=== PATIENT | male | born 1970 | race Caucasian/White ===

== ENCOUNTER 2020-06-20 10:29 | Day surgery (SDC) | payer BC, SELFPAY ==
[2020-06-17 08:18] VITALS: BMI 31.8
--- NOTE | 2020-06-18 15:11 | P.CONAN_ITS ---
Documented by User: Gabrielle Will 06/18/20 15:12 HPI - Anesthesia Eval Consult details Narrative: 50yo M for Colonoscopy [facility] Past Medical History Medical History Hypertension Surgical History Surgical History History of back surgery Social History Social History Smoking Status: Unknown if ever smoked Use of substances other than those prescribed or required for medical reasons: No Advance Directives: No Advance Directives Information Provided: No Advance Directives on File: No Meds Allergies Allergy/AdvReac Type Severity Reaction Status Date / Time amoxicillin Allergy Unknown Unknown Unverified 06/17/20 08:15 Home Medications Medication Instructions Recorded Confirmed Type lisinopril 1 tab PO DAILY 06/17/20 06/17/20 History multivitamin 1 cap PO DAILY 06/17/20 06/17/20 History Exam Exam Date and Time: June 18, 2020 1511 Height,Weight and Vital Signs: Height 6 ft Weight 106.594 kg Assessment and Plan Assessment Anesthesia Assessment: Chart Reviewed Documented by User: Kamille Shankar 06/20/20 10:52 [facility] Past Medical History Medical History Hypertension Surgical History Surgical History History of back surgery Social History Social History Smoking Status: Unknown if ever smoked Use of substances other than those prescribed or required for medical reasons: No Advance Directives: No Advance Directives Information Provided: No Advance Directives on File: No Meds Allergies Allergy/AdvReac Type Severity Reaction Status Date / Time amoxicillin Allergy Unknown Unknown Unverified 06/17/20 08:15 Home Medications Medication Instructions Recorded Confirmed Type lisinopril 1 tab PO DAILY 06/17/20 06/17/20 History multivitamin 1 cap PO DAILY 06/17/20 06/17/20 History Exam Airway Mallampati Class: I TM Dist: >3cm Neck ROM: Full Heart: RRR Lungs: CTA Assessment and Plan Assessment Anesthesia Assessment: Anesthesia Plan Discussed and Chart Reviewed Final Anesthetic Review NPO: Yes ASA Class: II Final Preanesthetic Review: Meds/Allgs Chart Reviewed, Consent Obtained/Reviewed and Anes Risks/Benef Reviewed Patient Risk: Low Procedure Risk: Low Anesthetic Plan Anesthetic Plan: MAC: Disposition: Standard PACU
--- NOTE | 2020-06-20 10:55 | MHC.SHP ---
Pre-Procedural Eval Section A The patient is an INPATIENT: No Changes since office visit: No Cold of Flu in the past 2 weeks, No New Medical Problems, No Changes in Medication and No Patient answered all questions The History & Physical has been completed within 30 days and I have reviewed it.: Yes Section B Chief Complaint: Screening Allergies: Allergies Allergy/AdvReac Type Severity Reaction Status Date / Time amoxicillin Allergy Unknown Unknown Unverified 06/17/20 08:15 Plan Patient has been examined and remains a candidate for the planned procedure
[2020-06-20] MEDS: Lactated Ringers 1,000 ML 100 ML IVCONT (11:01)
[2020-06-20 11:24] VITALS: BP 105/70; PULSE 72; RESP 16; TEMP 36.6; O2SAT 95
--- NOTE | 2020-06-20 11:29 | PM.OP ---
Brief Operative Note Date of Service: 06/20/20 Pre-op diagnosis: screening Post-op diagnosis: same Procedure: colonoscopy Surgeon: Wili Hernandez Anesthesia: MAC Estimated blood loss (mL): 0 Pathology: none sent Condition: stable Disposition: PACU
--- NOTE | 2020-06-20 11:30 | OP_ITS ---
SURGEON: Wili Hernandez MD INDICATIONS: Colon cancer screening. PREOPERATIVE DIAGNOSIS: POSTOPERATIVE DIAGNOSIS: PROCEDURE PERFORMED: Colonoscopy to the terminal ileum. ESTIMATED BLOOD LOSS: COMPLICATIONS: ANESTHESIA: ASSISTANTS: SPECIMENS: MEDICATIONS: Monitored anesthesia care. DESCRIPTION OF PROCEDURE: History and physical performed. The risks and benefits of the procedure were explained to the patient. Informed consent was obtained. The patient was placed in the left lateral decubitus position. A digital rectal exam was performed and was found to be normal. The Olympus pediatric video colonoscope was introduced into the rectum and advanced to the cecum without difficulty. The cecum was identified by transillumination, palpation, and identification of ileocecal valve. Examination was performed and the scope was removed. He tolerated the procedure well and was taken to recovery area in stable condition. FINDINGS: The terminal ileum was normal. The visualized colonic mucosa was normal. The quality of the prep was good. No polyps were identified. Retroflexed examination showed hypertrophic anal papillae and small internal hemorrhoids. IMPRESSION: Normal colonoscopy. RECOMMENDATIONS: 1. Follow up as needed. 2. Repeat colonoscopy is recommended in 10 years for average risk individuals. MD OLVIN Rivera/ANA LUISA / [id number]
[2020-06-20 11:39] VITALS: BP 122/78; PULSE 72; RESP 16; O2SAT 95
[2020-06-20 11:54] VITALS: BP 129/81; PULSE 60; RESP 16; TEMP 36.6; O2SAT 96
== END 2020-06-20 12:31 | disposition home or self-care (01) ==
PROVIDERS: PCP Internal Medicine; Visit Provider Internal Medicine Gastroenterology
PROC: 0DJD8ZZ Inspection of Lower Intestinal Tract, Via Natural or Artificial Opening Endoscopic (ICD-10-PCS; CPT 45378; principal; 2020-06-20 11:50)
DX: Z12.11 Encounter for screening for malignant neoplasm of colon (principal); K62.89 Other specified diseases of anus and rectum; K64.8 Other hemorrhoids; I10 Essential (primary) hypertension; Z79.899 Other long term (current) drug therapy
CPT/HCPCS: 45378

== ENCOUNTER 2020-08-14 14:45 | Outpatient (REF) | payer BC, SELFPAY | END 2020-08-14 14:46 | disposition home or self-care (01) | LOC: HO.HOSX 14:45 | PROVIDERS: Visit Provider Orthopaedic Surgery | DX: Z13.89 Encounter for screening for other disorder (principal) ==

== ENCOUNTER → 2020-08-15 11:56 | Outpatient (BNVA) | payer OTHER, SELFPAY | PROVIDERS: PCP Internal Medicine; Visit Provider Orthopaedic Surgery | DX: M75.51 Bursitis of right shoulder (principal) | CPT/HCPCS: 20610; J1100 ==

== ENCOUNTER 2020-11-13 17:00 | Outpatient (RCR) | payer OTHER, SELFPAY ==
--- NOTE | 2020-09-18 16:12 | MHC.PT.EP ---
[facility] [place] Office [place] Office [place] Office [address] Carmelo Ceballos [address] [phone] F: [phone] F: [phone] F: [phone] F: [phone] Physical Therapy Plan of Care Date of Evaluation: 09/18/20 Date of Surgery: Diagnosis: Bursitis of the right shoulder. Assessment: This is a 50 y/o male referred to skilled PT for bursitis of the right shoulder. 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 He had severe pain for a while which has since subsided. Now, he describes the discomfort as nagging and sore. Assessment reveals tenderness to palpation over the right supraspinatus tendon, mild decreased AROM into flexion and abduction, mild decreased PROM into these motions, impaired strength of the RTC and periscapular muscles, mild postural deficits, decreased/impaired scapulohumeral joint rhythm, mild impaired accessory shoulder mobility, decreased thoracic spinal mobility, and strong/painful resisted tests into external rotation and abduction. The Pt will benefit from skilled PT services in order to reduce impairments and improve limitations including: inability to lay on his left side, soreness w/ all selfcare tasks, decreased ability to lift/carry, and difficulty sleeping. ?? RTC partial tear. Frequency and Duration: The patient will be seen 1x/week for 8 weeks Short Term Goals: -In 3 weeks, Pt to restore PROM of the right shoulder to WNL -In 4 weeks, Pt to report <3/10 pain w/ AROM of the right shoulder [place] Goals: -In 6 weeks, Pt to reduce TTP to absent -In 8 weeks, Pt to demonstrate the ability to lift/place/reach for a 3# object on a high shelf w/ <2/10 pain -In 8 weeks, Pt to improve SPADI score by at least 13 points. (IE: 54/130) Treatment Plan: Modalities to reduce pain, spasms and effusion. Manual therapy to restore motion and function. Therapeutic exercise to improve strength and flexibility. Neuromuscular re-education for posture and balance. Therapeutic activities to return to functional activities of daily living. Electronically signed by: Melissa Leon PT, DPT Please sign and return to therapist. Thank you for your referral.
== END 2021-04-08 13:07 | disposition home or self-care (01) ==
LOC: HO.PT 17:00
PROVIDERS: PCP Internal Medicine; Visit Provider Orthopaedic Surgery
DX: M75.51 Bursitis of right shoulder (principal)
CPT/HCPCS: 97110; 97112; 97140; 97161

== ENCOUNTER 2021-01-19 14:54 | Outpatient (REF) | payer OTHER, SELFPAY ==
--- NOTE | ~2021-01-19 | XR_ITS ---
EXAMINATION: XR CHEST CLINICAL INFORMATION: Chest pain COMPARISON: None TECHNIQUE: 2 views of the chest were obtained. FINDINGS: The cardiac and mediastinal contours are normal. The lungs are clear. There is no pleural effusion or pneumothorax. There are degenerative changes of the spine. XR/XR chest 2V IMPRESSION: No evidence for acute disease in the chest.
--- NOTE | 2021-01-19 14:59 | ECG_ITS ---
Test Reason : SCREENING ENC Blood Pressure : / mmHG Vent. Rate : 069 BPM Atrial Rate : 069 BPM P-R Int : 170 ms QRS Dur : 110 ms QT Int : 394 ms P-R-T Axes : 050 -58 015 degrees QTc Int : 422 ms Normal sinus rhythm Left axis deviation Abnormal ECG When compared with ECG of 03-MAY-2010 20:54, Non-specific change in ST segment in Inferior leads Referred By: Leroy Schneider Electronically Signed By:JEFFERY DOMINIQUE
== END 2021-01-19 14:55 | disposition home or self-care (01) ==
LOC: HO.XRAY 14:54
PROVIDERS: PCP Internal Medicine; Visit Provider Internal Medicine
DX: R07.9 Chest pain, unspecified (principal)
CPT/HCPCS: 71046; 93005

== ENCOUNTER 2022-06-11 14:08 | Inpatient (IN) | payer OTHER, SELFPAY ==
--- NOTE | ~2022-06-11 | XR_ITS ---
EXAMINATION: XR KNEE, RIGHT CLINICAL INFORMATION: Swelling. Pain. COMPARISON: None TECHNIQUE: Two views of the right knee. FINDINGS: No acute fracture or dislocation. Tricompartmental marginal osteophytes, with subchondral sclerosis. Well-corticated ossific density within the posterior intercondylar notch may represent a loose body in joint space or within a Savage's cyst. Small knee joint effusion. Prominent soft tissue swelling anterior to the patella and patellar ligament. XR/XR knee RT 2V IMPRESSION: Marked prepatellar soft tissue swelling and/or prepatellar bursitis. Small knee joint effusion. No fractures.
[2022-06-11 14:11] VITALS: BP 158/98; PULSE 100; RESP 20; TEMP 37.1; O2SAT 96; BMI 30.4
--- NOTE | 2022-06-11 15:20 | ED_ITS ---
HPI - Extremity Problem General Chief complaint: Extremity Problem <Shital Bolaños MASSIEL Vargas - Last Filed: 06/11/22 16:33> Stated complaint: swollen knee; no injury <Shital Bolaños MASSIEL Vargas - Last Filed: 06/11/22 16:33> Time Seen by Provider: 06/11/22 15:16 <Shital Marie MASSIEL Vargas - Last Filed: 06/11/22 16:33> Source: patient <Shital Bolaños MASSIEL Vargas - Last Filed: 06/11/22 16:33> Mode of arrival: ambulatory <Shital Bolaños MASSIEL Vargas - Last Filed: 06/11/22 16:33> Limitations: no limitations <Shital Bolaños MASSIEL Vargas - Last Filed: 06/11/22 16:33> History of Present Illness HPI Narrative: Patient is a 52-year-old male with past medical history of hypertension who presents to the ED today with right knee pain and swelling x2-3 days. He reports that his pain, swelling, and redness have increased since the onset of symptoms. He denies any trauma to knee. He reports having a fever last night T-max 102 degrees for which he took Tylenol with mild relief in symptoms. He denies any previous trauma to knee, HX of DVT/PE, numbness/tingling, decreased sensation, recent travel, and recent illnesses. <Shital Persaudheron Vargas CNP - Last Filed: 06/11/22 16:33> Related Data Home medications: Home Medications Medication Instructions Recorded Confirmed multivitamin 1 cap PO DAILY 06/17/20 02/25/21 Previous Rx's Medication Instructions Recorded lisinopril 20 mg tablet 20 mg PO DAILY 90 days #90 tabs 12/24/21 <Shitalfaye Vargas CNP - Last Filed: 06/11/22 16:33> Allergies/Adverse reactions: Allergies Allergy/AdvReac Type Severity Reaction Status Date / Time amoxicillin Allergy Unknown Unknown Verified 01/16/21 13:32 <Shitalfaye Vargas CNP - Last Filed: 06/11/22 16:33> Review of Systems Review of Systems: Constitutional: Positive fever. No weight loss, chills, weakness or fatigue. Skin: No rash or itching. Cardiovascular: No chest pain, chest pressure or chest discomfort. No pa lpitations or pedal edema. Respiratory: No shortness of breath, cough or sputum production. Gastrointestinal: No anorexia, nausea, vomiting or diarrhea. No abdominal pain Genitourinary: No burning micturition. No urinary frequency or incontinence. Neurologic: No headache, dizziness, syncope, Musculoskeletal: Positive right knee pain, swelling, redness. No other joint pain or stiffness. Hematologic: No bleeding or bruising. Lymphatics: No enlarged lymph nodes. <Shital Vargas CNP - Last Filed: 06/11/22 16:33> Yes all other systems are reviewed and are negative <Shital Vargas CNP - Last Filed: 06/11/22 16:33> [facility] Past Medical History Attestation statement: The following information was validated with the patient. <Shital Vargas CNP - Last Filed: 06/11/22 16:33> Source: old records reviewed <Shital Vargas CNP - Last Filed: 06/11/22 16:33> Medical History: Medical History Bursitis of right shoulder Hypertension <Shital Vargas CNP - Last Filed: 06/11/22 16:33> Surgical History: Surgical History History of back surgery History of lumbar laminectomy <Shital Vargas CNP - Last Filed: 06/11/22 16:33> Family History Family History: Family History Father CVD (cardiovascular disease) Mother No problems noted. 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 <Shital Vargas CNP - Last Filed: 06/11/22 16:33> Physical Exam Vital Signs: Vital Signs: Last Vital Signs Temp 97.8 F 06/11/22 16:43 Pulse 84 06/11/22 16:43 Resp 14 06/11/22 16:43 BP 148/82 H 06/11/22 16:43 Pulse Ox 96 06/11/22 14:11 O2 Del Method 06/11/22 14:11 BMI result Body Mass Index 30.4 <Shital Vargas CNP - Last Filed: 06/11/22 16:33> Vital Signs: Last Vital Signs Temp 97.8 F 06/11/22 16:43 Pulse 84 06/11/22 16:43 Resp 14 06/11/22 16:43 BP 148/82 H 06/11/22 16:43 Pulse Ox 96 06/11/22 14:11 O2 Del Method 06/11/22 14:11 BMI result Body Mass Index 30.4 <JESSE Hill - Last Filed: 06/11/22 17:43> Appearance: Alert.?Oriented to person, place and time. No acute distress.?Normal affect. Eyes: Pupils equal, round and reactive to light.? ENT: Pharynx normal.?? Neck: Normal inspection.? Neck supple.?? CVS: Heart sounds normal. Normal heart rate and rhythm.? Pulses normal.?? Respiratory: No respiratory distress.? Lung sounds clear to auscultation bilater ally?? Abdomen: Soft and non-tender. Normoactive bowel sounds. No pulsatile mass.?? Skin: Skin warm and dry.? Normal skin color.? Normal skin turgor.?? Extremities: Moderate effusion noted over right patella. Erythema, warm to touch over the anterior knee and torres. Full ROM in right knee. No pain with axial loading, no passive flexion/extension of knee. No lower extremity edema.? No calf ttp? Neuro: Moves all extremities spontaneously. Sensation intact bilaterally. CN II- XII intact. No focal neuro deficits. Ambulates with normal steady gait. <Shital Vargas CNP - Last Filed: 06/11/22 16:33> Course Course Course Narrative: Patient is a 52-year-old male with past medical history of hypertension who presents to the ED today with right knee pain and swelling x2-3 days. He reports a fever last night T-max 102 degrees for which he took Tylenol. Patient currently afebrile, mildly tachaycardic at 100 bpm, without hypoxia. PE remarkable for a moderate effusion over the right patella, erythema and warmth over the anterior knee and torres. No pain with passive flexion/extension or axial loading right knee. X-ray of the right knee shows prepatellar soft tissue swelling/prepatellar bursitis, small joint effusion, no fractures. Borders of erythema outlined with skin marker. Will order CBC, CMP, ESR, CRP, lactic acid, blood cultures x2, concern for cellulitis, septic bursitis, septic arthritis, reactive arthritis. Will start patient on ceftriaxone and vanco for empiric treatment.. <Shital Vargas CNP - Last Filed: 06/11/22 16:33> Reevaluation(s) Reevaluation #1: Patient signed out to David MOLINA pending labs and re-evaluation <Shital Vargas CNP - Last Filed: 06/11/22 16:33> Time: 16:23 <Shital Vargas CNP - Last Filed: 06/11/22 16:33> Reevaluation #2: PATIENT TO BE ADMITTED FOR RIGHT LOWER EXTREMITY CELLULITIS AND POSSIBLE SEPTIC BURSITIS. ESR CRP ELEVATED. CASE DISCUSSED WITH DR. Romero WHO AGREE PATIENT SHOULD BE ADMITTED AT LEAST FOR 24 HOURS FOR IV ANTIBIOTICS AND DOES NOT RECOMMEND ASPIRATION OF BURSITIS IN CASE FLUID IS NOT INFECTED AND INTRODUCING NEEDLE WITH BRINGING SURROUNDING CELLULITIC INFECTION INTO KNEE JOINT. CASE DISCUSSED WITH DR. SHELTON IN [facility] WHO AGREE WITH PLAN AND FOR ADMISSION <JESSE Hill - Last Filed: 06/11/22 17:43> Time: 17:40 <JESSE Hill - Last Filed: 06/11/22 17:43> MDM - Extremity (Nontraumatic) MDM Narrative Medical decision making narrative: ceLLULITIS, bURSITIS <JESSE Hill - Last Filed: 06/11/22 17:43> Medical Records Attestation: I reviewed the patient's medical records. <Shital Goodenome, PROFESSOR OF [employer]UDIES - Last Filed: 06/11/22 16:33> Lab Data Attestation: I reviewed the patient's lab results. <Shital Bolaños MASSIEL Vargas - Last Filed: 06/11/22 16:33> Result diagrams: : 06/11/22 16:06 06/11/22 16:06 <Shital Vargas CNP - Last Filed: 06/11/22 16:33> Labs: Lab Results 06/11/22 06/11/22 06/11/22 Range/Units 16:06 16:06 16:06 WBC 10.9 H (4.8-10.8) X10*3/uL RBC 4.96 (4.60-5.80) X10*6/uL Hgb 14.1 (14.0-18.0) g/dl Hct 42.2 (42.0-52.0) % MCV 85.1 (80.0-98.0) fL MCH 28.4 (27.0-33.0) pg MCHC 33.4 (31.0-36.0) g/dl RDW 12.4 (11.0-16.0) % Plt Count 246 (160-400) X10*3/uL MPV 10.0 (9.4-12.4) fL Immature Gran % (Auto) 0.4 (0.0-0.4) % Neut % (Auto) 75.0 H (45-73) % Lymph % (Auto) 13.7 L (20-40) % Forest % (Auto) 9.3 (2-11) % Eos % (Auto) 1.1 (0-4) % Baso % (Auto) 0.5 (0-2) % Lymph # (Auto) 1.5 (1.2-4.9) X10*3/uL Forest # (Auto) 1.0 (0.1-1.2) X10*3/uL Eos # (Auto) 0.1 (0.0-0.4) X10*3/uL Baso # (Auto) 0.1 (0.0-0.2) X10*3/uL Abs Immat Gran (auto) 0.04 H (0.00-0.03) X10*3/uL Absolute Neuts (auto) 8.2 (2.0-8.3) x10*3/uL Absolute Nucleated RBC 0.000 (0.0-0.012) X10*3/uL Nucleated RBC % (auto) 0.0 (0.0-0.2) /100WBC ESR 33 H (0-15) MM/HR Sodium 140 (135-145) mmol/L Potassium 4.1 (3.3-5.1) mmol/L Chloride 102 (96-108) mmol/L Carbon Dioxide 26 (22-29) mmol/L Anion Gap 16 (12-20) BUN 16 (9-16) mg/dL Creatinine 0.88 (0.5-1.4) mg/dL Estim Creat Clear Calc 121.1 Estimated GFR > 60 Random Glucose 95 (60-115) mg/dL Lactic Acid (0.5-2.0) mmol/L Uric Acid 5.3 (3.4-7.0) mg/dL Calcium 9.4 (8.4-10.2) mg/dL Total Bilirubin 0.6 (0.0-1.0) mg/dL AST 20 (5-37) U/L ALT 28 (0-40) U/L Alkaline Phosphatase 65 (39-117) U/L C-Reactive Protein 15.60 H (< or = 0.50) mg/dL Total Protein 8.1 H (6.5-8.0) g/dL Albumin 4.7 (3.5-5.0) g/dL 06/11/22 Range/Units 16:07 WBC (4.8-10.8) X10*3/uL RBC (4.60-5.80) X10*6/uL Hgb (14.0-18.0) g/dl Hct (42.0-52.0) % MCV (80.0-98.0) fL MCH (27.0-33.0) pg MCHC (31.0-36.0) g/dl RDW (11.0-16.0) % Plt Count (160-400) X10*3/uL MPV (9.4-12.4) fL Immature Gran % (Auto) (0.0-0.4) % Neut % (Auto) (45-73) % Lymph % (Auto) (20-40) % Forest % (Auto) (2-11) % Eos % (Auto) (0-4) % Baso % (Auto) (0-2) % Lymph # (Auto) (1.2-4.9) X10*3/uL Forest # (Auto) (0.1-1.2) X10*3/uL Eos # (Auto) (0.0-0.4) X10*3/uL Baso # (Auto) (0.0-0.2) X10*3/uL Abs Immat Gran (auto) (0.00-0.03) X10*3/uL Absolute Neuts (auto) (2.0-8.3) x10*3/uL Absolute Nucleated RBC (0.0-0.012) X10*3/uL Nucleated RBC % (auto) (0.0-0.2) /100WBC ESR (0-15) MM/HR Sodium (135-145) mmol/L Potassium (3.3-5.1) mmol/L Chloride (96-108) mmol/L Carbon Dioxide (22-29) mmol/L Anion Gap (12-20) BUN (9-16) mg/dL Creatinine (0.5-1.4) mg/dL Estim Creat Clear Calc Estimated GFR Random Glucose (60-115) mg/dL Lactic Acid 0.8 (0.5-2.0) mmol/L Uric Acid (3.4-7.0) mg/dL Calcium (8.4-10.2) mg/dL Total Bilirubin (0.0-1.0) mg/dL AST (5-37) U/L ALT (0-40) U/L Alkaline Phosphatase (39-117) U/L C-Reactive Protein (< or = 0.50) mg/dL Total Protein (6.5-8.0) g/dL Albumin (3.5-5.0) g/dL <Shital Vargas, PROFESSOR OF [employer] - Last Filed: 06/11/22 16:33> Lab Results 06/11/22 06/11/22 06/11/22 Range/Units 16:06 16:06 16:06 WBC 10.9 H (4.8-10.8) X10*3/uL RBC 4.96 (4.60-5.80) X10*6/uL Hgb 14.1 (14.0-18.0) g/dl Hct 42.2 (42.0-52.0) % MCV 85.1 (80.0-98.0) fL MCH 28.4 (27.0-33.0) pg MCHC 33.4 (31.0-36.0) g/dl RDW 12.4 (11.0-16.0) % Plt Count 246 (160-400) X10*3/uL MPV 10.0 (9.4-12.4) fL Immature Gran % (Auto) 0.4 (0.0-0.4) % Neut % (Auto) 75.0 H (45-73) % Lymph % (Auto) 13.7 L (20-40) % Forest % (Auto) 9.3 (2-11) % Eos % (Auto) 1.1 (0-4) % Baso % (Auto) 0.5 (0-2) % Lymph # (Auto) 1.5 (1.2-4.9) X10*3/uL Forest # (Auto) 1.0 (0.1-1.2) X10*3/uL Eos # (Auto) 0.1 (0.0-0.4) X10*3/uL Baso # (Auto) 0.1 (0.0-0.2) X10*3/uL Abs Immat Gran (auto) 0.04 H (0.00-0.03) X10*3/uL Absolute Neuts (auto) 8.2 (2.0-8.3) x10*3/uL Absolute Nucleated RBC 0.000 (0.0-0.012) X10*3/uL Nucleated RBC % (auto) 0.0 (0.0-0.2) /100WBC ESR 33 H (0-15) MM/HR Sodium 140 (135-145) mmol/L Potassium 4.1 (3.3-5.1) mmol/L Chloride 102 (96-108) mmol/L Carbon Dioxide 26 (22-29) mmol/L Anion Gap 16 (12-20) BUN 16 (9-16) mg/dL Creatinine 0.88 (0.5-1.4) mg/dL Estim Creat Clear Calc 121.1 Estimated GFR > 60 Random Glucose 95 (60-115) mg/dL Lactic Acid (0.5-2.0) mmol/L Uric Acid 5.3 (3.4-7.0) mg/dL Calcium 9.4 (8.4-10.2) mg/dL Total Bilirubin 0.6 (0.0-1.0) mg/dL AST 20 (5-37) U/L ALT 28 (0-40) U/L Alkaline Phosphatase 65 (39-117) U/L C-Reactive Protein 15.60 H (< or = 0.50) mg/dL Total Protein 8.1 H (6.5-8.0) g/dL Albumin 4.7 (3.5-5.0) g/dL 06/11/22 Range/Units 16:07 WBC (4.8-10.8) X10*3/uL RBC (4.60-5.80) X10*6/uL Hgb (14.0-18.0) g/dl Hct (42.0-52.0) % MCV (80.0-98.0) fL MCH (27.0-33.0) pg MCHC (31.0-36.0) g/dl RDW (11.0-16.0) % Plt Count (160-400) X10*3/uL MPV (9.4-12.4) fL Immature Gran % (Auto) (0.0-0.4) % Neut % (Auto) (45-73) % Lymph % (Auto) (20-40) % Forest % (Auto) (2-11) % Eos % (Auto) (0-4) % Baso % (Auto) (0-2) % Lymph # (Auto) (1.2-4.9) X10*3/uL Forest # (Auto) (0.1-1.2) X10*3/uL Eos # (Auto) (0.0-0.4) X10*3/uL Baso # (Auto) (0.0-0.2) X10*3/uL Abs Immat Gran (auto) (0.00-0.03) X10*3/uL Absolute Neuts (auto) (2.0-8.3) x10*3/uL Absolute Nucleated RBC (0.0-0.012) X10*3/uL Nucleated RBC % (auto) (0.0-0.2) /100WBC ESR (0-15) MM/HR Sodium (135-145) mmol/L Potassium (3.3-5.1) mmol/L Chloride (96-108) mmol/L Carbon Dioxide (22-29) mmol/L Anion Gap (12-20) BUN (9-16) mg/dL Creatinine (0.5-1.4) mg/dL Estim Creat Clear Calc Estimated GFR Random Glucose (60-115) mg/dL Lactic Acid 0.8 (0.5-2.0) mmol/L Uric Acid (3.4-7.0) mg/dL Calcium (8.4-10.2) mg/dL Total Bilirubin (0.0-1.0) mg/dL AST (5-37) U/L ALT (0-40) U/L Alkaline Phosphatase (39-117) U/L C-Reactive Protein (< or = 0.50) mg/dL Total Protein (6.5-8.0) g/dL Albumin (3.5-5.0) g/dL <JESSE Hill - Last Filed: 06/11/22 17:43> Imaging Data XR knee: Radiologist's impression: XR/XR knee RT 2V IMPRESSION: Marked prepatellar soft tissue swelling and/or prepatellar bursitis. Small knee joint effusion. No fractures. <Shital Vargas CNP - Last Filed: 06/11/22 16:33> Discharge Plan Discharge Clinical Impression: Bursitis, prepatellar, right, Effusion, right knee, Cellulitis <Shital Vargas CNP - Last Filed: 06/11/22 16:33> Patient Disposition: Admitted As Inpatient <Shital Vargas CNP - Last Filed: 06/11/22 16:33>
[2022-06-11 16:14] LABS: MANUAL DIFF FLAG NO
[2022-06-11 16:16] LABS: Basophils Absolute Auto 0.1 X10*3/uL (0.0-0.2); Basophils Percent Auto 0.5 % (0-2); Eosinophils Absolute Auto 0.1 X10*3/uL (0.0-0.4); Eosinophils Percent Auto 1.1 % (0-4); Hematocrit 42.2 % (42.0-52.0); Hemoglobin 14.1 g/dl (14.0-18.0); Imm Gran Abs Auto 0.04 X10*3/uL (0.00-0.03); Imm Gran Pct Auto 0.4 % (0.0-0.4); Lymphocytes Absolute Auto 1.5 X10*3/uL (1.2-4.9); Lymphocytes Percent Auto 13.7 % (20-40); Mean Corpuscular HGB Conc 33.4 g/dl (31.0-36.0); Mean Corpuscular Hemoglobin 28.4 pg (27.0-33.0); Mean Corpuscular Volume 85.1 fL (80.0-98.0); Monocytes Percent Auto 9.3 % (2-11); Neutrophils Absolute Auto 8.2 x10*3/uL (2.0-8.3); Platelet Count 246 X10*3/uL (160-400); Red Blood Count 4.96 X10*6/uL (4.60-5.80); Red Cell Distribution Width 12.4 % (11.0-16.0); White Blood Count 10.9 X10*3/uL (4.8-10.8)
[2022-06-11] MEDS: cefTRIAXone sodium 1 GM in 0.9 % Sodium Chloride 50 ML IV (16:22)
[2022-06-11 16:29] LABS: Lactic Acid 0.8 mmol/L (0.5-2.0)
[2022-06-11 16:33] LABS: Alanine Aminotransferase 28 U/L (0-40); Albumin Level 4.7 g/dL (3.5-5.0); Alkaline Phosphatase 65 U/L (39-117); Anion Gap 16 (12-20); Aspartate Amino Transferase 20 U/L (5-37); Bilirubin Total 0.6 mg/dL (0.0-1.0); Blood Urea Nitrogen 16 mg/dL (9-16); Calcium 9.4 mg/dL (8.4-10.2); Carbon Dioxide 26 mmol/L (22-29); Chloride 102 mmol/L (96-108); Creatinine Clr Calc Pharmacy 121.1; Estimated Glomerular Filt Rate > 60; Glucose Random 95 mg/dL (60-115); Potassium 4.1 mmol/L (3.3-5.1); Sodium 140 mmol/L (135-145); Total Protein 8.1 g/dL (6.5-8.0)
[2022-06-11 16:43] VITALS: BP 148/82; PULSE 84; RESP 14; TEMP 36.6
[2022-06-11 16:45] LABS: Uric Acid 5.3 mg/dL (3.4-7.0)
[2022-06-11 17:00] LABS: Erythrocyte Sedimentation Rate 33 MM/HR (0-15)
--- NOTE | 2022-06-11 18:18 | P.HPHOSP_ITS ---
History of Present Illness Date of Service: 06/11/22 Chief Complaint: Right knee pain and effusion a 52 years old male with PMH of HTN who presents to the hospital with 3 days of right knee pain, swelling and erythema. The patient report that starting Tuesday he noticed pain in his right knee but he was able to sleep that night. next day the pain worsens and became associated with swelling and mild erythema with reported chills and fever. he tried rest and pain meds with no significant improvement as he spiked fever earlier this morning with increase swelling and erythema. denies any chest pain, palpiations, N\V\D, change in bowel habit or urinary symptoms. He has full range of motion in the knee, no reported drainage or open wounds. In the ED he was found to have cellulitis with associated bursitis of the right knee. admitted for further eval and treatment. Review of Systems Review of Systems: reporting fever, chills with generalized weakness No chest pain, palpitation No shortness of breath or coughing No abdominal pain, nausea or vomiting No urinary symptoms erythema and swelling of Rt knee PMFSH Medical History Bursitis of right shoulder Hypertension Family History Father CVD (cardiovascular disease) Mother No problems noted. 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 Meds Allergies Allergy/AdvReac Type Severity Reaction Status Date / Time amoxicillin Allergy Unknown Unknown Verified 01/16/21 13:32 Active Medications: Current Medications Acetaminophen (Acetaminophen 325 Mg Tablet) 650 mg PO Q6H PRN PRN Reason: Pain, Mild (Pain Scale 1-3) Diphenhydramine HCl (Diphenhydramine Hcl 50 Mg/Ml Vial) 25 mg IVPUSH Q6H PRN PRN Reason: Allergic Reaction Enoxaparin Sodium (Enoxaparin Sodium 40 Mg/0.4 Ml Syringe) 40 mg SUBCUT Q24H [facility] Cefazolin Sodium/Dextrose (Ancef) 2 gm in 50 mls @ 100 mls/hr IV Q8H [facility] Ibuprofen (Ibuprofen 400 Mg Tablet) 400 mg PO Q6H PRN PRN Reason: Fever or Pain, Mild (Pain Scale 1-3) Ondansetron HCl (Ondansetron Hcl 4 Mg/2 Ml Vial) 4 mg IVPUSH Q8H PRN PRN Reason: Nausea and Vomiting Pharmacy Consult (Consult Rx Perform Med Rec) 1 each MISCELLANE ONCE PRN PRN Reason: Consult order Pharmacy Consult (Consult Rx Vancomycin Dosing) 1 each MISCELLANE DAILY PRN PRN Reason: Consult order Sodium Chloride (0.9 % Sodium Chloride Flush 3 Ml Syringe) 3 ml IVFLUSH QSHIFT [facility] Home Medications Medication Instructions Recorded Confirmed Last Taken Type multivitamin 1 cap PO DAILY 06/17/20 02/25/21 Unknown History Physical Exam Vital Signs and Narrative: Vital Signs: Last Vital Signs Temp 97.8 F 06/11/22 16:43 Pulse 84 06/11/22 16:43 Resp 14 06/11/22 16:43 BP 148/82 H 06/11/22 16:43 Pulse Ox 96 06/11/22 14:11 O2 Del Method 06/11/22 14:11 BMI result Body Mass Index 30.4 Const: Other: Constitutional : Awake, interactive, not in distress Neck : Normal inspection, Supple Cardiovascular : RRR, no JVP, no lower extremity edema Respiratory : good bilateral air entry, no crackles, wheezes or rhonchi Gastrointestinal: soft, lax, Normal bowel sounds, Non tender Skin : Warm, Dry, erythema and swelling of Rt knee with mild tenderness and full range of motion Neurological : Alert & oriented x3, No focal deficit Results Labs CBC and Chem 7: 06/11/22 16:06 06/11/22 16:06 Labs: Laboratory Results - last 24 hr 06/11/22 06/11/22 06/11/22 16:06 16:06 16:06 MCV 85.1 MCH 28.4 MCHC 33.4 RDW 12.4 Plt Count 246 MPV 10.0 Immature Gran % (Auto) 0.4 Neut % (Auto) 75.0 H Lymph % (Auto) 13.7 L [place] % (Auto) 9.3 Eos % (Auto) 1.1 Baso % (Auto) 0.5 Lymph # (Auto) 1.5 [place] # (Auto) 1.0 Eos # (Auto) 0.1 Baso # (Auto) 0.1 Abs Immat Gran (auto) 0.04 H Absolute Neuts (auto) 8.2 Absolute Nucleated RBC 0.000 Nucleated RBC % (auto) 0.0 ESR 33 H Anion Gap 16 Estim Creat Clear Calc 121.1 Estimated GFR > 60 Random Glucose 95 Lactic Acid Uric Acid 5.3 Calcium 9.4 Total Bilirubin 0.6 AST 20 ALT 28 Alkaline Phosphatase 65 C-Reactive Protein 15.60 H Total Protein 8.1 H Albumin 4.7 06/11/22 16:07 MCV MCH MCHC RDW Plt Count MPV Immature Gran % (Auto) Neut % (Auto) Lymph % (Auto) [place] % (Auto) Eos % (Auto) Baso % (Auto) Lymph # (Auto) [place] # (Auto) Eos # (Auto) Baso # (Auto) Abs Immat Gran (auto) Absolute Neuts (auto) Absolute Nucleated RBC Nucleated RBC % (auto) ESR Anion Gap Estim Creat Clear Calc Estimated GFR Random Glucose Lactic Acid 0.8 Uric Acid Calcium Total Bilirubin AST ALT Alkaline Phosphatase C-Reactive Protein Total Protein Albumin Imaging Radiologist's Impressions: Impressions Knee X-Ray 06/11/22 14:23 IMPRESSION: Marked prepatellar soft tissue swelling and/or prepatellar bursitis. Small knee joint effusion. No fractures. Assessment and Plan (1) Bursitis, prepatellar, right: Status: Acute (2) Cellulitis: Status: Acute Plan a 52 years old male with PMH of HTN who presents to the hospital with 3 days of right knee pain, swelling and erythema. RLE Cellutis, Bursitis of RT Prepatellar bursa Not septic full range of motion MRSA nasal pending cultures Start Cefazolin and Vancomycin orthopedic consult HTN resume Lisinopril DVT PPx Lovenox The patient will need 2 overnight inpatient hospital stay for treatment of bursitis and cellulitis pending Orthopedic eval to prevent possible decompensation into sepsis. Quality Stroke Does the patient have a stroke diagnosis?: No VTE Prior VTE?: No VTE Risk Level:: Medical - moderate - high VTE Device Contraindication: Treatment Not Indicated VTE Drug Contraindication: N/A - Med Ordered
--- NOTE | 2022-06-11 18:54 | PHA.MEDREC ---
Pharmacy Consult ? Medication Reconciliation Pharmacy has completed the medication reconciliation.
[2022-06-11] MEDS: Enoxaparin Sodium 40 MG/0.4 ML SYRINGE SUBCUT (20:03)
[2022-06-11] MEDS: Ibuprofen 400 MG TABLET PO (20:07)
[2022-06-11 20:35] VITALS: BP 160/94; PULSE 106; RESP 18; TEMP 37.7; O2SAT 95
[2022-06-11] MEDS: Acetaminophen 325 MG TABLET 650 MG PO (20:53)
[2022-06-11 21:17] LABS: COVID-19 Test Negative (Negative)
[2022-06-11] MEDS: ceFAZolin Sodium/Dextrose,Iso 2 GM/50 ML PIGGYBACK IV (22:03)
[2022-06-11 22:04] VITALS: RESP 16
[2022-06-11 22:07] VITALS: TEMP 36.9
--- NOTE | 2022-06-11 23:19 | PC.NURSE ---
Attempted to provide RN to RN report. BELL Garcia will call back for report.
[2022-06-11] MEDS: 0.9 % Sodium Chloride Flush 3 ML SYRINGE IVFLUSH (23:54)
[2022-06-12] VITALS (7 sets, daily range): BP systolic 123–145; BP diastolic 64–93; PULSE 70–79; RESP 16–18; TEMP 36.1–37.1; O2SAT 93–97
[2022-06-12] MEDS: ceFAZolin Sodium/Dextrose,Iso 2 GM/50 ML PIGGYBACK IV ×3 (05:30→20:27)
[2022-06-12] MEDS: Acetaminophen 325 MG TABLET 650 MG PO ×2 (05:34→22:28)
[2022-06-12] MEDS: Ibuprofen 400 MG TABLET PO ×3 (05:34→22:28)
[2022-06-12] MEDS: vancomycin HCL 1,250 MG in 0.9 % Sodium Chloride 250 ML 166.67 MG IV (06:02)
[2022-06-12 06:28] LABS: Hematocrit 39.6 % (42.0-52.0); Hemoglobin 13.2 g/dl (14.0-18.0); Mean Corpuscular HGB Conc 33.3 g/dl (31.0-36.0); Mean Corpuscular Hemoglobin 28.4 pg (27.0-33.0); Mean Corpuscular Volume 85.3 fL (80.0-98.0); Mean Platelet Volume 10.1 fL (9.4-12.4); Platelet Count 223 X10*3/uL (160-400); Red Blood Count 4.64 X10*6/uL (4.60-5.80); Red Cell Distribution Width 12.6 % (11.0-16.0); White Blood Count 10.3 X10*3/uL (4.8-10.8)
[2022-06-12 06:44] LABS: Anion Gap 17 (12-20); Blood Urea Nitrogen 15 mg/dL (9-16); Calcium 8.8 mg/dL (8.4-10.2); Carbon Dioxide 23 mmol/L (22-29); Chloride 104 mmol/L (96-108); Creatinine Clr Calc Pharmacy 119.7; Estimated Glomerular Filt Rate > 60; Glucose Random 111 mg/dL (60-115); Potassium 4.3 mmol/L (3.3-5.1); Sodium 140 mmol/L (135-145)
[2022-06-12] MEDS: 0.9 % Sodium Chloride Flush 3 ML SYRINGE IVFLUSH ×2 (08:00→22:30)
--- NOTE | 2022-06-12 09:21 | HE.PHANOTE ---
VANCOMYCIN ADDENDUM: NO CHANGE IN SCR, WILL KEEP SAME PLAN. LEVEL WILL BE CHECKED CECILIA MORNING
--- NOTE | 2022-06-12 10:39 | P.CONOP_ITS ---
History of Present Illness HPI Consult date: 06/12/22 Chief complaint: swollen knee; no injury Narrative: a 52 years old male with PMH of HTN who presents to the hospital with 3 days of right knee pain, swelling and erythema. The patient report that starting Tuesday. The following day the pain worsened and became associated with swelling and mild erythema. He tried rest and pain meds with no significant improvement. He reports that he had a fever yesterday with increase swelling and erythema prompting him to report to the ED. The patient was admitted to the [facility] service for cellulitis. IV abx were started and orthopedics was conshulted for further evaluation and treatment. [facility] Past Medical History Medical History Bursitis of right shoulder Hypertension Family History Family History Father CVD (cardiovascular disease) Mother No problems noted. 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 Meds Allergies Allergy/AdvReac Type Severity Reaction Status Date / Time amoxicillin Allergy Unknown Unknown Verified 01/16/21 13:32 Active Medications: Current Medications Acetaminophen (Acetaminophen 325 Mg Tablet) 650 mg PO Q6H PRN PRN Reason: Pain, Mild (Pain Scale 1-3) Last Admin: 06/12/22 05:34 Dose: 650 mg Diphenhydramine HCl (Diphenhydramine Hcl 50 Mg/Ml Vial) 25 mg IVPUSH Q6H PRN PRN Reason: Allergic Reaction Enoxaparin Sodium (Enoxaparin Sodium 40 Mg/0.4 Ml Syringe) 40 mg SUBCUT Q24H S Last Admin: 06/11/22 20:03 Dose: 40 mg Cefazolin Sodium/Dextrose (Ancef) 2 gm in 50 mls @ 100 mls/hr IV Q8H [facility] Last Infusion: 06/12/22 06:11 Dose: Infused Vancomycin HCl 1,250 mg/ (Sodium Chloride) 250 mls @ 166.667 mls/hr IV Q12H [facility] Last Infusion: 06/12/22 07:17 Dose: Infused Ibuprofen (Ibuprofen 400 Mg Tablet) 400 mg PO Q6H PRN PRN Reason: Fever or Pain, Mild (Pain Scale 1-3) Last Admin: 06/12/22 05:34 Dose: 400 mg Ondansetron HCl (Ondansetron Hcl 4 Mg/2 Ml Vial) 4 mg IVPUSH Q8H PRN PRN Reason: Nausea and Vomiting Pharmacy Consult (Consult Rx Perform Med Rec) 1 each MISCELLANE ONCE PRN PRN Reason: Consult order Pharmacy Consult (Consult Rx Vancomycin Dosing) 1 each MISCELLANE DAILY PRN PRN Reason: Consult order Sodium Chloride (0.9 % Sodium Chloride Flush 3 Ml Syringe) 3 ml IVFLUSH QSHIFT [facility] Last Admin: 06/12/22 08:00 Dose: 3 ml Home Medications Medication Instructions Recorded Confirmed Last Taken Type multivitamin 1 cap PO DAILY 06/17/20 06/11/22 06/11/22 History Physical Exam Vital Signs: Vital Signs: Last Vital Signs Temp 97.0 F 06/12/22 07:27 Pulse 73 06/12/22 07:27 Resp 18 06/12/22 07:27 BP 139/78 06/12/22 07:27 Pulse Ox 96 06/12/22 07:27 O2 Del Method 06/12/22 07:27 BMI result Body Mass Index 30.4 Const: General: cooperative, healthy appearing and no acute distress Resp: Effort & Inspection: normal respiratory effort and able to speak in complete sentences Cardio: Rate: regular rate Peripheral pulses: Peripheral pulses 2+ throughout GI: Palpation (GI): Soft to palpation Skin: Lesions: no lesions Rashes: no rashes Extrem: Other: Right knee prepatellar bursitis. No significant tenderness to palpation over the bursa. Mild erythema over the knee extending down the anterior aspect of the tibia. Patient is able to demonstrate painless rom 0-110. NVI. Results Labs Result Diagrams: 06/12/22 06:01 06/13/22 05:38 Labs: Abnormal lab results 06/11/22 06/11/22 06/11/22 Range/Units 16:06 16:06 16:06 WBC 10.9 H (4.8-10.8) X10*3/uL Hgb (14.0-18.0) g/dl Hct (42.0-52.0) % Neut % (Auto) 75.0 H (45-73) % Lymph % (Auto) 13.7 L (20-40) % Abs Immat Gran (auto) 0.04 H (0.00-0.03) X10*3/uL ESR 33 H (0-15) MM/HR C-Reactive Protein 15.60 H (< or = 0.50) mg/dL Total Protein 8.1 H (6.5-8.0) g/dL 06/12/22 Range/Units 06:01 WBC (4.8-10.8) X10*3/uL Hgb 13.2 L (14.0-18.0) g/dl Hct 39.6 L (42.0-52.0) % Neut % (Auto) (45-73) % Lymph % (Auto) (20-40) % Abs Immat Gran (auto) (0.00-0.03) X10*3/uL ESR (0-15) MM/HR C-Reactive Protein (< or = 0.50) mg/dL Total Protein (6.5-8.0) g/dL H & H 06/11/22 06/12/22 Range/Units 16:06 06:01 Hgb 14.1 13.2 L (14.0-18.0) g/dl Hct 42.2 39.6 L (42.0-52.0) % All other labs normal. Assessment and Plan (1) Bursitis, prepatellar, right: Status: Acute Knee X-Ray? 06/11/22 14:23 IMPRESSION: Marked prepatellar soft tissue swelling and/or prepatellar bursitis. Small knee joint effusion. No fractures. ? Cont. abx and monitor for resolution of symptoms. No open areas, no further orthopedic intervention needed at this time. (2) Cellulitis: Status: Acute Procedures Date of Service Date of Service: 06/12/22
--- NOTE | 2022-06-12 10:39 | PM.EVENT ---
Event Note Date of Service: 06/12/22 Event Note: Patient resting comfortably in bed. No overnight events. Has been on IV Abx with improving symptoms. Reports less pain and redness. Continue abx - no orthopedic intervention needed at this time.
--- NOTE | 2022-06-12 11:54 | P.PNIM_ITS ---
Subjective Subjective Date of Service: 06/12/22 Interval History: seen and evaluated this morning erythema and swelling going down no other overnight events Review of Systems reporting fever, chills with generalized weakness No chest pain, palpitation No shortness of breath or coughing No abdominal pain, nausea or vomiting No urinary symptoms erythema and swelling of Rt knee improving Physical Exam Vital Signs: Vital Signs: Last Vital Signs Temp 97.3 F 06/12/22 11:45 Pulse 75 06/12/22 11:45 Resp 16 06/12/22 11:45 BP 141/93 H 06/12/22 11:45 Pulse Ox 97 06/12/22 11:45 O2 Del Method 06/12/22 11:45 BMI result Body Mass Index 30.4 Const: Other: Constitutional : Awake, interactive, not in distress Neck : Normal inspection, Supple Cardiovascular : RRR, no JVP, no lower extremity edema Respiratory : good bilateral air entry, no crackles, wheezes or rhonchi Gastrointestinal: soft, lax, Normal bowel sounds, Non tender Skin : Warm, Dry, improving erythema and swelling of Rt knee with no tenderness and full range of motion Neurological : Alert & oriented x3, No focal deficit Objective Data Active Medications Acetaminophen (Acetaminophen 325 Mg Tablet) 650 mg PO Q6H PRN PRN Reason: Pain, Mild (Pain Scale 1-3) Last Admin: 06/12/22 05:34 Dose: 650 mg Documented By: GINGER Diphenhydramine HCl (Diphenhydramine Hcl 50 Mg/Ml Vial) 25 mg IVPUSH Q6H PRN PRN Reason: Allergic Reaction Enoxaparin Sodium (Enoxaparin Sodium 40 Mg/0.4 Ml Syringe) 40 mg SUBCUT Q24H [facility] Last Admin: 06/11/22 20:03 Dose: 40 mg Documented By: JANICE Cefazolin Sodium/Dextrose (Ancef) 2 gm in 50 mls @ 100 mls/hr IV Q8H [facility] Last Infusion: 06/12/22 06:11 Dose: 0 mls/hr Documented By: GINGER Vancomycin HCl 1,250 mg/ (Sodium Chloride) 250 mls @ 166.667 mls/hr IV Q12H [facility] Last Infusion: 06/12/22 07:17 Dose: 0 mls/hr Documented By: EPIFANIO Ibuprofen (Ibuprofen 400 Mg Tablet) 400 mg PO Q6H PRN PRN Reason: Fever or Pain, Mild (Pain Scale 1-3) Last Admin: 06/12/22 05:34 Dose: 400 mg Documented By: GINGER Lisinopril (Lisinopril 20 Mg Tablet) 20 mg PO DAILY [facility]; Protocol Ondansetron HCl (Ondansetron Hcl 4 Mg/2 Ml Vial) 4 mg IVPUSH Q8H PRN PRN Reason: Nausea and Vomiting Pharmacy Consult (Consult Rx Perform Med Rec) 1 each MISCELLANE ONCE PRN PRN Reason: Consult order Pharmacy Consult (Consult Rx Vancomycin Dosing) 1 each MISCELLANE DAILY PRN PRN Reason: Consult order Sodium Chloride (0.9 % Sodium Chloride Flush 3 Ml Syringe) [facility] Last Admin: 06/12/22 08:00 Dose: 3 ml Documented By: EPIFANIO Labs CBC & Chem 7: 06/12/22 06:01 06/12/22 06:01 Labs: Laboratory Results - last 24 hr 06/11/22 06/11/22 06/11/22 16:06 16:06 16:06 MCV 85.1 MCH 28.4 MCHC 33.4 RDW 12.4 Plt Count 246 MPV 10.0 Immature Gran % (Auto) 0.4 Neut % (Auto) 75.0 H Lymph % (Auto) 13.7 L [place] % (Auto) 9.3 Eos % (Auto) 1.1 Baso % (Auto) 0.5 Lymph # (Auto) 1.5 [place] # (Auto) 1.0 Eos # (Auto) 0.1 Baso # (Auto) 0.1 Abs Immat Gran (auto) 0.04 H Absolute Neuts (auto) 8.2 Absolute Nucleated RBC 0.000 Nucleated RBC % (auto) 0.0 ESR 33 H Anion Gap 16 Estim Creat Clear Calc 121.1 Estimated GFR > 60 Random Glucose 95 Lactic Acid Uric Acid 5.3 Calcium 9.4 Total Bilirubin 0.6 AST 20 ALT 28 Alkaline Phosphatase 65 C-Reactive Protein 15.60 H Total Protein 8.1 H Albumin 4.7 COVID-19 (INOCENCIO) COVID-19 Clin Com 06/11/22 06/11/22 06/12/22 16:07 20:31 06:01 MCV 85.3 MCH 28.4 MCHC 33.3 RDW 12.6 Plt Count 223 MPV 10.1 Immature Gran % (Auto) Neut % (Auto) Lymph % (Auto) [place] % (Auto) Eos % (Auto) Baso % (Auto) Lymph # (Auto) [place] # (Auto) Eos # (Auto) Baso # (Auto) Abs Immat Gran (auto) Absolute Neuts (auto) Absolute Nucleated RBC 0.000 Nucleated RBC % (auto) 0.0 ESR Anion Gap Estim Creat Clear Calc Estimated GFR Random Glucose Lactic Acid 0.8 Uric Acid Calcium Total Bilirubin AST ALT Alkaline Phosphatase C-Reactive Protein Total Protein Albumin COVID-19 (INOCENCIO) Negative COVID-19 Clin Com See Note 06/12/22 06:01 MCV MCH MCHC RDW Plt Count MPV Immature Gran % (Auto) Neut % (Auto) Lymph % (Auto) [place] % (Auto) Eos % (Auto) Baso % (Auto) Lymph # (Auto) [place] # (Auto) Eos # (Auto) Baso # (Auto) Abs Immat Gran (auto) Absolute Neuts (auto) Absolute Nucleated RBC Nucleated RBC % (auto) ESR Anion Gap 17 Estim Creat Clear Calc 119.7 Estimated GFR > 60 Random Glucose 111 Lactic Acid Uric Acid Calcium 8.8 D Total Bilirubin AST ALT Alkaline Phosphatase C-Reactive Protein Total Protein Albumin COVID-19 (INOCENCIO) COVID-19 Clin Com Assessment and Plan (1) Bursitis, prepatellar, right: Status: Acute (2) Cellulitis: Status: Acute Plan a 52 years old male with PMH of HTN who presents to the hospital with 3 days of right knee pain, swelling and erythema. RLE Cellutis, Bursitis of RT Prepatellar bursa improving, full range of motion MRSA nasal pending pending cultures continue Cefazolin and Vancomycin orthopedic consult HTN resume Lisinopril DVT PPx Lovenox The patient will need overnight inpatient hospital stay for treatment of bursitis and cellulitis pending Orthopedic eval to prevent possible decompe nsation into sepsis. Quality Stroke Does the patient have a stroke diagnosis?: No VTE Prior VTE?: No VTE Risk Level:: Medical - moderate - high VTE Device Contraindication: Treatment Not Indicated VTE Drug Contraindication: N/A - Med Ordered
[2022-06-12 12:45] LABS: MRSA Nasal PCR NEGATIVE (Negative); SA Nasal PCR POSITIVE (Negative)
[2022-06-12] MEDS: lisinopriL 20 MG TABLET PO (13:17)
[2022-06-12] MEDS: vancomycin HCL 1,250 MG in 0.9 % Sodium Chloride 250 ML 166.7 MG IV (18:05)
[2022-06-12] MEDS: Enoxaparin Sodium 40 MG/0.4 ML SYRINGE SUBCUT (20:26)
[2022-06-13 03:20] VITALS: RESP 16
[2022-06-13] MEDS: ceFAZolin Sodium/Dextrose,Iso 2 GM/50 ML PIGGYBACK IV (05:41)
[2022-06-13] MEDS: vancomycin HCL 1,250 MG in 0.9 % Sodium Chloride 250 ML 166.7 MG IV (06:38)
[2022-06-13] MEDS: Ibuprofen 400 MG TABLET PO (06:43)
[2022-06-13] MEDS: Acetaminophen 325 MG TABLET 650 MG PO (06:43)
[2022-06-13 06:48] LABS: Vancomycin Random 5.8 mcg/mL (15-20)
[2022-06-13 07:05] VITALS: BP 136/72; PULSE 69; RESP 16; TEMP 36.1; O2SAT 97
[2022-06-13 08:15] LABS: Creatinine Clr Calc Pharmacy 128.4; Estimated Glomerular Filt Rate > 60
--- NOTE | 2022-06-13 08:22 | HE.PHANOTE ---
VANCO DOSING ADJUSTMENT DOSE INCREASED TO 1750 Q 12 BASED ON LOW TROUGH OF 5.8 AND SCR OF 0.83. Dose of 1250 already given in am so next trough set for 06/14 @ 1700
[2022-06-13] MEDS: lisinopriL 20 MG TABLET PO (08:30)
[2022-06-13] MEDS: 0.9 % Sodium Chloride Flush 3 ML SYRINGE IVFLUSH (08:30)
--- NOTE | 2022-06-13 10:46 | PM.DS ---
DS: Providers Provider Date of Service: 06/13/22 Date of admission: 06/11/22 17:52 Primary care physician: Leroy Schneider MD Consults: 06/11/22 17:52 Consult to Orthopedics Routine Consulting Provider: Bereket Herrera Reason for consultation: Bursitis w prepatellar effusion RLE DS: Diagnosis Discharge Diagnosis (1) Bursitis, prepatellar, right: Status: Acute (2) Cellulitis: Status: Acute DS: Summary Hospital Course Hospital Course: Admission note HPI a 52 years old male with PMH of HTN who presents to the hospital with 3 days of right knee pain, swelling and erythema. The patient report that starting Tuesday he noticed pain in his right knee but he was able to sleep that night. next day the pain worsens and became associated with swelling and mild erythema with reported chills and fever. he tried rest and pain meds with no significant improvement as he spiked fever earlier this morning with increase swelling and erythema. denies any chest pain, palpiations, N\V\D, change in bowel habit or urinary symptoms. He has full range of motion in the knee, no reported drainage or open wounds. In the ED he was found to have cellulitis with associated bursitis of the right knee. admitted for further eval and treatment. Hospital course The patient was admitted for evaluation of right lower extremity cellulitis with evidence of bursitis of the right prepatellar bursa. Treated with IV antibiotics of vancomycin and cefazolin for evidence of infection as knee x-ray was consistent with bursitis and small knee effusion. Had full range of motion in the knee as he was evaluated by orthopedic team who recommended no intervention. Cultures remain negative during the hospital stay. Plan to be discharged home on doxycycline and Ceftin to finish total of 10 days of antibiotics. To follow-up with PCP as outpatient. Continue oral doxycycline and Ceftin for 7 more days Apply cold compressors to the knee and use ibuprofen as needed for pain and swelling Avoid kneeling To follow-up with PCP for monitor of the progress Come back to the hospital for any worsening swelling, drainage or fever. Time Spent with Patient Time attestation: Total time spent providing and/or coordinating discharge services: Discharge coordination time: Greater than 30 minutes Quality: Safe Use of Opioids Does Pt have an Active Cancer Diagnosis on the Problem List?: No Quality: Stroke Does the patient have a stroke diagnosis?: No Physical Exam Vital Signs: Vital Signs: Last Vital Signs Temp 97 F 06/13/22 07:05 Pulse 69 06/13/22 07:05 Resp 16 06/13/22 07:05 BP 136/72 06/13/22 07:05 Pulse Ox 97 06/13/22 07:05 O2 Del Method 06/13/22 07:05 BMI result Body Mass Index 30.4 Const: Other: Constitutional : Awake, interactive, not in distress Neck : Normal inspection, Supple Cardiovascular : RRR, no JVP, no lower extremity edema Respiratory : good bilateral air entry, no crackles, wheezes or rhonchi Gastrointestinal: soft, lax, Normal bowel sounds, Non tender Skin : Warm, Dry, resolved erythema and of Rt knee with no tenderness and full range of motion, mild swelling over the patella. Neurological : Alert & oriented x3, No focal deficit DS: Data Data Completed and Pending Labs on day of discharge: Laboratory Results - last 24 hr 06/11/22 06/13/22 06/13/22 20:31 05:38 05:38 Creatinine 0.83 Estim Creat Clear Calc 128.4 Estimated GFR > 60 Nasal Screen MRSA (PCR) NEGATIVE Nasal S. aureus Screen POSITIVE A Nasal MRSA/S.aureus Interp SEE NOTE Random Vancomycin 5.8 L Preliminary micro results at discharge 06/11/22 16:23 Blood Culture - Preliminary Blood - Venous No growth after 24 hours. 06/11/22 16:06 Blood Culture - Preliminary Blood - Venous No growth after 24 hours. Imaging Knee ultrasound: Radiologist's impression: ITS Impressions Knee X-Ray 06/11/22 14:23 IMPRESSION: Marked prepatellar soft tissue swelling and/or prepatellar bursitis. Small knee joint effusion. No fractures. Discharge Plan Discharge Anticipated Discharge Date/Time: 06/13/22 10:39 Patient Disposition: Home, Self-Care Discharge Diagnosis: Right prepatellar bursitis with cellulitis Referrals: eLroy Schneider MD [Primary Care Provider] - 1 Week Discharge Medications: New cefuroxime axetil 500 mg tablet 500 mg PO BID Qty: 14 0RF doxycycline monohydrate 100 mg capsule 100 mg PO BID Qty: 14 0RF Continued lisinopril 20 mg tablet 20 mg PO DAILY 90 Days Qty: 90 8RF multivitamin Capsule 1 cap PO DAILY Discharge Orders: Discharge Order (Routine); Ordered 06/13/22 Ordered By: Verito Younger Diet: Advance to usual diet Activity on Discharge: As tolerated Stand Alone Forms: Patient Portal Discharge page, Work/School Release Care Plan Goals: Read below Health Concerns: Read below Plan of Treatment: Read below Assessment: You were admitted to the hospital for evaluation of right knee pain and swelling. Images were consistent with inflammation of the prepatellar bursa with associated skin infection. Treated with IV antibiotics with good response. Evaluated by orthopedic team who recommended no intervention at this stage. Continue oral doxycycline and Ceftin for 7 more days Apply cold compressors to the knee and use ibuprofen as needed for pain and swelling Avoid kneeling To follow-up with PCP for monitor of the progress Come back to the hospital for any worsening swelling, drainage or fever.
== END 2022-06-13 11:01 | disposition home or self-care (01) | DRG 558 ==
LOC: HO.ED 17:42 → HO.EDOVER 18:04 → HO.S3 23:05
PROVIDERS: Nurse Practitioner Family; Physician Assistant; Admitting Provider Student in an Organized Health Care Education/Training Program; Emergency Provider Emergency Medicine; PCP Internal Medicine; Visit Provider Student in an Organized Health Care Education/Training Program
DX: M70.41 Prepatellar bursitis, right knee (principal); L03.115 Cellulitis of right lower limb; I10 Essential (primary) hypertension; Z20.822 Contact with and (suspected) exposure to COVID-19; Z88.0 Allergy status to penicillin; Z79.899 Other long term (current) drug therapy
CPT/HCPCS: 36415; 73560; 80048; 80053; 80202; 82565; 83605; 84550; 85025; 85027; 85652; 86140; 87040; 87635; 87640; 87641; 99218; 99285; J0690; J0696; J1650; J3370

== ENCOUNTER 2022-07-29 05:54 | Outpatient (REF) | payer OTHER, SELFPAY ==
--- NOTE | ~2022-07-29 | XR_ITS ---
EXAMINATION: XR KNEES, STANDING AP BILATERAL XR KNEE, RIGHT CLINICAL INFORMATION: M25.561 - Pain in right knee COMPARISON: Radiographs right knee 06/11/2022. TECHNIQUE: Bilateral standing AP view of the knees is performed. Axial view of the right patellar is included. FINDINGS: Right: There is moderate narrowing medial knee joint compartment, lesser narrowing lateral compartment. Marginal osteophytes present, greater on lateral side. No erosive change. No patellofemoral joint narrowing or lateralization of the patella. Left: Borderline narrowing medial compartment. No erosive change. XR/XR knee standing BI IMPRESSION: Right: -Moderate narrowing medial knee joint compartment, lesser narrowing lateral compartment. Left: -Borderline narrowing medial compartment.
--- NOTE | ~2022-07-29 | XR_ITS ---
EXAMINATION: XR KNEES, STANDING AP BILATERAL XR KNEE, RIGHT CLINICAL INFORMATION: M25.561 - Pain in right knee COMPARISON: Radiographs right knee 06/11/2022. TECHNIQUE: Bilateral standing AP view of the knees is performed. Axial view of the right patellar is included. FINDINGS: Right: There is moderate narrowing medial knee joint compartment, lesser narrowing lateral compartment. Marginal osteophytes present, greater on lateral side. No erosive change. No patellofemoral joint narrowing or lateralization of the patella. Left: Borderline narrowing medial compartment. No erosive change. XR/XR knee RT 1V IMPRESSION: Right: -Moderate narrowing medial knee joint compartment, lesser narrowing lateral compartment. Left: -Borderline narrowing medial compartment.
== END 2022-07-29 05:55 | disposition home or self-care (01) ==
LOC: HO.HOSX 05:54
PROVIDERS: Visit Provider Physician Assistant
DX: M70.41 Prepatellar bursitis, right knee (principal)
CPT/HCPCS: 73560; 73565

== ENCOUNTER 2022-08-25 12:05 | Outpatient (REF) | payer OTHER, SELFPAY ==
--- NOTE | 2022-08-25 09:00 | EMG_ITS ---
Please see scanned EMG / Nerve Conduction Report. MTDD
== END 2022-08-25 12:06 | disposition home or self-care (01) ==
LOC: HO.NEURO 12:05
PROVIDERS: PCP Internal Medicine; Visit Provider Internal Medicine
DX: G56.03 Carpal tunnel syndrome, bilateral upper limbs (principal)
CPT/HCPCS: 95885; 95913

== ENCOUNTER → 2022-09-14 12:37 | Outpatient (BNVA) | payer OTHER, SELFPAY | PROVIDERS: PCP Internal Medicine; Visit Provider Orthopaedic Surgery | DX: Z13.89 Encounter for screening for other disorder (principal) ==

== ENCOUNTER 2022-12-30 16:19 | Outpatient (REF) | payer OTHER, SELFPAY ==
--- NOTE | ~2022-12-30 | XR_ITS ---
EXAMINATION: XR CERVICAL SPINE CLINICAL INFORMATION: Neck pain COMPARISON: None available. TECHNIQUE: 4 views of the cervical spine were obtained. FINDINGS: Bone alignment is normal. No fracture or dislocation. Degenerative spondylosis at C3-C4 C5-C6 and C6-C7. Disc space narrowing at C5-C6 and C6-C7. Bilateral facet arthritis, left greater than right. Prevertebral soft tissues are normal. XR/XR cervical spine 2V IMPRESSION: Degenerative changes.
== END 2022-12-30 16:20 | disposition home or self-care (01) ==
LOC: HO.XRAY 16:19
PROVIDERS: PCP Internal Medicine; Visit Provider Internal Medicine
DX: M54.2 Cervicalgia (principal)
CPT/HCPCS: 72040

== ENCOUNTER 2023-01-05 14:51 | Outpatient (REF) | payer OTHER, SELFPAY ==
--- NOTE | ~2023-01-05 | US_ITS ---
EXAMINATION: US EXTRACRANIAL CAROTID DUPLEX, BILATERAL CLINICAL INFORMATION: Left facial numbness COMPARISON: None available. TECHNIQUE: Real-time ultrasound and Doppler techniques (integrating B-mode 2-D vascular images, Doppler spectral analysis and color-flow Doppler imaging) were utilized to interrogate the extracranial carotid arteries, the vertebral arteries and proximal subclavian arteries bilaterally. The degree of stenosis is determined by criteria similar to NASCET. FINDINGS: Right Side: 1. There is no atherosclerotic plaque seen in the bifurcation/proximal ICA region. 2. The common carotid artery PSV proximally is 118 cm/s and distally 68 cm/s. 3. The proximal internal carotid artery velocities are 95 cm/s systolic and 27 cm/s diastolic. 4. The proximal external carotid artery PSV is 105 cm/s. 5. The vertebral artery shows antegrade flow. 6. The subclavian artery waveforms are normal. Left Side: 1. There is no atherosclerotic plaque seen in the bifurcation/proximal ICA region. 2. The common carotid artery PSV proximally is 165 cm/s and distally 93 cm/s. 3. The proximal internal carotid artery velocities are 95 cm/s systolic and 25 cm/s diastolic. 4. The proximal external carotid artery PSV is 111 cm/s. 5. The vertebral artery shows antegrade flow. 6. The subclavian artery waveforms are normal. US/US carotid duplex BI IMPRESSION: 1. RIGHT: Normal right internal carotid artery without atherosclerotic plaque or hemodynamically significant stenosis. 2. LEFT: Normal left internal carotid artery without atherosclerotic plaque or hemodynamically significant stenosis.
== END 2023-01-05 14:52 | disposition home or self-care (01) ==
LOC: HO.US 14:51
PROVIDERS: PCP Internal Medicine; Visit Provider Internal Medicine
DX: R20.0 Anesthesia of skin (principal)
CPT/HCPCS: 93880

== ENCOUNTER → 2023-01-11 08:36 | Outpatient (BNVA) | payer OTHER, SELFPAY | PROVIDERS: PCP Internal Medicine; Visit Provider Orthopaedic Surgery ==

== ENCOUNTER → 2023-01-20 15:22 | Outpatient (BNVA) | payer OTHER, SELFPAY | PROVIDERS: PCP Internal Medicine; Visit Provider Physician Assistant ==

== ENCOUNTER 2023-03-28 08:45 | Day surgery (SDC) | payer OTHER, SELFPAY ==
--- NOTE | 2023-03-28 10:08 | W.PM.OPN ---
Operative Note Operative Note Date of Service: 03/28/23 Narrative: Preop diagnosis: 1. right Carpal tunnel syndrome Postop diagnosis: same Procedure: 1. right Carpal tunnel release Surgeon: Rosie Gregorio MD Anesthesia: local block using 1% lidocaine with epinephrine Findings: Thickened transverse carpal ligament. EBL: Less than 5 mL Specimens: None Complications: None Disposition: Brought to recovery room in stable condition Plan: Follow-up for 10-14 days for wound check and suture removal Indications: The patient is 53 years old, with right carpal tunnel syndrome that has been unresponsive to nonoperative management. The risks and benefits of operative treatment including but not limited to risk of damage to blood vessels, nerves, tendons, infection, persistent pain, persistent symptoms, or possible need for additional surgery were discussed with the patient and the patient wishes to proceed with surgery. Procedure: Once consent was obtained a local block was performed using a combination of 1% lidocaine with epinephrine. The patient was then brought back to the operating suite and placed on the operative table in supine position. The right upper extremity was prepped and draped in a standard surgical fashion. Once assured that we had a good block, a 2.0 cm longitudinal incision was made centered over the carpal tunnel. The incision was made through the skin to the subcutaneous tissues using a #15 blade. Dissection was made down to the level of the transverse carpal ligament with care being taken to protect the palmar cutaneous nerve. Once the transverse carpal ligament was clearly visualized, a longitudinal incision was made in the transverse carpal ligament 1st using a #15 blade, then using tenotomy scissors under direct visualization. Care was taken to look for and protect the motor branch of the median nerve when seen in this area. Once satisfied with our carpal tunnel release the wound was copiously irrigated with normal saline and hemostasis was obtained with a brief period of local pressure. The skin edges were reapproximated with some 5.0 nylon suture material and a sterile dressing was applied. The patient appears to have tolerated the procedure well and with no complications. All digits were well vascularized at the conclusion of the case.
[2023-03-28 10:10] VITALS: BMI 30.6
[2023-03-28 10:13] VITALS: BP 183/91; PULSE 60; RESP 16; TEMP 36.5; O2SAT 98
--- NOTE | 2023-03-28 11:04 | MHC.SHP ---
Pre-Procedural Eval Section A Date of Service: 03/28/23 The patient is an INPATIENT: No Changes since office visit: No Cold of Flu in the past 2 weeks, No New Medical Problems, No Changes in Medication and No Patient answered all questions The History & Physical has been completed within 30 days and I have reviewed it.: Yes Section B Chief Complaint: Carpal tunnel syndrome, right upper limb Allergies: Allergies Allergy/AdvReac Type Severity Reaction Status Date / Time amoxicillin Allergy Unknown Unknown Verified 03/28/23 10:09 Plan I have reviewed the history and physical and performed a pertinent physical examination on my patient. No changes have occurred unless specified. Time Spent With Patient Time: Total time managing care of this patient today ____ minutes.
== END 2023-03-28 11:48 | disposition home or self-care (01) ==
PROVIDERS: PCP Internal Medicine; Visit Provider Orthopaedic Surgery
PROC: (CPT 64721; principal; 2023-03-28 09:40)
DX: G56.01 Carpal tunnel syndrome, right upper limb (principal); R20.0 Anesthesia of skin; M25.521 Pain in right elbow; M75.51 Bursitis of right shoulder; I10 Essential (primary) hypertension; Z88.1 Allergy status to other antibiotic agents
CPT/HCPCS: 64721; J0171

== ENCOUNTER → 2023-03-28 08:45 | Outpatient (BNV) | payer OTHER, SELFPAY | PROVIDERS: PCP Internal Medicine; Visit Provider Orthopaedic Surgery | DX: G56.01 Carpal tunnel syndrome, right upper limb (principal) | CPT/HCPCS: 64721 ==

== ENCOUNTER 2023-04-12 14:34 | Outpatient (AMB) | payer OTHER, SELFPAY ==
[2023-04-12 14:56] VITALS: BMI 30.6
--- NOTE | 2023-04-12 14:56 | MHC.OFFVIS ---
Intake Vital Signs 04/12/23 14:56 Height 6 ft Weight 226 lb BMI 30.6 Intake Visit Reasons: PO R CTR 03/24/23 AR Intake Note: Bill 53 yr old male presents today for his p/O visit for his [facility] CTR from 03/24/[address] Gregorio. States numbness has improved. Sutures removed and steri strips applied. Allergies amoxicillin Allergy (Unknown, Verified 04/12/23 14:57) Unknown HPI PO R CTR 03/24/23 AR HPI Details Bill is a 53 year old right hand dominant man who presents S/P right carpal tunnel release, dos: 03/24/23. He says he is doing well and his sensation is now normal. He is happy with the results of his surgery He has left carpal tunnel syndrome and is scheduled for surgery on 04/21/23 [facility] Medical History Bursitis of right shoulder Hypertension Surgical History History of back surgery History of lumbar laminectomy Family History Father CVD (cardiovascular disease) Mother No problems noted. 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 Sutures removed and Steri-Strips applied He can make a fist and extend all his digits Sensation is improved and is now normal in the median nerve distribution. Cap refill is brisk Nerve Conduction Study: IMPRESSION: 1. Bilateral carpal tunnel syndrome mild, worse in the left 2. Normal EMG of left C5-T1 innervated muscles Dr. Valle 08/25/22 Psych Appearance: grossly normal Affect: normal affect Attitude: cooperative Assessment & Plan Assessment & Plan (1) Carpal tunnel syndrome of right wrist: Code(s): G56.01 - Carpal tunnel syndrome, right upper limb (2) Carpal tunnel syndrome of left wrist: Code(s): G56.02 - Carpal tunnel syndrome, left upper limb (3) Bilateral elbow joint pain: Code(s): M25.521 - Pain in right elbow; M25.522 - Pain in left elbow Plan Assessment & Plan: 1. Right Carpal tunnel syndrome, S/P release DOS: 03/24/23 Pre-operative symptoms intermittent, but daily, worse at night or with activity Now with normal sensation and good resolution of his nighttime symptoms The patient appears to be doing well post-operatively I educated him about the post-operative course I discussed activity modifications, he is to lift nothing heavier than a cellphone for the next two weeks He will perform gentle ROM exercises at home He should avoid any underwater activities for the next 5 days He should gently massage about the incision site to reduce the risk of hypersensitivity 2. Left Carpal tunnel syndrome, mild Symptoms intermittent, but daily, worse at night or with activity I educated him about this condition I discussed treatment options I recommend surgery The risks and benefits of operative treatment were discussed with the patient and the patient wishes to proceed with surgery. These risks include, but are not limited to risk of damage to blood vessels, nerves, tendons, infection, recurrence, incomplete relief of preoperative symptoms, persistent pain, possible need for further surgery and the risks associated with regional blocks and anesthesia. The plan is to take the patient to the operating room sometime on 04/21/23 for the following procedures: 1. Left carpal tunnel release, under local All of the preoperative paperwork was was filled out today. We will fill out and have him sign his consent on the day of surgery. All the patient's questions were answered. The patient understands that they will be contacted by our rn surgery icu soon to schedule this procedure He denies Diabetes, blood thinners, asthma, heart, lung, kidney issues 3. Bilateral intermittent elbow pain Medial aspect when elbows held in flexed position or when leaning on medial aspect of elbow Not associated with numbness in the small or ring fingers Ulnar nerve compression not noted on nerve conduction study Etiology unclear We will manage this conservatively for now, I recommend he try to minimize or avoid elbow flexion or leaning onto his elbows Scribed for Rosie Gregorio MD by Sidney Parr, medical terminologist, on 04/12/23 at 2:55 PM EST. Coding Level of Care Code Global (41194) Diagnoses Carpal tunnel syndrome of right wrist G56.01 Carpal tunnel syndrome of left wrist G56.02 Bilateral elbow joint pain M25.521; M25.522
== END 2023-04-12 15:03 | disposition home or self-care (01) ==
PROVIDERS: PCP Internal Medicine; Visit Provider Orthopaedic Surgery
DX: G56.01 Carpal tunnel syndrome, right upper limb (principal); G56.02 Carpal tunnel syndrome, left upper limb; M25.521 Pain in right elbow; M25.522 Pain in left elbow
CPT/HCPCS: 99024

== ENCOUNTER → 2023-04-12 14:34 | Outpatient (BNVA) | payer OTHER, SELFPAY | PROVIDERS: PCP Internal Medicine; Visit Provider Orthopaedic Surgery ==

== ENCOUNTER 2023-04-21 07:25 | Day surgery (SDC) | payer OTHER, SELFPAY ==
[2023-04-21 07:29] VITALS: BMI 30.6
[2023-04-21 07:51] VITALS: BP 157/97; PULSE 64; RESP 16; TEMP 36.8; O2SAT 98
--- NOTE | 2023-04-21 09:47 | MHC.SHP ---
Pre-Procedural Eval Section A Date of Service: 04/21/23 The patient is an INPATIENT: No Changes since office visit: No Cold of Flu in the past 2 weeks, No New Medical Problems, No Changes in Medication and No Patient answered all questions The History & Physical has been completed within 30 days and I have reviewed it.: Yes Section B Chief Complaint: Carpal tunnel syndrome, left upper limb Allergies: Allergies Allergy/AdvReac Type Severity Reaction Status Date / Time amoxicillin Allergy Unknown Unknown Verified 04/12/23 14:57 Plan I have reviewed the history and physical and performed a pertinent physical examination on my patient. No changes have occurred unless specified. Time Spent With Patient Time: Total time managing care of this patient today ____ minutes.
--- NOTE | 2023-04-21 09:47 | W.PM.OPN ---
Operative Note Operative Note Date of Service: 04/21/23 Narrative: Preop diagnosis: 1. left Carpal tunnel syndrome Postop diagnosis: same Procedure: 1. left Carpal tunnel release Surgeon: Rosie Gregorio MD Anesthesia: local block using 1% lidocaine with epinephrine Findings: Thickened transverse carpal ligament. EBL: Less than 5 mL Specimens: None Complications: None Disposition: Brought to recovery room in stable condition Plan: Follow-up for 10-14 days for wound check and suture removal Indications: The patient is 53 years old, with left carpal tunnel syndrome that has been unresponsive to nonoperative management. The risks and benefits of operative treatment including but not limited to risk of damage to blood vessels, nerves, tendons, infection, persistent pain, persistent symptoms, or possible need for additional surgery were discussed with the patient and the patient wishes to proceed with surgery. Procedure: Once consent was obtained a local block was performed using a combination of 1% lidocaine with epinephrine. The patient was then brought back to the operating suite and placed on the operative table in supine position. The left upper extremity was prepped and draped in a standard surgical fashion. Once assured that we had a good block, a 2.0 cm longitudinal incision was made centered over the carpal tunnel. The incision was made through the skin to the subcutaneous tissues using a #15 blade. Dissection was made down to the level of the transverse carpal ligament with care being taken to protect the palmar cutaneous nerve. Once the transverse carpal ligament was clearly visualized, a longitudinal incision was made in the transverse carpal ligament 1st using a #15 blade, then using tenotomy scissors under direct visualization. Care was taken to look for and protect the motor branch of the median nerve when seen in this area. Once satisfied with our carpal tunnel release the wound was copiously irrigated with normal saline and hemostasis was obtained with a brief period of local pressure. The skin edges were reapproximated with some 5.0 nylon suture material and a sterile dressing was applied. The patient appears to have tolerated the procedure well and with no complications. All digits were well vascularized at the conclusion of the case.
[2023-04-21 10:35] VITALS: BP 181/88; PULSE 60; RESP 18; O2SAT 99
== END 2023-04-21 10:36 | disposition home or self-care (01) ==
PROVIDERS: PCP Internal Medicine; Visit Provider Orthopaedic Surgery
PROC: (CPT 64721; principal; 2023-04-21 08:50)
DX: G56.02 Carpal tunnel syndrome, left upper limb (principal); M25.522 Pain in left elbow; I10 Essential (primary) hypertension; Z88.1 Allergy status to other antibiotic agents; Z98.890 Other specified postprocedural states
CPT/HCPCS: 64721; J0171

== ENCOUNTER → 2023-04-21 07:25 | Outpatient (BNV) | payer OTHER, SELFPAY | PROVIDERS: PCP Internal Medicine; Visit Provider Orthopaedic Surgery | DX: G56.02 Carpal tunnel syndrome, left upper limb (principal) | CPT/HCPCS: 64721 ==

== ENCOUNTER 2023-05-03 12:55 | Outpatient (AMB) | payer OTHER, SELFPAY ==
--- NOTE | 2023-05-03 11:29 | A.OFFVIS_ITS ---
Intake Vital Signs 05/03/23 13:27 Height 6 ft Weight 226 lb BMI 30.6 Intake Visit Reasons: PO-Lt CTR 04/21/23 AR Intake Note: Bill 53 yr old male presents today for his P/O visit for his P/O left CTR from 04/21/23. Sutures removed and steri strips applied. States he has no pain just soreness by incision site. Allergies amoxicillin Allergy (Unknown, Verified 05/03/23 13:28) Unknown HPI PO-Lt CTR 04/21/23 AR HPI Details Bill is a 53 year old right hand dominant man who presents S/P left carpal tunnel release, DOS: 04/21/23. He is also S/P right carpal tunnel release, DOS: 03/24/23. He says he is doing well and his sensation is now normal. He is happy with the results of his surgeries. He says he does have some tingling if he hyperextends his fingers, but he had good resolution of his nighttime symptoms. [facility] Medical History Bursitis of right shoulder Hypertension Surgical History History of back surgery History of lumbar laminectomy Family History Father CVD (cardiovascular disease) Mother No problems noted. 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 Sutures removed and Steri-Strips applied He can make a fist and extend all his digits Sensation is improved and is now normal in the median nerve distribution. Cap refill is brisk Nerve Conduction Study: IMPRESSION: 1. Bilateral carpal tunnel syndrome mild, worse in the left 2. Normal EMG of left C5-T1 innervated muscles Dr. Valle 08/25/22 Psych Appearance: grossly normal Affect: normal affect Attitude: cooperative Assessment & Plan Assessment & Plan (1) Carpal tunnel syndrome of right wrist: Code(s): G56.01 - Carpal tunnel syndrome, right upper limb (2) Carpal tunnel syndrome of left wrist: Code(s): G56.02 - Carpal tunnel syndrome, left upper limb (3) Bilateral elbow joint pain: Code(s): M25.521 - Pain in right elbow; M25.522 - Pain in left elbow Plan Assessment & Plan: 1. Left Carpal tunnel syndrome, mild Pre-operative symptoms intermittent, but daily, worse at night or with activity Now with normal sensation and good resolution of his nighttime symptoms The patient appears to be doing well post-operatively I educated him about the post-operative course I explained the signs and symptoms of infection, if the patient develops any new or worsening erythema, drainage, pain, or warmth they should contact the clinic or attend the ED. I discussed activity modifications, he is to lift nothing heavier than a cellphone for the next two weeks He will perform gentle ROM exercises at home He should avoid any underwater activities for the next 5 days He should gently massage about the incision site to reduce the risk of hypersensitivity He was given a note to return to work full duty, on 05/16/23 He can follow up prn 2. Right Carpal tunnel syndrome, S/P release DOS: 03/24/23 Pre-operative symptoms intermittent, but daily, worse at night or with activity Now with normal sensation and good resolution of his nighttime symptoms 3. Bilateral intermittent elbow pain Medial aspect when elbows held in flexed position or when leaning on medial aspect of elbow Not associated with numbness in the small or ring fingers Ulnar nerve compression not noted on nerve conduction study Etiology unclear Did not discuss today Scribed for Rosie Gregorio MD by Sidney Parr, medical office representative, on 05/03/23 at 1:50 PM, EST. Coding Level of Care Code Global (08261) Diagnoses Carpal tunnel syndrome of right wrist G56.01 Carpal tunnel syndrome of left wrist G56.02 Bilateral elbow joint pain M25.521; M25.522
[2023-05-03 13:27] VITALS: BMI 30.6
== END 2023-05-03 13:48 | disposition home or self-care (01) ==
PROVIDERS: PCP Internal Medicine; Visit Provider Orthopaedic Surgery
DX: G56.01 Carpal tunnel syndrome, right upper limb (principal); G56.02 Carpal tunnel syndrome, left upper limb; M25.521 Pain in right elbow; M25.522 Pain in left elbow
CPT/HCPCS: 99024

== ENCOUNTER → 2023-05-03 12:55 | Outpatient (BNVA) | payer OTHER, SELFPAY | PROVIDERS: PCP Internal Medicine; Visit Provider Orthopaedic Surgery ==

== ENCOUNTER 2023-06-16 14:09 | Outpatient (AMB) | payer OTHER, SELFPAY ==
--- NOTE | 2023-06-16 14:13 | A.OFFPC_ITS ---
Vital Signs 06/16/23 14:15 Height 6 ft Weight 238 lb BMI 32.3 BP 140/90 H Blood Pressure Location Lt brachial Position Sitting Pulse 70 Pulse Source Pulse Oximeter Pulse Oximetry (%) 98 Oxygen Delivery Method Room Air Intake Visit Reasons: 4mth f/u Intake Note: Patient is here to follow up on HTN and Carpal tunnel. Data Management Analyst Required: No Combatant Swimmer: Not Required per policy Accompanied by: Self / Same As Patient Allergies amoxicillin Allergy (Unknown, Verified 06/16/23 14:14) Unknown Medication List - Last Reconciled 06/16/23 by Leroy Schneider MD hydrochlorothiazide 25 mg PO DAILY lisinopril 20 mg PO DAILY 90 days multivitamin 1 cap PO DAILY Tobacco use date assessed: 06/16/23 Dental Screening Dental Screen Date: 06/16/23 Did you have a dental visit in the last 12 months?: No Did you have a dental problem in the last 6 months where you did not have access to dental care?: No Was dental information given to patient?: Patient has dentist HPI 4mth f/u HPI Details HTN on Rx; stopped hctz a week ago and bp increased PFSH Medical History Bursitis of right shoulder Hypertension Surgical History (Updated 06/16/23 @ 14:19 by DAMIAN Corley) History of carpal tunnel surgery History of lumbar laminectomy History of back surgery Family History (Updated 06/16/23 @ 14:13 by DAMIAN Corley) Father CVD (cardiovascular disease) Mother No problems noted. 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 Bill Nguyễn, Lazara Escobar, Daniel Quick and colleagues, with an educational jonas from [employer]. Review of Systems Const Denies chills, Denies headache(s) and Denies weight loss ENT Denies headache(s) Card Denies chest pain, Denies syncope, Denies irregular heart rhythm and Denies dyspnea Resp Denies chest congestion, Denies cough and Denies dyspnea GI Denies abdominal pain, Denies change in stool character, Denies nausea and Denies vomiting Musc Denies deformity and Denies joint swelling Neuro Denies syncope and Denies headache(s) Physical exam (Primary Care) Vital Signs: Last Vital Signs Pulse 70 06/16/23 14:15 BP 140/90 H 06/16/23 14:15 Pulse Ox 98 06/16/23 14:15 Oxygen Delivery Method Room Air 06/16/23 14:15 BMI result Body Mass Index 32.3 Tobacco/Smoking Status: Tobacco use Status Tobacco use date assessed 06/16/23 06/16/23 14:20 Patient Tobacco Use Status Never used Tobacco 06/16/23 14:20 Tobacco use type 06/16/23 14:20 e-Cigarette/Vaping Use Never Used 06/16/23 14:20 Thrive Assessment: Date of Thrive Assessment Date Thrive assessed 02/03/23 06/16/23 14:20 Const General: cooperative, comfortable, no acute distress and alert Neck Neck: Yes no lymphadenopathy Thyroid: Thyroid normal Resp Effort & Inspection: normal respiratory effort Auscultation: clear to auscultation bilaterally Percussion: percussion normal Cardio Jugular venous distension: no JVD Palpation: normal PMI Rate: regular rate Rhythm: regular rhythm Heart sounds: S1 normal heart sound present and S2 normal heart sound present GI Inspection: Yes normal to inspection Palpation (GI): No hepatosplenomegaly present Skin General skin exam: no rashes or lesions noted Extrem General: Yes no clubbing, cyanosis or edema Assessment and Plan Assessment & Plan (1) Hypertension: Code(s): I10 - Essential (primary) hypertension Plan: restart rx Medications: Refilled hydrochlorothiazide 25 mg PO DAILY 90 tabs 8RF Coding Level of Care Code Est Pt Level 3 (59120) Diagnoses Hypertension I10
[2023-06-16 14:15] VITALS: BP 140/90; PULSE 70; O2SAT 98; BMI 32.3
== END 2023-06-16 14:26 | disposition home or self-care (01) ==
PROVIDERS: PCP Internal Medicine; Visit Provider Internal Medicine
DX: I10 Essential (primary) hypertension (principal)
CPT/HCPCS: 99213

== ENCOUNTER 2024-09-26 14:24 | Outpatient (AMB) | payer OTHER, SELFPAY ==
[2024-09-26 14:26] VITALS: BP 142/88; PULSE 72; O2SAT 97; BMI 32.4
--- NOTE | 2024-09-26 14:26 | A.OFFPC_ITS ---
Vital Signs 09/26/24 14:26 Height 5 ft 10 in Weight 226 lb BMI 32.4 BP 142/88 H Blood Pressure Location Lt brachial Position Sitting Pulse 72 Pulse Source Pulse Oximeter Pulse Oximetry (%) 97 Oxygen Delivery Method Room Air Intake Visit Reasons: Annual Physical Environmental Engineering Technician Required: No Accompanied by: Self / Same As Patient Allergies amoxicillin Allergy (Unknown, Verified 09/26/24 14:27) Unknown Medication List - Last Reconciled 09/27/24 by Leroy Schneider MD hydrochlorothiazide 25 mg PO DAILY lisinopril 20 mg PO DAILY 90 days multivitamin 1 cap PO DAILY Tobacco use date assessed: 09/26/24 Dental Screening Dental Screen Date: 09/26/24 Did you have a dental visit in the last 12 months?: Yes Did you have a dental problem in the last 6 months where you did not have access to dental care?: No Was dental information given to patient?: Patient has dentist HPI Annual Physical HPI Details HTN on Rx; complianr with meds [facility] Medical History Bursitis of right shoulder Hypertension Surgical History (Updated 06/16/23 @ 14:19 by DAMIAN Corley) History of carpal tunnel surgery History of lumbar laminectomy History of back surgery Family History (Updated 06/16/23 @ 14:13 by DAMIAN Corley) Father CVD (cardiovascular disease) Mother No problems noted. 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 1. Little interest or pleasure in doing things: not at all 2. Feeling down, depressed, or hopeless: not at all 3. Trouble falling or staying asleep, or sleeping too much: nearly every day 4. Feeling tired or having little energy: not at all 5. Poor appetite or overeating: not at all 6. Feeling bad about yourself - or that you are a failure or have let yourself or your family down: not at all 7. Trouble concentrating on things, such as reading the newspaper or watching television: not at all 8. Moving or speaking so slowly that other people could have noticed. Or the opposite - being so fidgety or restless that you have been moving around a lot more than usual: not at all 9. Thoughts that you would be better off or of hurting yourself in some way: not at all Total score: 3 Depression Screening Interpretation: Positive Depression Screening Done: Yes 70107 - PHQ-9 Billing: Yes Source: Developed by Drs. Bill Nguyễn, Lazara Escobar, Daniel Quick and colleagues, with an educational jonas from [employer]. Thrive Questionnaire Date Thrive assessed: 09/26/24 I am a: Patient What is your living situation today?: I have a steady place to live Within the past 12 months, did the food you bought not last and you didn't have the money to get more?: Never true Within the past 12 months, did you worry whether your food would run out before you got money to buy more?: Never true Do you have trouble paying for medicines?: No Do you have trouble getting transportation to medical appointments?: No Do you have trouble paying your heating and electricity bill?: No Do you have trouble taking care of your child, family member or friend?: No Do you have trouble with day-to-day activities such as bathing, preparing meals, shopping, managing finances, etc.?: No Are you currently unemployed and looking for a job?: No Are you interested in more education?: I choose not to answer this question Please select the resources that you would like help with: None Currently or been in a relationship where the following occur: No concerns reported THRIVE Score: 0 AUDIT C Alcohol Use Questionnaire (AUDIT-C) 1. How often do you have a drink containing alcohol?: 2-4 times a month 2. How many drinks containing alcohol do you have on a typical day when you are drinking?: 3 or 4 3. How often do you have six or more drinks on one occasion?: Never Total Score: 3 KATIE-7 AMB Questionnaire KATIE-7 Date KATIE - 7 assessed: 09/26/24 Feeling nervous, anxious, or on edge: 0 = Not at all Not being able to stop or control worryin = Not at all Worrying too much about different things: 0 = Not at all Trouble relaxin = Not at all Being so restless that it is hard to sit still: 0 = Not at all Becoming easily annoyed or irritable: 0 = Not at all Feeling afraid as if something awful might happen: 0 = Not at all Total KATIE-7 score (0-4 normal; 5-9 mild; 10-14 moderate; 15-21 severe): 0 Source: Developed by Drs. Bill Nguyễn, Lazara Escobar, Daniel Quick and colleagues, with an educational jonas from [employer]. KATIE-7 Assessment Billing KATIE-7 Assessment Tool: KATIE-7 Assessment 58604 Review of Systems Const Denies chills, Denies fatigue, Denies headache(s) and Denies weight loss Eyes Denies change in vision, Denies diplopia and Denies eye pain ENT Denies vertigo, Denies dizziness, Denies headache(s) and Denies nasal discharge Card Denies chest pain, Denies rapid heart rate and Denies dyspnea on exertion Resp Denies chest congestion, Denies cough, Denies pain with cough and Denies dyspnea on exertion GI Denies abdominal pain, Denies hematochezia and Denies change in bowel habits Musc Denies myalgias, Denies arthralgias and Denies joint swelling Skin/Breast Denies lesions and Denies unusual bruising Neuro Denies vertigo, Denies dizziness, Denies headache(s) and Denies focal weakness Endo Denies fatigue Physical exam (Primary Care) Vital Signs: Last Vital Signs Pulse 72 09/26/24 14:26 BP 142/88 H 09/26/24 14:26 Pulse Ox 97 09/26/24 14:26 Oxygen Delivery Method Room Air 09/26/24 14:26 BMI result Body Mass Index 32.4 Tobacco/Smoking Status: Tobacco use Status Tobacco use date assessed 09/26/24 09/26/24 14:30 Patient Tobacco Use Status Never used Tobacco 09/26/24 14:30 Tobacco use type Cigarette 09/26/24 14:30 e-Cigarette/Vaping Use Never Used 09/26/24 14:30 PHQ-9: PHQ-9 Score PHQ-9: Total score 3 09/26/24 14:30 Depression Screening Interpretation: Positive Thrive Assessment: Date of Thrive Assessment Date Thrive assessed 09/26/24 09/26/24 14:30 Currently or been in a relationship where the following occur: No concerns reported Const General: cooperative, healthy appearing and no acute distress Orientation/consciousness: oriented to person, oriented to place and oriented to time HENMT Head: Yes normal to inspection, Yes normocephalic and Yes atraumatic Mouth: Normal oral and palatal mucosa present and tongue normal Throat: Yes posterior oropharynx normal and Yes uvula midline Eyes General: appearance normal, both eyes and all related structures Neck Neck: Yes normal visual inspection, Yes full ROM and Yes no lymphadenopathy Thyroid: Thyroid normal Carotids: normal carotid upstroke Chest Chest palpation & inspection: normal inspection of the chest Resp Effort & Inspection: normal respiratory effort and able to speak in complete sentences Auscultation: clear to auscultation bilaterally Cardio Jugular venous distension: no JVD Palpation: normal PMI Rate: regular rate Rhythm: regular rhythm Heart sounds: S1 normal heart sound present and S2 normal heart sound present GI Inspection: Yes normal to inspection Palpation (GI): Soft to palpation and No hepatosplenomegaly present Auscultation: normal bowel sounds General: Yes no CVA tenderness Back/Spine/Pelvis Back: no CVA tenderness Skin General skin exam: no rashes or lesions noted Neuro General: oriented to person, oriented to place and oriented to time Extrem General: Yes normal to inspection and Yes full ROM Coding Level of Care Code Est Pt Prev Care 40-64y(57352) Diagnoses Physical exam Z00.00 Hypertension I10 Additional Codes KATIE-7 Assessment Billing - KATIE-7 Assessment Tool: KATIE-7 Assessment 49004 ([id number]) PHQ-9 - 83689 - PHQ-9 Billing: Yes ([id number]) Assessment & Plan Assessment & Plan (1) Physical exam: Code(s): Z00.00 - Encounter for general adult medical examination without abnormal findings Category: Medical Plan: do labs (2) Hypertension: Code(s): I10 - Essential (primary) hypertension Category: Medical Plan: stable; same rx Medications: Refilled hydrochlorothiazide 25 mg PO DAILY 90 tabs 8RF
--- OUTSIDE RECORDS SUMMARY | 2024-09-26 14:31 | XMS_ITS | Encounter Summary ---
Author Organization [facility] Address [address] [place] [address] Care Team Providers Care Bargain Table Clerk Name Role Phone Leroy Schneider MD Primary Care Provider [phone] Encounter Details Date Type Department Care Team (Late st Contact Info) Description 05/08/2020 Scanned Document [facility] Neurosurgery [place] [address] [facility] [address] [place] [id number] Suresh Sellers MD [address] [facility] [place] [address] [place] [address] Social History Tobacco Use Types Packs/Day Years Used Date Smoking Tobacco: Never Assessed Sex and Gender Information Value Date Recorded Sex Assigned at Not on file Gender Identity Not on file Sexual Orientation Not on file documented as of this encounter Plan of Treatment Not on file documented as of this encounter Visit Diagnoses Not on filedocumented in this encounter Care Teams Bargain Table Clerk Relationship Specialty Start Date End Date Leroy Schneider MD [address] [place] [address] PCP - General 04/02/20 documented as of this encounter
--- OUTSIDE RECORDS SUMMARY | 2024-09-26 14:31 | XMS_ITS | Patient Health Record ---
Author Organization [facility] Address [address] [place] [address] Care Team Providers Care Communications Equipment Supervisor Name Role Phone Leroy Schneider MD Primary Care Provider Wili Navarro Jr Unavailable [phone] ALLERGIES Allergen (clinical drug ingredient) Drug/Non Drug Allergy documented on EMR Reaction Allergy Type Onset Date Status amoxicillin Amoxicillin Unknown Drug Allergy Act miranda REASON FOR REFERRAL No Information MEDICATIONS Medication SIG (Take, Route, Frequency, Duration) Notes Start Date End Date Status MiraLax (colon prep) 8.3 ounce ((238) grams mixed with Gatorade or Crystal Light orally begin at 5:00 p.m. the day before the procedure for 1 day 06/02/2020 Active Multivitamin Active Lisinopril Active Tylenol Active IMMUNIZATIONS Vaccine Route Administration Date Status Comme nts Influenza Unknown 06/02/2020 Refused SOCIAL HISTORY Tobacco Use: Social History Observation Description Date Details (start date - stop date) Never Smoker NA - NA Sex Assigned At : Social History Observation Description Sex Assigned At Unknown Tobacco Use/Smoking Question Answer Notes Patient is a nonsmoker Alcohol Screen Question Answer Notes Did you have a drink contain ing alcohol in the past year? Yes How often did you have a dri nk containing alcohol in the past year? 2 to 4 times a month (2 points) How many drinks did you have on a typical day when you were drinking in the past year? 1 or 2 drinks (0 point) How often did you have 6 or more drinks on one occasion in the past year? Never (0 point) Points 2 Interpretation Negative PROBLEMS Problem Type ICD Code Onset Dates Problem Status W/U Status Risk SNOMED Code Notes Problem Colon cancer screening (Z12.11) Active confirmed 986403389 Problem Encounter for other preprocedural examination (Z01.818) Active confirmed [id number] PLAN OF TREATMENT Future Test Test Name Order Date COLONOSCOPY 06/02/2020 Insurance Providers Payer Name Payer Address Payer Phone Subscriber Number Group Number Insured Name Patient Relationship to Insured Coverage Start Date Coverage End Date [facility] [address] [place], [place] [id number] MANAS SIMENTAL Self - patient is the insured MEDICAL (GENERAL) HISTORY Medical History History ICD Code hypertension Surgical History Surgery Date(Month/Year) back surgery - lower 2003, 2017
--- OUTSIDE RECORDS SUMMARY | 2024-09-26 14:31 | XMS_ITS | Clinical Summary ---
Author Organization [facility] Address [address] [place] [address] Care Team Providers Care Instrument Specialist Name Role Phone Leroy Schneider MD Primary Care Provider [phone] Social History Tobacco Use Types Packs/Day Years Used Date Smoking Tobacco: Never Assessed Sex and Gender Information Value Date Recorded Sex Assigned at Not on file Gender Identity Not on file Sexual Orientation Not on file Plan of Treatment Health Maintenance Due Date Last Done Comments Hepatitis C Virus Screening 1970 HIV Screening 1983 DTaP/Tdap/Td Vaccines (1 - Tdap) 1989 Hepatitis B Vaccines (1 of 3 - 19+ 3-dose series) 1989 Colonoscopy 2015 Pneumococcal Vaccines 50+ (1 of 1 - PCV) 01/28/2020 Zoster (Shingles) Vaccine (1 of 2) 01/28/2020 Influenza Vaccine 03/08/2024 COVID-19 Vaccine (1 - 2023-2 5 season) 2024 Pneumococcal Vaccine: Pediat eleazar (0-5 Years) and At-Risk Patients (6 to 49 Years) Aged Out No longer eligible b ased on patient's age to complete this topic Care Teams Instrument Specialist Relationship Specialty Start Date End Date Leroy Schneider MD [address] [place] [address] PCP - General 04/02/20
== END 2024-09-26 15:00 | disposition home or self-care (01) ==
PROVIDERS: PCP Internal Medicine; Visit Provider Internal Medicine
DX: Z00.00 Encounter for general adult medical examination without abnormal findings (principal); I10 Essential (primary) hypertension

== ENCOUNTER → 2024-09-26 14:24 | Outpatient (BNVA) | payer OTHER, SELFPAY | PROVIDERS: PCP Internal Medicine; Visit Provider Internal Medicine | DX: Z00.00 Encounter for general adult medical examination without abnormal findings (principal); I10 Essential (primary) hypertension; Z79.899 Other long term (current) drug therapy | CPT/HCPCS: 96127 ==

== ENCOUNTER 2024-10-02 06:17 | Outpatient (REF) | payer OTHER, SELFPAY ==
--- OUTSIDE RECORDS SUMMARY | 2024-10-02 06:20 | XMS_ITS | Patient Health Record ---
Author Organization [facility] Address [address] [place] [address] Care Team Providers Care Information Security Systems Instructor Name Role Phone Leroy Schneider MD Primary Care Provider Wili Navarro Jr Unavailable [phone] ALLERGIES Allergen (clinical drug ingredient) Drug/Non Drug [...] Problem Colon cancer screening (Z12.11) Active confirmed [id number] Problem Encounter for other preprocedural examination (Z01.818) Active confirmed [id number] PLAN OF TREATMENT Future Test Test Name Order Date COLONOSCOPY 06/02/2020 Insurance Providers Payer Name Payer Address Payer Phone Subscriber Number Group Number Insured Name Patient Relationship to Insured Coverage Start Date Coverage End Date [facility] [address] [place], [place] [id number] MANAS [employer]ENTAL Self - patient is the insured MEDICAL (GENERAL) HISTORY Medical History History ICD Code hypertension Surgical History Surgery Date(Month/Year) back surgery - lower 2003, 2017
--- OUTSIDE RECORDS SUMMARY | 2024-10-02 06:20 | XMS_ITS | Clinical Summary ---
Author Organization [facility] Address [address] [place] [address] Care Team Providers Care Veterinary Medicine Teacher Name Role Phone Leroy Schneider MD Primary Care Provider [phone] Social History Tobacco Use Types Packs/Day Years [...] age to complete this topic Care Teams Veterinary Medicine Teacher Relationship Specialty Start Date End Date Leroy Schneider MD [address] [place] [address] PCP - General 04/02/20
--- OUTSIDE RECORDS SUMMARY | 2024-10-02 06:20 | XMS_ITS | Encounter Summary ---
Author Organization [facility] Address [address] [place] [address] Care Team Providers Care Boat Repairer Name Role Phone Leroy Schneider MD Primary Care Provider [phone] Encounter Details Date Type Department Care Team (Late st Contact Info) Description 05/08/2020 Scanned Document [facility] Neurosurgery [place] [address] [facility] [address] [place] [phone] Suresh Sellers MD [address] [facility] [place] [address] [place] [address] Social History Tobacco Use Types Packs/Day Years Used Date Smoking Tobacco: Never Assessed Sex and Gender Information Value Date Recorded Sex Assigned at Not on file Gender Identity Not on file Sexual Orientation Not on file documented as of this encounter Plan of Treatment Not on file documented as of this encounter Visit Diagnoses Not on filedocumented in this encounter Care Teams Boat Repairer Relationship Specialty Start Date End Date Leroy Schneider MD [address] [place] [address] PCP - General 04/02/20 documented as of this encounter
[2024-10-02 06:32] LABS: MANUAL DIFF FLAG NO
[2024-10-02 07:31] LABS: Basophils Absolute Auto 0.1 X10*3/uL (0.0-0.2); Basophils Percent Auto 1.2 % (0-2); Eosinophils Absolute Auto 0.2 X10*3/uL (0.0-0.4); Eosinophils Percent Auto 4.1 % (0-4); Hematocrit 42.7 % (42.0-52.0); Hemoglobin 14.6 g/dl (14.0-18.0); Imm Gran Abs Auto 0.02 X10*3/uL (0.00-0.03); Imm Gran Pct Auto 0.4 % (0.0-0.4); Lymphocytes Absolute Auto 1.7 X10*3/uL (1.2-4.9); Lymphocytes Percent Auto 33.7 % (20-40); Mean Corpuscular HGB Conc 34.2 g/dl (31.0-36.0); Mean Corpuscular Hemoglobin 28.4 pg (27.0-33.0); Mean Corpuscular Volume 83.1 fL (80.0-98.0); Mean Platelet Volume 10.3 fL (9.4-12.4); Monocytes Absolute Auto 0.5 X10*3/uL (0.1-1.2); Monocytes Percent Auto 8.7 % (2-11); Neutrophils Absolute Auto 2.7 x10*3/uL (2.0-8.3); Neutrophils Percent Auto 51.9 % (45-73); Platelet Count 268 X10*3/uL (160-400); Red Blood Count 5.14 X10*6/uL (4.60-5.80); Red Cell Distribution Width 12.2 % (11.0-16.0); White Blood Count 5.2 X10*3/uL (4.8-10.8)
[2024-10-02 08:39] LABS: Alanine Aminotransferase 41 U/L (0-40); Albumin Level 4.2 g/dL (3.5-5.0); Alkaline Phosphatase 53 U/L (39-117); Anion Gap 11 (12-20); Aspartate Amino Transferase 29 U/L (5-37); Bilirubin Total 0.5 mg/dL (0.0-1.0); Blood Urea Nitrogen 18 mg/dL (9-16); Calcium 9.2 mg/dL (8.4-10.2); Carbon Dioxide 25 mmol/L (22-29); Chloride 107 mmol/L (96-108); Cholesterol 222 mg/dL (<200); Estimated Glomerular Filt Rate > 60; Glucose Fasting 126 mg/dL (60-99); HDL Cholesterol 42 mg/dL (>40); LDL Cholesterol Calculated 153 mg/dL (<100); Potassium 4.2 mmol/L (3.3-5.1); Sodium 139 mmol/L (135-145); Total Protein 7.7 g/dL (6.5-8.0); Triglycerides 138 mg/dL (<150)
[2024-10-02 08:57] LABS: Thyroid Stimulating Hormone 2.75 uIU/mL (0.32-4.0)
== END 2024-10-02 06:18 | disposition home or self-care (01) ==
LOC: HO.LAB 06:17
PROVIDERS: PCP Internal Medicine; Visit Provider Internal Medicine
DX: Z13.29 Encounter for screening for other suspected endocrine disorder (principal); Z13.220 Encounter for screening for lipoid disorders; Z13.9 Encounter for screening, unspecified; Z13.0 Encounter for screening for diseases of the blood and blood-forming organs and certain disorders involving the immune mechanism
CPT/HCPCS: 36415; 80053; 80061; 84443; 85025

== ENCOUNTER 2025-01-17 15:13 | Outpatient (AMB) | payer OTHER, SELFPAY ==
[2025-01-17 15:17] VITALS: BP 126/86; PULSE 75; RESP 18; TEMP 37; O2SAT 96; BMI 32.4
--- NOTE | 2025-01-17 15:17 | A.OFFPC_ITS ---
Vital Signs 01/17/25 15:17 Height 5 ft 10 in Weight 226 lb BMI 32.4 BP 126/86 Blood Pressure Location Lt brachial Position Sitting Respiration 18 Pulse 75 Pulse Source Pulse Oximeter Temp 98.6 F Temp Source Oral Pulse Oximetry (%) 96 Oxygen Delivery Method Room Air Intake Visit Reasons: chest and neck pain and knee pain [employer] Required: No Accompanied by: Self / Same As Patient Allergies amoxicillin Allergy (Unknown, Verified 02/03/25 13:35) Hives Medication List - Last Reconciled 01/17/25 by HALEIGH Guerrero hydrochlorothiazide 25 mg PO DAILY lisinopril 20 mg PO DAILY 90 days metronidazole 1% (Metrogel) 1 appl topical BID PRN multivitamin 1 cap PO DAILY Tobacco use date assessed: 01/17/25 Dental Screening Dental Screen Date: 01/17/25 Did you have a dental visit in the last 12 months?: Yes Did you have a dental problem in the last 6 months where you did not have access to dental care?: No Was dental information given to patient?: Patient has dentist HPI chest and neck pain and knee pain HPI Details The patient is a 54-year-old male presenting with concerns of chronic musculoskeletal and new chest pain. He reports ongoing bilateral shoulder pain that significantly reduces the quality of his sleep. This condition keeps him tossing and turning due to the discomfort experienced while sleeping on his side. Additionally, he notes neck pain with a significant reduction in lateral range of motion, pointing to possible degenerative disc disease. This chronic pain in the neck area potentially affects his shoulders, causing further discomfort at night. Additionally, he has a history of lumbar radiculopathy with resulting left foot drop following two back surgeries, for which he wears a leg brace. In recent weeks, the patient noticed an escalation in his right knee pain. It has developed into a persistent and moderate intensity pain which does not fluctuate substantially through different states of rest or activity but does hinder movement when transitioning from kneeling. Prior imaging indicated osteoarthritic degeneration, which aligns with his current symptoms. Approximately one week ago, he started experiencing chest pain that radiates across his rib cage, predominately during the day, corresponding possibly to musculoskeletal strain from his posture in using electronic devices at work. He denies any history of significant exertion or respiratory symptoms accompanying this pain. The patient requested if he could take one blood pressure medication instead of 2. Will order the combination medication for the patient. Explained to the patient that I will put his other two medications on hold, so they could be reinstated if his insurance does not cover the lisinopril-hydrochlorthizide 20- 25mg. [facility] Medical History Bursitis of right shoulder Hypertension Surgical History History of carpal tunnel surgery History of lumbar laminectomy History of back surgery Family History Father CVD (cardiovascular disease) Mother No problems noted. 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 Cognitive needs: No Hearing needs: No Vision needs: No Questionnaire Thrive Questionnaire Date Thrive assessed: 09/26/24 I am a: Patient What is your living situation today?: I have a steady place to live Within the past 12 months, did the food you bought not last and you didn't have the money to get more?: Never true Within the past 12 months, did you worry whether your food would run out before you got money to buy more?: Never true Do you have trouble paying for medicines?: No Do you have trouble getting transportation to medical appointments?: No Do you have trouble paying your heating and electricity bill?: No Do you have trouble taking care of your child, family member or friend?: No Do you have trouble with day-to-day activities such as bathing, preparing meals, shopping, managing finances, etc.?: No Are you currently unemployed and looking for a job?: No Are you interested in more education?: I choose not to answer this question Please select the resources that you would like help with: None Currently or been in a relationship where the following occur: No concerns reported THRIVE Score: 0 AUDIT C Alcohol Use Questionnaire (AUDIT-C) 1. How often do you have a drink containing alcohol?: 2-4 times a month 2. How many drinks containing alcohol do you have on a typical day when you are drinking?: 3 or 4 3. How often do you have six or more drinks on one occasion?: Never Total Score: 3 Score Reviewed/Action Taken: No KATIE-7 AMB Questionnaire KATIE-7 Date KATIE - 7 assessed: 09/26/24 Source: Developed by Drs. Bill Nguyễn, Lazara Escobar, Daniel Quick and colleagues, with an educational jonas from [employer]. Review of Systems Const Details: - Musculoskeletal: Reports shoulder and neck pain with reduced range of motion; right knee pain; denies left knee pain. History of lumbar radiculopathy. - Cardiovascular: Reports chest pain; denies shortness of breath or exertional pain. - Gastrointestinal: Denies any exertional correlations with chest pain. - Neurological: Denies any significant symptoms with the use of electronic devices other than discomfort due to posture. - General: Requests follow-up on blood work outcomes to assess liver enzyme levels. Denies headache(s) Eyes Denies loss of vision ENT Denies vertigo, Denies dizziness, Denies headache(s), Reports neck pain and Denies sore throat Card Reports chest pain (reports chest pain, but pointed to ribcage), Denies leg edema and Denies lightheadedness Resp Denies cough, Denies hemoptysis and Denies wheezing GI Denies abdominal pain, Denies melena, Denies constipation, Denies diarrhea and Denies vomiting Denies dysuria, Denies urinary frequency and Denies urinary urgency Musc Reports arthralgias (right knee pain), Denies joint swelling, Reports neck pain, Denies numbness and Denies tingling Neuro Denies Abnormal speech present, Denies vertigo, Denies dizziness, Denies headache(s), Denies loss of vision, Denies memory loss, Denies numbness and Denies tingling Psych Denies anxiety, Denies depression, Denies memory loss and Denies panic attacks Kimani/Lymph Denies easy bleeding and Denies easy bruising Aller/Immun Denies wheezing Physical exam (Primary Care) Vital Signs: Last Vital Signs Temp 98.6 F 01/17/25 15:17 Pulse 75 01/17/25 15:17 Resp 18 01/17/25 15:17 BP 126/86 01/17/25 15:17 Pulse Ox 96 01/17/25 15:17 Oxygen Delivery Method Room Air 01/17/25 15:17 BMI result Body Mass Index 32.4 Tobacco/Smoking Status: Tobacco use Status Tobacco use date assessed 01/17/25 01/17/25 15:27 Patient Tobacco Use Status Never used Tobacco 01/17/25 15:27 Tobacco use type Cigarette 01/17/25 15:27 e-Cigarette/Vaping Use Never Used 01/17/25 15:27 Thrive Assessment: Date of Thrive Assessment Date Thrive assessed 09/26/24 01/17/25 15:27 Currently or been in a relationship where the following occur: No concerns reported Const General: healthy appearing, no acute distress, alert and awake Nutritional Appearance: well nourished Orientation/consciousness: oriented to person, oriented to place and oriented to time HENMT Ears: external ears normal General nose exam: Normal external nose present Eyes Conjunctivae: conjunctivae normal Sclerae: sclerae normal Pupils: Equal, round and reactive pupils present Neck Neck: Yes no lymphadenopathy and Yes no JVD Thyroid: Thyroid normal Carotids: no bruits Resp Effort & Inspection: normal respiratory effort and not tachypneic Auscultation: no crackles, no rales, no rhonchi and no wheezes Cardio Rate: regular rate Rhythm: regular rhythm Heart sounds: no murmurs and normal S1 and S2 GI Palpation (GI): Soft to palpation, nontender, no hepatomegaly and no splenomegaly Auscultation: normal bowel sounds Back/Spine/Pelvis Cervical Spine: pain with cervical ROM (with hyperflexion of the neck) and No Cervical spine tenderness Thoracic/Lumbar Spine: No thoracic spinal tenderness and No lumbar spinal tenderness Skin General skin exam: no rashes or lesions noted and dry skin Neuro General: oriented to person, oriented to place and oriented to time Cranial nerves: Yes Equal, round and reactive pupils present Speech: No Abnormal speech present Gait exam (Neuro): Normal gait present Extrem Right upper extremity: full ROM and shoulder/upper arm Details: no tenderness and no swelling Left upper extremity: full ROM and shoulder/upper arm Details: no tenderness and no swelling Right lower extremity: full ROM and knee Details: no tenderness and no swelling; no edema Left lower extremity: full ROM; no edema Psych Mental Status: mental status grossly normal Speech and movement: Normal speech and movement present Affect: normal affect Attitude: cooperative Thought process: Normal thought process present Coding Level of Care Code Est Pt Level 3 (38490) Diagnoses Arthralgia of knee, right M25.561 Cervical pain M54.2 Chronic pain of both shoulders M25.511; M25.512; G89.29 Chronicity: chronic Chest pain, unspecified type R07.9 Chest pain type: unspecified Time Spent (min) 33 Assessment & Plan Assessment & Plan (1) Arthralgia of knee, right: Code(s): M25.561 - Pain in right knee Category: Medical Plan: Patient has a history of arthritis. Right knee x-ray on 07/29/2022 showed moderate medial right joint compartment, lesser narrowing lateral compartment. Marginal osteophytes. Right knee x-ray ordered to evaluate if this worsen and advise (2) Cervical pain: Code(s): M54.2 - Cervicalgia Category: Medical Plan: Cervical x-ray 12/30/2022 Showed degenerative spondylosis at multilevel We will re-evaluate this with a follow up cervical x-ray and advise (3) Bilateral shoulder pain: Code(s): M25.511 - Pain in right shoulder; M25.512 - Pain in left shoulder Category: Medical Qualifiers: Chronicity: chronic Qualified Code(s): M25.511 - Pain in right shoulder; M25.512 - Pain in left shoulder; G89.29 - Other chronic pain Plan: Reports bilateral shoulder pain possible degenerative changes giving history Bilateral shoulder x-ray ordered to evaluate and advise (4) Chest pain: Code(s): R07.9 - Chest pain, unspecified Category: Medical Qualifiers: Chest pain type: unspecified Qualified Code(s): R07.9 - Chest pain, unspecified Plan: not heart related patient is pointing point at his ribcage possible costocondritis-will have him start meloxicam and reorder his cyclobenzaprine 10mg PRN at bedtime follow up pain worsens or not resolving he is aware of the s/sx to go to the ER for evaluation Orders: Orders XR cervical spine 3V 01/22/25 M54.2 - Cervicalgia XR Shoulder Jose min 2V 01/22/25 M25.511 - Pain in right shoulder, M25.512 - Pain in left shoulder XR knee RT 3V 01/22/25 M25.561 - Pain in right knee Uric Acid 01/23/25 M25.50 - Pain in unspecified joint, M25.561 - Pain in right knee, M25.511 - Pain in right shoulder, M25.512 - Pain in left shoulder, M54.2 - Cervicalgia, I10 - Essential (primary) hypertension, E78.5 - Hyperlipidemia, unspecified, R73.01 - Impaired fasting glucose, R74.01 - Elevation of levels of liver transaminase levels Comprehensive [place]. Panel Fast 01/23/25 M25.561 - Pain in right knee, M25.511 - Pain in right shoulder, M25.512 - Pain in left shoulder, M54.2 - Cervicalgia, I10 - Essential (primary) hypertension, E78.5 - Hyperlipidemia, unspecified, R73.01 - Impaired fasting glucose, R74.01 - Elevation of levels of liver transaminase levels TSH reflex Free T4 01/23/25 M25.561 - Pain in right knee, M25.511 - Pain in right shoulder, M25.512 - Pain in left shoulder, M54.2 - Cervicalgia, I10 - Essential (primary) hypertension, E78.5 - Hyperlipidemia, unspecified, R73.01 - Impaired fasting glucose, R74.01 - Elevation of levels of liver transaminase levels UA CC w/rflx Micro + Cult 01/23/25 M25.561 - Pain in right knee, M25.511 - Pain in right shoulder, M25.512 - Pain in left shoulder, M54.2 - Cervicalgia, I10 - Essential (primary) hypertension, E78.5 - Hyperlipidemia, unspecified, R73.01 - Impaired fasting glucose, R74.01 - Elevation of levels of liver transaminase levels Vitamin D 25-OH Total 01/23/25 M25.561 - Pain in right knee, M25.511 - Pain in right shoulder, M25.512 - Pain in left shoulder, M54.2 - Cervicalgia, I10 - Essential (primary) hypertension, E78.5 - Hyperlipidemia, unspecified, R73.01 - Impaired fasting glucose, R74.01 - Elevation of levels of liver transaminase levels Complete Blood Count Auto Diff 01/23/25 M25.561 - Pain in right knee, M25.511 - Pain in right shoulder, M25.512 - Pain in left shoulder, M54.2 - Cervicalgia, I10 - Essential (primary) hypertension, E78.5 - Hyperlipidemia, unspecified, R73.01 - Impaired fasting glucose, R74.01 - Elevation of levels of liver transaminase levels Lipid Panel 01/23/25 M25.561 - Pain in right knee, M25.511 - Pain in right shoulder, M25.512 - Pain in left shoulder, M54.2 - Cervicalgia, I10 - Essential (primary) hypertension, E78.5 - Hyperlipidemia, unspecified, R73.01 - Impaired fasting glucose, R74.01 - Elevation of levels of liver transaminase levels Hemoglobin A1c 01/23/25 M25.561 - Pain in right knee, M25.511 - Pain in right shoulder, M25.512 - Pain in left shoulder, M54.2 - Cervicalgia, I10 - Essential (primary) hypertension, E78.5 - Hyperlipidemia, unspecified, R73.01 - Impaired fasting glucose, R74.01 - Elevation of levels of liver transaminase levels Medications: New cyclobenzaprine 10 mg PO BEDTIME PRN 30 tabs 3RF muscle spasm meloxicam 15 mg PO DAILY PRN 30 tabs 0RF pain lisinopril-hydrochlorothiazide 20-25 mg 1 tab PO DAILY 90 tabs 3RF On Hold 2 lisinopril Hold Comment: Doctor's Order 20 mg PO DAILY 90 days 90 tabs 8RF hydrochlorothiazide Hold Comment: Doctor's Order 25 mg PO DAILY 90 tabs 8RF
--- OUTSIDE RECORDS SUMMARY | 2025-01-17 17:52 | XMS_ITS | Patient Health Record ---
Author Organization [facility] Address [address] [place] [address] Care Team Providers Care Junior Technical Writer Name Role Phone Leroy Schneider MD Primary Care Provider Wili Navarro Jr Unavailable Allergies Allergen (clinical drug ingredient) Drug/Non Drug Allergy documented on EMR Reaction Allergy Type Onset Date Status amoxicillin Amoxicillin Unknown Drug Allergy Act miranda Reason For Referral No Information Medications Medication SIG (Take, Route, Frequency, Duration) Notes Start Date End Date Status MiraLax (colon prep) 8.3 ounce ((238) grams mixed with Gatorade or Crystal Light orally begin at 5:00 p.m. the day before the procedure for 1 day 06/02/2020 Active Multivitamin Active Lisinopril Active Tylenol Active Immunizations Vaccine Route Administration Date Status Comme nts Influenza Unknown 06/02/2020 Refused Social History Tobacco Use: Social History Observation Description Date Details (start date - stop date) Never Smoker NA - NA Tobacco Use/Smoking Question Answer Notes Patient is [...] Never (0 point) Points 2 Interpretation Negative Problems Problem Type SNOMED Code ICD Code Onset Dates Problem Status W/U Status Risk Notes Problem [id number] Colon cancer screening (Z12.11) Active confirmed Problem [id number] Encounter for other preprocedural examination (Z01.818) Active confirmed Plan Of Treatment Future Test Test Name Order Date COLONOSCOPY 06/02/2020 Insurance Providers Payer Name Payer Address Payer Phone Subscriber Number Group Number Insured Name Patient Relationship to Insured Coverage Start Date Coverage End Date [facility] [address] [place], [place] [id number] MANAS SIMENTAL Self - patient is the insured Medical (General) History Medical History History ICD Code hypertension Surgical History Surgery Date(Month/Year) back surgery - lower 2003, 2017
== END 2025-01-17 16:22 | disposition home or self-care (01) ==
DX: M25.561 Pain in right knee (principal); M54.2 Cervicalgia; M25.511 Pain in right shoulder; M25.512 Pain in left shoulder; G89.29 Other chronic pain; R07.9 Chest pain, unspecified

== ENCOUNTER → 2025-01-17 15:13 | Outpatient (BNVA) | payer OTHER, SELFPAY | PROVIDERS: PCP Internal Medicine | DX: Z13.89 Encounter for screening for other disorder (principal) ==

== ENCOUNTER 2025-01-22 06:38 | Outpatient (REF) | payer OTHER, SELFPAY ==
--- NOTE | ~2025-01-22 | XR_ITS ---
EXAMINATION: XR CERVICAL SPINE CLINICAL INFORMATION: M54.2 - Cervicalgia COMPARISON: None available. TECHNIQUE: 4 views of cervical spine are noted. FINDINGS: There is mild straightening of cervical lordosis. Loss of C5-C6, C6-C7 disc heights with ventral spondylosis is noted. Rest the disc heights are normal. The craniovertebral junction and C1-C2 alignment is normal. No visible acute fracture or dislocation seen. Mild bilateral C3-4, C4-5 facet joint arthropathy is noted The prevertebral and paravertebral soft tissues are normal. XR/XR cervical spine 3V IMPRESSION: Degenerative disc changes with ventral spondylosis C5-6 and C6-C7 disc levels. No visible acute fracture, dislocation or subluxation seen. Electronically signed by: Karl Diaz MD 01/22/2025 07:22 AM EDT
--- NOTE | ~2025-01-22 | XR_ITS ---
EXAMINATION: Bilateral shoulders 4 views each. CLINICAL INDICATION: Pain in right shoulder. COMPARISON: Left shoulder 05/07/2011 FINDINGS: LEFT SHOULDER: There is mild loss of AC joint. The glenohumeral joint space is normal. No visible acute fracture, dislocation or subluxation seen. The soft tissues are normal. RIGHT SHOULDER: There is mild loss of right AC joint. The glenohumeral joint space is preserved. No visible acute fracture, dislocation or subluxation seen. Mild hypertrophic bony spurring is seen along the lateral coracoid process XR/XR Shoulder Jose min 2V IMPRESSION: Mild arthritic changes bilateral AC joint. No visible acute fracture, dislocation or subluxation seen.. Electronically signed by: Karl Diaz MD 01/22/2025 07:19 AM EDT
--- NOTE | ~2025-01-22 | XR_ITS ---
CLINICAL HISTORY: M25.561 - Pain in right knee 3 view right knee Comparison: None Findings: Bones intact. No dislocations. Osteoarthritic changes are noted particularly related to the lateral compartment where marginal osteophytes are present. No joint effusion. No radiopaque foreign body. There is localized soft tissue swelling related to the patellar tendon. IMPRESSION: 1. There is localized soft tissue swelling related to the patellar tendon. 2. Osteoarthritic changes are noted particularly related to the lateral compartment where marginal osteophytes are present. This document has been electronically signed by: Foster Wallace MD on 01/22/2025 07:36:09
--- OUTSIDE RECORDS SUMMARY | 2025-01-22 06:41 | XMS_ITS | Patient Health Record ---
Author Organization [facility] Address [address] [place] [address] Care Team Providers Care Rent Control Office Manager Name Role Phone Leroy Schneider MD Primary [...] Problem Status W/U Status Risk Notes Problem [id number] Colon cancer screening (Z12.11) Active confirmed Problem [id number] Encounter for other preprocedural examination (Z01.818) Active confirmed Plan Of Treatment Future Test Test Name Order Date COLONOSCOPY 06/02/2020 Insurance Providers Payer Name Payer Address Payer Phone Subscriber Number Group Number Insured Name Patient Relationship to Insured Coverage Start Date Coverage End Date [facility] [address] [place], [place] [phone] [id number] MANAS SIMENTAL Self - patient is the insured Medical (General) History Medical History History ICD Code hypertension Surgical History Surgery Date(Month/Year) back surgery - lower 2003, 2017
== END 2025-01-22 06:39 | disposition home or self-care (01) ==
LOC: HO.LAB 06:38
DX: M25.511 Pain in right shoulder (principal); M25.512 Pain in left shoulder; M54.2 Cervicalgia; M25.561 Pain in right knee
CPT/HCPCS: 72040; 73030; 73562

== ENCOUNTER → 2025-01-22 06:42 | Outpatient (BNV) | payer OTHER, SELFPAY | PROVIDERS: Visit Provider Radiology Diagnostic Radiology | DX: M47.812 Spondylosis without myelopathy or radiculopathy, cervical region (principal); M50.322 Other cervical disc degeneration at C5-C6 level; M50.323 Other cervical disc degeneration at C6-C7 level; M25.511 Pain in right shoulder; M25.512 Pain in left shoulder; M17.11 Unilateral primary osteoarthritis, right knee; M79.89 Other specified soft tissue disorders | CPT/HCPCS: 72040; 73030; 73562 ==

== ENCOUNTER 2025-01-23 06:18 | Outpatient (REF) | payer OTHER, SELFPAY ==
[2025-01-23 06:42] LABS: MANUAL DIFF FLAG NO
[2025-01-23 07:14] LABS: Basophils Absolute Auto 0.1 X10*3/uL (0.0-0.2); Basophils Percent Auto 1.1 % (0-2); Eosinophils Absolute Auto 0.3 X10*3/uL (0.0-0.4); Hematocrit 41.2 % (42.0-52.0); Imm Gran Abs Auto 0.01 X10*3/uL (0.00-0.03); Imm Gran Pct Auto 0.2 % (0.0-0.4); Lymphocytes Absolute Auto 1.4 X10*3/uL (1.2-4.9); Lymphocytes Percent Auto 30.3 % (20-40); Mean Corpuscular Hemoglobin 28.6 pg (27.0-33.0); Mean Corpuscular Volume 84.3 fL (80.0-98.0); Monocytes Absolute Auto 0.5 X10*3/uL (0.1-1.2); Neutrophils Absolute Auto 2.4 x10*3/uL (2.0-8.3); Neutrophils Percent Auto 51.4 % (45-73); Platelet Count 231 X10*3/uL (160-400); Red Blood Count 4.89 X10*6/uL (4.60-5.80); Red Cell Distribution Width 12.8 % (11.0-16.0); White Blood Count 4.7 X10*3/uL (4.8-10.8)
[2025-01-23 07:21] LABS: Estimated Average Glucose 137 mg/dL; Hemoglobin A1c % 6.4 % (<6.0); Total Hemoglobin (HGBA1C) 3617.0002 umol/L
[2025-01-23 07:39] LABS: Appearance Urine Clear; Color Urine Yellow; Glucose Urine UA Negative (Negative); Leukocyte Esterase Urine Negative (Negative); Nitrite Urine Negative (Negative); PH 6.5 (5.0-9.0); Urine Blood Negative (Negative); Urine Ketones Trace mg/dL (Negative); Urine Protein Negative (Neg-Trace)
[2025-01-23 07:42] LABS: Alanine Aminotransferase 34 U/L (0-40); Albumin Level 4.3 g/dL (3.5-5.0); Alkaline Phosphatase 48 U/L (39-117); Anion Gap 12 (12-20); Aspartate Amino Transferase 31 U/L (5-37); Bilirubin Total 0.3 mg/dL (0.0-1.0); Blood Urea Nitrogen 20 mg/dL (9-16); Calcium 9.1 mg/dL (8.4-10.2); Carbon Dioxide 26 mmol/L (22-29); Chloride 106 mmol/L (96-108); Cholesterol 220 mg/dL (<200); Estimated Glomerular Filt Rate > 60; Glucose Fasting 128 mg/dL (60-99); HDL Cholesterol 40 mg/dL (>40); LDL Cholesterol Calculated 160 mg/dL (<100); Potassium 4.1 mmol/L (3.3-5.1); Sodium 140 mmol/L (135-145); Total Protein 6.9 g/dL (6.5-8.0); Triglycerides 101 mg/dL (<150); Uric Acid 6.8 mg/dL (3.4-7.0)
[2025-01-23 08:02] LABS: TSH reflex Free T4 2.57 uIU/mL (0.32-4.0); Vitamin D 25-OH Total 24.9 ng/mL (>30)
== END 2025-01-23 06:19 | disposition home or self-care (01) ==
LOC: HO.LAB 06:18
DX: M25.561 Pain in right knee (principal); M25.511 Pain in right shoulder; M25.512 Pain in left shoulder; M54.2 Cervicalgia; I10 Essential (primary) hypertension; E78.5 Hyperlipidemia, unspecified; R73.01 Impaired fasting glucose; R74.01 Elevation of levels of liver transaminase levels; M25.50 Pain in unspecified joint
CPT/HCPCS: 36415; 80053; 80061; 81003; 82306; 83036; 84443; 84550; 85025

== ENCOUNTER 2025-02-03 13:18 | Emergency (ER) | payer OTHER, SELFPAY ==
--- NOTE | ~2025-02-03 | XR_ITS ---
CLINICAL HISTORY: pain, difficulty flexing 4 view right knee Comparison: CR/WA/SR - XR KNEE RT 3V - 01/22/25 07:09 EDT Findings: Bones intact. No dislocations. Tricompartmental periarticular osteophyte formation, indicating osteoarthritis. No joint effusion. No radiopaque foreign body. IMPRESSION: 1. No acute findings. This document has been electronically signed by: Jeimy Shaikh MD on 02/03/2025 15:21:26
[2025-02-03 13:33] VITALS: BP 155/102; PULSE 83; RESP 16; TEMP 36.7; O2SAT 97; BMI 30.5
--- NOTE | 2025-02-03 13:34 | ED_ITS ---
HPI - Extremity Injury (Lower) General Chief Complaint: Extremity Injury, Lower Stated Complaint: knee pain Time Seen by Provider: 02/03/25 14:55 Source: patient and family ( spouse) Mode of arrival: ambulatory Limitations: no limitations History of Present Illness ED Provider: DR. Ferguson HPI Narrative: 55-year-old male came in for evaluation of right knee pain started since last night, patient declined any recent strenuous activity, no fall, no right knee injury, pain is localized to the right lateral side of the right knee radiating up along quadriceps tendon, pain is worse with movement or trying to bend his knee, able to bear weight and ambulate with some pain and limping. No fever, no chills, no redness, no hotness of the right knee. No recent strenuous activity. Related Data Home Medications ?Medication ?Instructions ?Recorded ?Confirmed multivitamin 1 cap PO DAILY 06/17/2001/06 Previous Rx's ?Medication ?Instructions ?Recorded lisinopril 20 mg tablet 20 mg PO DAILY 90 days #90 t abs 03/09/24 Held on 01/17/25. Instructions: Doctor's Order hydrochlorothiazide 25 mg tablet 25 mg PO DAILY #90 ta bs 10/07/24 Held on 01/17/25. Instructions: Doctor's Order metronidazole 1 % topical gel 1 appl topical BID PRN r osacea #60 11/16/24 (Metrogel) grams cyclobenzaprine 10 mg tablet 10 mg PO BEDTIME PRN musc le spasm 01/17/25 #30 tabs lisinopril 20 1 tab PO DAILY #90 tabs 01/06 10/02 mg-hydrochlorothiazide 25 mg tablet meloxicam 15 mg tablet 15 mg PO DAILY PRN pain #30 tabs 01/17/25 Allergies Allergy/AdvReac Type Severity Reaction Status Date / Time amoxicillin Allergy Unknown Hives Verified 02/03/25 13:35 Review of Systems 2 Review of Systems: all other systems are reviewed and are negative Constitutional: Reports as per HPI and Reports no additional constitutional complaints Eyes: Reports as per HPI and Reports no additional eye complaints Reports system reviewed and no additional complaints, except as documented Cardiovascular: Reports as per HPI and Reports no additional cardiovascular complaints Respiratory: Reports as per HPI and Reports no additional respiratory complaints Gastrointestinal: Reports as per HPI and Reports no additional gastrointestinal complaints Genitourinary: Reports no additional female genitourinary complaints Musculoskeletal: Reports no additional musculoskeletal complaints Skin/Breast: Reports system reviewed and no additional complaints, except as docu Psychiatric: Reports no additional psychiatric complaints Endocrine: Reports no additional endocrine complaints Hematologic/Lymphatic: Reports no additional hematologic/lymphatic complaints Allergic/Immunologic: Reports no additional allergic/immunologic complaints Reports system reviewed and no additional complaints, except as documented and Reports Abnormal speech present [facility] Past Medical History Medical History Bursitis of right shoulder Hypertension Surgical History History of carpal tunnel surgery History of lumbar laminectomy History of back surgery Family History Family History Father CVD (cardiovascular disease) Mother No problems noted. 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 Blood pressure elevated. Heart rate normal. Respiratory rate normal. Temperature normal. Oxygen saturation normal. Appearance: Alert. Oriented X3. No acute distress. Head: Normal external exam. Normocephalic. Atraumatic. No Casey signs noted. No raccoon eyes noted Eyes: PERRLA. EOMI. Conjunctiva and sclera normal. Eyelids normal. ENT: TM's Normal. Pharynx normal. Uvula midline. Moist mucous membranes. No trismus noted. No drooling noted. No muffled voice noted. Neck: Normal inspection. Neck supple. FROM. No adenopathy. Thyroid Normal. No meningeal signs. No neck mass noted. CVS: Normal heart rate and rhythm. Heart sound normal. No murmurs noted. Pulses normal throughout. Respiratory: No respiratory distress. Painless inspiration. Breath sounds normal. No wheezes/rales/rhonchi noted. Chest nontender. No accessory muscle usage noted or decreased air movement noted. Abdomen: Soft and nontender. Bowel sounds normal in all 4 quadrants. No distention noted. No organomegaly noted. No visible injury noted. Back: No CVA tenderness. Full range of motion noted. Skin: Skin warm and dry. Normal skin color. Normal skin turgor. No rashes/lesions/lacerations noted. Extremities: right knee: Mild fusion, palpable prepatellar bursa with no tenderness or drainage, no redness, no hotness, no deformity, no step-off, No ligamentous injury,able to bear weight on right knee. +Strong pulsation of right femur artery, right PT/DP arteries. no ischemic change in the right lower extremity. Neuro: Oriented X 3. Cranial nerve exam: II-XII are grossly intact No motor deficit. No sensory deficit. Reflexes normal. Course Course Course Narrative: 02/03/25 1334 JESSE Howard This is a Rapid Medical Examination (RME) performed by Orville Lee PA-C in triage. Full HPI, ROS, assessment and treatment plan per primary provider in the Main ED. Hx: 55 yo M here for eval of worsening R knee pain x24 hours. hx of cellulitis in this knee approx 1 yrs ago, feels similar. 9/10 pain at present, difficulty flexing R knee. Plan: labs, XR Reevaluation(s) Reevaluation #1: right knee pain x1 day, unremarkable x-ray, no ligamentous injury, labs are with a normal, will immobilize with knee brace and recommend NSAIDs and follow- up with Dr. Herrera as an outpatient. Patient has leftover meloxicam and cyclobenzaprine was instructed to use as needed as prescribed. Time: 15:39 Medical Decision Making Differential Diagnosis Differential Diagnoses: The differential diagnosis associated with the presentation includes ( Knee fracture, knee dislocation, ligamentous injury, inflammatory disorder, septic knee, bursitis.) Admission/Observation Consideration of admission/observation: Escalation of care including admission/observation considered Lab Data MDM Lab Attestation statement: I reviewed the patient's lab results. 02/03/25 13:45 02/03/25 13:45 Labs: Lab Results 02/03/25 Range/Units 13:45 WBC 5.2 (4.8-10.8) X10*3/uL RBC 4.98 (4.60-5.80) X10*6/uL Hgb 14.3 (14.0-18.0) g/dl Hct 42.1 (42.0-52.0) % MCV 84.5 (80.0-98.0) fL MCH 28.7 (27.0-33.0) pg MCHC 34.0 (31.0-36.0) g/dl RDW 12.6 (11.0-16.0) % Plt Count 222 (160-400) X10*3/uL MPV 9.7 (9.4-12.4) fL Immature Gran % (Auto) 0.2 (0.0-0.4) % Neut % (Auto) 48.7 (45-73) % Lymph % (Auto) 35.4 (20-40) % [place] % (Auto) 9.3 (2-11) % Eos % (Auto) 5.4 H (0-4) % Baso % (Auto) 1.0 (0-2) % Lymph # (Auto) 1.8 (1.2-4.9) X10*3/uL [place] # (Auto) 0.5 (0.1-1.2) X10*3/uL Eos # (Auto) 0.3 (0.0-0.4) X10*3/uL Baso # (Auto) 0.1 (0.0-0.2) X10*3/uL Abs Immat Gran (auto) 0.01 (0.00-0.03) X10*3/uL Absolute Neuts (auto) 2.5 (2.0-8.3) x10*3/uL Absolute Nucleated RBC 0.000 (0.0-0.012) X10*3/uL Nucleated RBC % (auto) 0.0 (0.0-0.2) /100WBC Sodium 140 (135-145) mmol/L Potassium 4.1 (3.3-5.1) mmol/L Chloride 105 (96-108) mmol/L Carbon Dioxide 25 (22-29) mmol/L Anion Gap 14 (12-20) BUN 16 (9-16) mg/dL Creatinine 0.93 (0.5-1.4) mg/dL Estim Creat Clear Calc 110.8 Estimated GFR > 60 Random Glucose 103 (60-115) mg/dL Uric Acid 7.4 H (3.4-7.0) mg/dL Calcium 9.5 (8.4-10.2) mg/dL Magnesium 1.7 (1.6-2.6) mg/dL Total Bilirubin 0.2 (0.0-1.0) mg/dL AST 28 (5-37) U/L ALT 37 (0-40) U/L Alkaline Phosphatase 54 (39-117) U/L C-Reactive Protein < 0.10 (< or = 0.50) mg/dL Total Protein 7.3 (6.5-8.0) g/dL Albumin 4.5 (3.5-5.0) g/dL Independent Interpretation I performed an independent interpretation of an: Plain X-Ray ( Right knee:Bones intact. No dislocations. Tricompartmental periarticular osteophyte formation, indicating osteoarthritis. No joint effusion. No radiopaque foreign body.) Radiology Impression Discussion of test interpretation with radiology: I have reviewed the radiologist's reading. Discharge Plan Discharge Clinical Impression: Arthralgia of knee, right Patient Disposition: Home, Self-Care Instructions: Arthralgia (ED) Additional Instructions: use your muscle relaxant cyclobenzaprine, meloxicam as needed for pain as instructed. Avoid any strenuous activity. Prescriptions: No Action lisinopril 20 mg tablet 20 mg PO DAILY 90 Days Qty: 90 8RF hydrochlorothiazide 25 mg tablet 25 mg PO DAILY Qty: 90 8RF metronidazole [Metrogel] 1 % gel 1 appl topical BID PRN (Reason: rosacea) Qty: 60 0RF multivitamin Capsule 1 cap PO DAILY cyclobenzaprine 10 mg tablet 10 mg PO BEDTIME PRN (Reason: muscle spasm) Qty: 30 3RF meloxicam 15 mg tablet 15 mg PO DAILY PRN (Reason: pain) Qty: 30 0RF lisinopril-hydrochlorothiazide 20-25 mg tablet 1 tab PO DAILY Qty: 90 3RF Referrals: Everardo Aj MD [Primary Care Provider, Internal Medicine] Bereket Herrera MD [Physician, Orthopedics] Print Language: Maltese
[2025-02-03 13:49] LABS: MANUAL DIFF FLAG NO
[2025-02-03 13:52] LABS: Basophils Absolute Auto 0.1 X10*3/uL (0.0-0.2); Eosinophils Absolute Auto 0.3 X10*3/uL (0.0-0.4); Eosinophils Percent Auto 5.4 % (0-4); Hematocrit 42.1 % (42.0-52.0); Hemoglobin 14.3 g/dl (14.0-18.0); Imm Gran Abs Auto 0.01 X10*3/uL (0.00-0.03); Imm Gran Pct Auto 0.2 % (0.0-0.4); Lymphocytes Absolute Auto 1.8 X10*3/uL (1.2-4.9); Lymphocytes Percent Auto 35.4 % (20-40); Mean Corpuscular Hemoglobin 28.7 pg (27.0-33.0); Mean Corpuscular Volume 84.5 fL (80.0-98.0); Mean Platelet Volume 9.7 fL (9.4-12.4); Monocytes Absolute Auto 0.5 X10*3/uL (0.1-1.2); Monocytes Percent Auto 9.3 % (2-11); Neutrophils Absolute Auto 2.5 x10*3/uL (2.0-8.3); Neutrophils Percent Auto 48.7 % (45-73); Platelet Count 222 X10*3/uL (160-400); Red Blood Count 4.98 X10*6/uL (4.60-5.80); Red Cell Distribution Width 12.6 % (11.0-16.0); White Blood Count 5.2 X10*3/uL (4.8-10.8)
[2025-02-03 14:06] LABS: Alanine Aminotransferase 37 U/L (0-40); Albumin Level 4.5 g/dL (3.5-5.0); Alkaline Phosphatase 54 U/L (39-117); Anion Gap 14 (12-20); Aspartate Amino Transferase 28 U/L (5-37); Bilirubin Total 0.2 mg/dL (0.0-1.0); Blood Urea Nitrogen 16 mg/dL (9-16); C Reactive Protein < 0.10 mg/dL (< or = 0.50); Calcium 9.5 mg/dL (8.4-10.2); Carbon Dioxide 25 mmol/L (22-29); Chloride 105 mmol/L (96-108); Creatinine Clr Calc Pharmacy 110.8; Estimated Glomerular Filt Rate > 60; Glucose Random 103 mg/dL (60-115); Magnesium 1.7 mg/dL (1.6-2.6); Potassium 4.1 mmol/L (3.3-5.1); Sodium 140 mmol/L (135-145); Total Protein 7.3 g/dL (6.5-8.0); Uric Acid 7.4 mg/dL (3.4-7.0)
--- OUTSIDE RECORDS SUMMARY | 2025-02-03 15:00 | XMS_ITS | Patient Health Record ---
Author Organization [facility] Address [address] [place] [address] Care Team Providers Care Real Estate Office Manager Name Role Phone Leroy Schneider [...] Problem Status W/U Status Risk Notes Problem [id number] Colon cancer screening (Z12.11) Active confirmed Problem [id number] Encounter for other preprocedural examination (Z01.818) Active confirmed Plan Of Treatment Future Test Test Name Order Date COLONOSCOPY 06/02/2020 Insurance Providers Payer Name Payer Address Payer Phone Subscriber Number Group Number Insured Name Patient Relationship to Insured Coverage Start Date Coverage End Date [facility] [address] [place], [place] [id number] MANAS SIMENTAL Self - patient is the insured Medical (General) History Medical History History ICD Code hypertension Surgical History Surgery Date(Month/Year) back surgery - lower 2003, 2017
[2025-02-03 16:02] VITALS: BP 138/72; PULSE 78; RESP 18; TEMP 36.8; O2SAT 99
== END 2025-02-03 16:02 | disposition home or self-care (01) ==
PROVIDERS: Physician Assistant Medical; Emergency Provider Emergency Medicine; PCP Internal Medicine
DX: M25.561 Pain in right knee (principal)
CPT/HCPCS: 36415; 73564; 80053; 83735; 84550; 85025; 86140; 99283; 99284

== ENCOUNTER → 2025-02-03 13:35 | Outpatient (BNV) | payer OTHER, SELFPAY | PROVIDERS: Emergency Provider Emergency Medicine; PCP Internal Medicine; Visit Provider Radiology Diagnostic Radiology | DX: M25.561 Pain in right knee (principal); R26.2 Difficulty in walking, not elsewhere classified | CPT/HCPCS: 73564 ==

== ENCOUNTER 2025-02-21 14:10 | Outpatient (AMB) | payer OTHER, SELFPAY ==
--- NOTE | 2025-02-21 14:13 | MHC.OFFVIS ---
Vital Signs 02/21/25 14:19 Height 6 ft Weight 224 lb BMI 30.4 Intake Visit Reasons: Right knee pain and giving way Intake Note: Bill is a 55 eyar old male who presents with complaints of right knee pain and giving way. He describes his pain as sharp in nature. Most of the pain is along the medial and posterior aspect of his knee. States that his symptoms began approximately 1 year ago when he had been treated for cellulitis of his right leg. He has tried physical therapy exercises which aggravated his pain. He has also tried Tylenol, anti-inflammatory medicines and muscle relaxants which gave him minimal relief. He has failed the last 6 weeks of conservative treatment. Allergies amoxicillin Allergy (Unknown, Verified 02/21/25 14:18) Hives Medication List - Last Reconciled 02/21/25 by Frantz Pang MD cyclobenzaprine 10 mg PO BEDTIME PRN hydrochlorothiazide 25 mg PO DAILY Held on 01/17/25. Instructions: Doctor's Order lisinopril 20 mg PO DAILY 90 days Held on 01/17/25. Instructions: Doctor's Order lisinopril-hydrochlorothiazide 20-25 mg 1 tab PO DAILY meloxicam 15 mg PO DAILY PRN metronidazole 1% (Metrogel) 1 appl topical BID PRN multivitamin 1 cap PO DAILY PFSH Medical History Bursitis of right shoulder Hypertension Surgical History History of carpal tunnel surgery History of lumbar laminectomy History of back surgery Family History Father CVD (cardiovascular disease) Mother No problems noted. 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 Cognitive needs: No Hearing needs: No Vision needs: No Physical Exam Vital Signs: BMI result Body Mass Index 30.4 Const Other: Well-nourished well-developed very friendly male awake alert and oriented x3 in no acute distress Extrem Other: Right knee examination shows a minimal effusion, mild crepitus with range of motion, tenderness along his medial joint line, positive Ras's test, no instability Results Reviewed Results Reviewed: X-rays of the patient's right knee taken previously show mild to moderate diffuse joint space narrowing, no acute bony abnormalities Assessment & Plan Assessment & Plan (1) Tear of medial meniscus of right knee: Code(s): S83.241A - Other tear of medial meniscus, current injury, right knee, initial encounter Category: Medical Plan Mr. Iverson presents with right knee pain and mechanical symptoms due to early degenerative joint disease as well as possible medial meniscus tearing. Thus, I will send the patient for an MRI of his right knee for further evaluation. I will him back once the MRI is completed to discuss the findings and treatment options. Feel free to call me at any time should questions regarding his orthopedic management arise. I spent 22 minutes in reviewing the patient's records and imaging studies, seeing the patient and documenting in the medical record. Orders: Orders MR knee RT wo con 02/22/25 S83.241A - Other tear of medial meniscus, current injury, right knee, initial encounter Coding Level of Care Code New Pt Level 3 (96694) Complex EM visit Add On G2211 Diagnoses Tear of medial meniscus of right knee S83.241A
[2025-02-21 14:19] VITALS: BMI 30.4
--- OUTSIDE RECORDS SUMMARY | 2025-02-21 15:00 | XMS_ITS | Patient Health Record ---
Author Organization [facility] Address [address] [place] [address] Care Team Providers Care Octave Board Assembler Name Role Phone Leroy Schneider MD Primary [...] Problem Status W/U Status Risk Notes Problem [id number] Colon cancer screening (Z12.11) Active confirmed Problem [id number] Encounter for other preprocedural examination (Z01.818) Active confirmed Plan Of Treatment Future Test Test Name Order Date COLONOSCOPY 06/02/2020 Insurance Providers Payer Name Payer Address Payer Phone Subscriber Number Group Number Insured Name Patient Relationship to Insured Coverage Start Date Coverage End Date [facility] [address] [place], [place] [id number] MANAS SIMENTAL Self - patient is the insured Medical (General) History Medical History History ICD Code hypertension Surgical History Surgery Date(Month/Year) back surgery - lower 2003, 2017
--- OUTSIDE RECORDS SUMMARY | 2025-02-21 15:00 | XMS_ITS | Encounter Summary ---
Author Organization [facility] Address [address] [place] [address] Care Team Providers Care Diversified Crops I Farmworker Name Role Phone Leroy Schneider MD Primary Care Provider [phone] Encounter Details Date Type Department Care Team (Late st Contact Info) Description 05/08/2020 Scanned Document [facility] Neurosurgery [place] [address] [facility] [address] [place] [id number] Suresh Sellers MD [address] [facility] [place] [address] [place] [id number] Social History Tobacco Use Types Packs/Day Years Used Date Smoking Tobacco: Never Assessed Sex and Gender Information Value Date Recorded Sex Assigned at Not on file Legal Sex Male 2:07 PM EDT Gender Identity Not on file Sexual Orientation Not on file documented as of this encounter Plan of Treatment Not on file documented as of this encounter Visit Diagnoses Not on filedocumented in this encounter Care Teams D[employer]ified Cro[employer] I Farmworker Relationship Specialty Start Date End Date Leroy Schneider MD [address] [place] [id number] PCP - General 04/02/20 documented as of this encounter
== END 2025-02-21 14:30 | disposition home or self-care (01) ==
LOC: HO.HOS 14:11
PROVIDERS: PCP Internal Medicine; Visit Provider Orthopaedic Surgery
DX: S83.241A Other tear of medial meniscus, current injury, right knee, initial encounter (principal)
CPT/HCPCS: 99203

== ENCOUNTER → 2025-03-06 19:38 | Outpatient (BNV) | payer OTHER, SELFPAY | PROVIDERS: PCP Internal Medicine; Visit Provider Radiology Diagnostic Radiology | DX: M70.41 Prepatellar bursitis, right knee (principal) | CPT/HCPCS: 73721 ==

== ENCOUNTER 2025-03-06 19:39 | Outpatient (REF) | payer OTHER, SELFPAY ==
--- NOTE | ~2025-03-06 | MR_ITS ---
EXAMINATION: MRI RIGHT KNEE WITHOUT CONTRAST HISTORY: S83.241A - Other tear of medial meniscus, current injury, right knee COMPARISON: Comparison is made with the prior examination dated 05/23/2017. Correlation is also made with plain films of the right knee dated 02/03/2025. TECHNIQUE: Coronal T1 and fat-suppressed proton density, sagittal proton density and fat-suppressed proton density, and axial fat suppressed T2 weighted MR images of the right knee were obtained. FINDINGS: Bone marrow: Bone marrow signal intensity is normal. Joint effusion: There is a small joint effusion. There is a 1.8 x 1.8 x 1.3 cm loose body in the posterior aspect of the joint space. Savage's cyst: There is no Savage's cyst. Articular cartilage: There is mild to moderate tricompartmental osteoarthritis with cartilage loss and osteophyte formation. Muscles/soft tissues: There is soft tissue swelling and fluid in the subcutaneous soft tissues anterior to the patellar tendon compatible with prepatellar bursitis. There is a multiseptated 5.8 x 1.5 x 1.3 cm cystic structure associated with the distal semimembranosus tendon compatible with a ganglion cyst. The visualized muscles demonstrate normal signal intensity. Anterior cruciate ligament: Intact Posterior cruciate ligament: Intact Medial collateral ligament: Intact Lateral collateral ligament: Intact Medial meniscus: The posterior horn of the medial meniscus is diminutive in size and irregular in shape with a focus of intrasubstance signal intensity which contacts the inferior joint surface. Findings are consistent with tear. The anterior horn is intact. Lateral meniscus: There are multiple foci of increased signal intensity in the posterior horn which contacts the superior and inferior joint surface is consistent with a tear which is likely degenerative in nature. Flexor mechanism: The popliteus, gastrocnemius, and hamstring tendons are intact. Quadriceps tendon: Intact Patellar tendon: There is mild increased T2 signal intensity at the origin the patellar tendon consistent with tendinosis. Patellar retinacula: Intact MR/MR knee RT wo con IMPRESSION: 1. Mild to moderate tricompartmental osteoarthritis. 2. 1.8 x 1.8 x 1.3 cm loose body in the posterior aspect of the joint space. 3. 5.8 x 1.5 x 1.3 cm ganglion cyst associated with the distal semimembranosus tendon. 4. Prepatellar bursitis. 5. Degenerative tears of the posterior horns of the medial and lateral menisci. Electronically signed by: Bill Pierson MD 03/07/2025 07:20 AM EDT
== END 2025-03-06 19:40 | disposition home or self-care (01) ==
LOC: HO.MRI 19:39
PROVIDERS: PCP Internal Medicine; Visit Provider Orthopaedic Surgery
DX: S83.241D Other tear of medial meniscus, current injury, right knee, subsequent encounter (principal)
CPT/HCPCS: 73721

== ENCOUNTER 2025-03-27 16:22 | Outpatient (AMB) | payer OTHER, SELFPAY ==
--- NOTE | 2025-03-27 16:26 | A.OFFPC_ITS ---
Vital Signs 03/27/25 16:27 Height 6 ft Weight 221 lb 4 oz BMI 30.0 BP 120/78 Blood Pressure Location Lt brachial Position Sitting Pulse 73 Pulse Source Pulse Oximeter Temp 97.3 F Temp Source Temporal Artery Scan Pulse Oximetry (%) 99 Oxygen Delivery Method Room Air Intake Visit Reasons: Transfer Care from Dr. Schneider 6mth f/u Intake Note: Patient is here today for KATHIA from Dr SCHNEIDER. 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 Schneider 6m f/u HPI Details Patient comes in today for his follow up visit - is transferring over from Dr. Schneider, who retired from the practice a few months ago Patient states that he feels okay overall except for his right knee pain for which he is currently seeing orthopedics He had an MRI of the right knee done at the end of last month on 03/06/2025 and he has a follow up appointment with orthopedics next month on 04/18/2025 to discuss further management and plan of care He is also requesting for a prescription for a foot drop brace for his left foot as his current brace is not fitting well and he would like to see about getting fitted for a more properly fitting one States that he has a history of herniated disc in his lower back and has had a couple of surgeries done on his lumbar spine over the past several years to help address this and he has a left foot drop as a result of his lower back issues He denies any headaches or dizziness Denies any chest pains, no SOB No nausea/vomiting, no abdominal pain No change in bowel habits noted [facility] Medical History (Updated 03/27/25 @ 19:04 by Everardo Aj MD) Degenerative joint disease of right knee Obesity (BMI 30-39.9) Hyperuricemia Vitamin D deficiency Impaired fasting glucose Pure hypercholesterolemia Essential hypertension Lumbar degenerative disc disease Bursitis of right shoulder Surgical History (Updated 03/27/25 @ 18:58 by Everardo Aj MD) History of colonoscopy History of carpal tunnel surgery History of lumbar laminectomy History of back surgery Family History Father CVD (cardiovascular disease) Mother No problems noted. 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 Depression Screening Interpretation: Negative Depression Screening Done: Yes Source: Developed by Drs. Bill Nguyễn, Lazara Escobar, Daniel Quick and colleagues, with an educational jonas from [employer]. Thrive Questionnaire Date Thrive assessed: 09/26/24 I am a: Patient What is your living situation today?: I have a steady place to live Within the past 12 months, did the food you bought not last and you didn't have the money to get more?: Never true Within the past 12 months, did you worry whether your food would run out before you got money to buy more?: Never true Do you have trouble paying for medicines?: No Do you have trouble getting transportation to medical appointments?: No Do you have trouble paying your heating and electricity bill?: No Do you have trouble taking care of your child, family member or friend?: No Do you have trouble with day-to-day activities such as bathing, preparing meals, shopping, managing finances, etc.?: No Are you currently unemployed and looking for a job?: No Are you interested in more education?: I choose not to answer this question Please select the resources that you would like help with: None Currently or been in a relationship where the following occur: No concerns reported THRIVE Score: 0 KATIE-7 AMB Questionnaire KATIE-7 Date KATIE - 7 assessed: 09/26/24 Source: Developed by Drs. Bill Nguyễn, Lazara Escobar, Daniel Quick and colleagues, with an educational jonas from [employer]. Review of Systems Const Denies chills, Denies fatigue, Denies fever(s) and Denies headache(s) ENT Denies dysphagia, Denies dizziness, Denies otalgia, Denies headache(s), Denies neck pain, Denies odynophagia and Denies sore throat Card Denies chest pain, Denies palpitations and Denies dyspnea Resp Denies chest congestion, Denies cough and Denies dyspnea GI Denies abdominal pain, Denies constipation, Denies dysphagia, Denies heartburn, Denies diarrhea, Denies nausea, Denies odynophagia and Denies vomiting Denies difficulty urinating, Denies dysuria, Denies nocturia and Denies urinary frequency Musc Details: (+) left foot drop Reports back pain (over the lower back - chronic), Reports arthralgias (over both knees; worse in the right knee lately) and Denies neck pain Skin/Breast Denies rash Neuro Denies dizziness and Denies headache(s) Endo Denies fatigue and Denies palpitations Physical exam (Primary Care) Vital Signs: Last Vital Signs Temp 97.3 F 03/27/25 16:27 Pulse 73 03/27/25 16:27 BP 120/78 03/27/25 16:27 Pulse Ox 99 03/27/25 16:27 Oxygen Delivery Method Room Air 03/27/25 16:27 BMI result Body Mass Index 30.0 Tobacco/Smoking Status: Tobacco use Status Tobacco use date assessed 03/27/25 03/27/25 16:32 Patient Tobacco Use Status Never used Tobacco 03/27/25 16:32 Tobacco use type Cigarette 03/27/25 16:32 e-Cigarette/Vaping Use Never Used 03/27/25 16:32 Depression Screening Interpretation: Negative Thrive Assessment: Date of Thrive Assessment Date Thrive assessed 09/26/24 03/27/25 16:32 Currently or been in a relationship where the following occur: No concerns reported Const General: no acute distress and alert HENMT Ears: TM's normal bilaterally and EAC's normal Throat: Yes posterior oropharynx normal and Yes tonsils normal (no TP congestion) Neck Neck: Yes supple and No lymphadenopathy Thyroid: Thyroid normal Resp Auscultation: clear to auscultation bilaterally, no rales and no wheezes Cardio Rate: regular rate Rhythm: regular rhythm Heart sounds: no murmurs GI Palpation (GI): Soft to palpation and nontender Auscultation: normal bowel sounds General: Yes no CVA tenderness Back/Spine/Pelvis Back: no CVA tenderness Thoracic/Lumbar Spine: kyphosis and lumbar spinal tenderness (mild) Skin Rashes: no rashes Extrem General: Yes no clubbing, cyanosis or edema Right lower extremity: knee Details: tenderness Location: of the medial joint line, of the lateral joint line and of the pre-patellar area; no swelling Left lower extremity: knee Details: tenderness (mild) Location: of the pre-patellar area; no swelling and foot Details: other ((+) foot drop) Coding Level of Care Code Est Pt Level 4 (97507) Diagnoses Essential hypertension I10 Pure hypercholesterolemia E78.00 Impaired fasting glucose R73.01 Vitamin D deficiency E55.9 Hyperuricemia E79.0 Degeneration of intervertebral disc of lumbar region with discogenic back pain M51.360 Disc-related pain type: discogenic back pain only Primary osteoarthritis of right knee M17.11 Osteoarthritis type: primary Foot drop, left M21.372 Obesity (BMI 30-39.9) E66.9 Assessment & Plan Assessment & Plan (1) Essential hypertension: Code(s): I10 - Essential (primary) hypertension Category: Medical Plan: Reinforced low-sodium diet - goal is systolic BP of 120 mm or less Continue Lisinopril-Hydrochlorothiazide 20-25 mg QD Patient is reminded to continue monitoring his blood pressure regularly (2) Pure hypercholesterolemia: Code(s): E78.00 - Pure hypercholesterolemia, unspecified Category: Medical Plan: His total cholesterol level was elevated at 220 mg/dl and LDL cholesterol was at 160 mg/dl when they were last checked in January 2025 Reinforced low cholesterol diet Will recheck his labs and fasting lipids in 4 months for follow-up (3) Impaired fasting glucose: Code(s): R73.01 - Impaired fasting glucose Category: Medical Plan: His HgbA1c was at 6.4% back in January 2025 Reinforced low calorie/low carb diet; exercise as tolerated Will recheck his FBS and HgbA1c in 4 months for follow-up (4) Vitamin D deficiency: Code(s): E55.9 - Vitamin D deficiency, unspecified Category: Medical Plan: He is advised that his vitamin-D level was still low on his recent labs done a couple of months ago Will start him back on Vitamin D3 2000 units QD (5) Hyperuricemia: Code(s): E79.0 - Hyperuricemia without signs of inflammatory arthritis and tophaceous disease Category: Medical Plan: Patient's serum uric acid level was at 7.4 mg/dL on his recent labs done back in January 2025 He denies any acute gout flare-ups or joint pain/swelling lately Discussed low purine diet Will recheck his serum uric acid level in 4 months for follow-up (6) Lumbar degenerative disc disease: Code(s): M51.369 - Other intervertebral disc degeneration, lumbar region without mention of lumbar back pain or lower extremity pain Category: Medical Qualifiers: Disc-related pain type: discogenic back pain only Qualified Code(s): M51.360 - Other intervertebral disc degeneration, lumbar region with discogenic back pain only Plan: Reinforced activity and weightlifting restrictions Patient reportedly had a lumbar laminectomy done back in 2003 and has had a couple of other back surgeries done since Continue cyclobenzaprine 10 mg Q HS PRN (7) Degenerative joint disease of right knee: Code(s): M17.11 - Unilateral primary osteoarthritis, right knee Category: Medical Qualifiers: Osteoarthritis type: primary Qualified Code(s): M17.11 - Unilateral primary osteoarthritis, right knee Plan: Right knee MRI done last month revealed (+) mild to moderate tricompartmental osteoarthritis, prepatellar bursitis and degenerative tears of the posterior horns of the medial and lateral menisci Follow up with orthopedics as scheduled (8) Foot drop, left: Code(s): M21.372 - Foot drop, left foot Category: Medical Plan: Per request, Rx for drop foot AFO brace provided and patient is advised to bring this to his medical supply/orthotics store and make arrangements with them on his own to resize his brace for him (9) Obesity (BMI 30-39.9): Code(s): E66.9 - Obesity, unspecified Category: Medical Plan: Reinforced diet/exercise as tolerated/lose weight Plan Follow up in 4 months Orders: Orders Hemoglobin A1c 4 Months R73.01 - Impaired fasting glucose Complete Blood Count Auto Diff 4 Months D64.9 - Anemia, unspecified Comprehensive [place]. Panel Fast 4 Months E78.00 - Pure hypercholesterolemia, unspecified Lipid Panel 4 Months E78.00 - Pure hypercholesterolemia, unspecified UA CC w/rflx Micro + Cult 4 Months R30.0 - Dysuria TSH reflex Free T4 4 Months E78.00 - Pure hypercholesterolemia, unspecified Vitamin D 25-OH Total 4 Months E55.9 - Vitamin D deficiency, unspecified Uric Acid 4 Months M10.9 - Gout, unspecified Medications: New [DROP FOOT BRACE (left)] As directed 1 ea 0RF M21.372 - Foot drop, left foot, M51.16 - Intervertebral disc disorders with radiculopathy, lumbar region
[2025-03-27 16:27] VITALS: BP 120/78; PULSE 73; TEMP 36.3; O2SAT 99
--- OUTSIDE RECORDS SUMMARY | 2025-03-27 16:40 | XMS_ITS | Encounter Summary ---
Author Organization [facility] Address [address] [place] [address] Care Team Providers Care Dray Driver Name Role Phone Leroy Schneider MD Primary Care Provider [phone] Encounter Details Date Type Department Care Team (Late st Contact Info) Description 05/08/2020 Scanned Document [facility] Neurosurgery [place] [address] [facility] [address] [place] [phone] Suresh Sellers MD [address] [facility] [place] [address] [place] [id number] Social History Tobacco Use Types Packs/Day Years [...] on filedocumented in this encounter Care Teams Dray Driver Relationship Specialty Start Date End Date Leroy Schneider MD [address] [place] [address] PCP - General 04/02/20 documented as of this encounter
--- OUTSIDE RECORDS SUMMARY | 2025-03-27 16:40 | XMS_ITS | Patient Health Record ---
Author Organization [facility] Address [address] [place] [address] Care Team Providers Care Ship Worker Name Role Phone Leroy Schneider MD Primary Care Provider Wili Navarro Jr Unavailable [phone] Allergies Allergen (clinical drug ingredient) Drug/Non Drug [...] Problem Status W/U Status Risk Notes Problem [id number] Colon cancer screening (Z12.11) Active confirmed Problem [id number] Encounter for other preprocedural examination (Z01.818) Active confirmed Plan Of Treatment Future Test Test Name Order Date COLONOSCOPY 06/02/2020 Insurance Providers Payer Name Payer Address Payer Phone Subscriber Number Group Number Insured Name Patient Relationship to Insured Coverage Start Date Coverage End Date [facility] [address] [place], [place] [id number] MANAS SIMENTAL Self - patient is the insured Medical (General) History Medical History History ICD Code hypertension Surgical History Surgery Date(Month/Year) back surgery - lower 2003, 2017
== END 2025-03-27 17:24 | disposition home or self-care (01) ==
PROVIDERS: PCP Internal Medicine; Visit Provider Internal Medicine
DX: I10 Essential (primary) hypertension (principal); E78.00 Pure hypercholesterolemia, unspecified; E66.9 Obesity, unspecified; Z68.30 Body mass index [BMI] 30.0-30.9, adult; M21.372 Foot drop, left foot; R73.01 Impaired fasting glucose; E55.9 Vitamin D deficiency, unspecified; E79.0 Hyperuricemia without signs of inflammatory arthritis and tophaceous disease; M51.360 Other intervertebral disc degeneration, lumbar region with discogenic back pain only; M17.11 Unilateral primary osteoarthritis, right knee

== ENCOUNTER 2025-04-12 20:41 | Emergency (ER) | payer OTHER, SELFPAY ==
[2025-04-12 20:49] VITALS: BP 164/87; PULSE 88; RESP 18; TEMP 36.8; O2SAT 96; BMI 30.6
--- OUTSIDE RECORDS SUMMARY | 2025-04-12 21:50 | XMS_ITS | Clinical Summary ---
Author Organization [facility] Address [address] [place] [address] Care Team Providers Care [employer] Assembler Name Role Phone Leroy Schneider MD Primary Care Provider [phone] Social History Tobacco Use Types Packs/Day Years [...] (1 of 3 - 19+ 3-dose series) 01/07 Colonoscopy 2015 Pneumococcal Vaccines 50+ (1 of 1 - PCV) 01/28/2020 Zoster (Shingles) Vaccine (1 of 2) 01/28/2020 COVID-19 Vaccine (1 - 2023- season) 2024 Influenza Vaccine 03/08/2025 Insurance [employer] Care Teams [employer] Assembler Relationship Specialty Start Date End Date Leroy Schneider MD [address] [place] [address] PCP - General 04/02/20
--- OUTSIDE RECORDS SUMMARY | 2025-04-12 21:50 | XMS_ITS | Patient Health Record ---
Author Organization [facility] Address [address] [place] [address] Care Team Providers Care Prism Inspector Name Role Phone Leroy Schneider MD Primary Care Provider Wili Navarro Jr Unavailable [phone] Allergies Allergen (clinical drug ingredient) Drug/Non Drug [...] Problem Status W/U Status Risk Notes Problem [id number] Colon cancer screening (Z12.11) Active confirmed Problem [id number] Encounter for other preprocedural examination (Z01.818) Active confirmed Plan Of Treatment Future Test Test Name Order Date COLONOSCOPY 06/02/2020 Insurance Providers Payer Name Payer Address Payer Phone Subscriber Number Group Number Insured Name Patient Relationship to Insured Coverage Start Date Coverage End Date [facility] [address] [place], [place] [id number] MAANS SIMENTAL Self - patient is the insured Medical (General) History Medical History History ICD Code hypertension Surgical History Surgery Date(Month/Year) back surgery - lower 2003, 2017
--- OUTSIDE RECORDS SUMMARY | 2025-04-12 21:50 | XMS_ITS | Encounter Summary ---
Author Organization [facility] Address [address] [place] [address] Care Team Providers Care Neurosurgery Physician Name Role Phone Leroy Schneider MD Primary Care Provider [phone] Encounter Details Date Type Department Care Team (Late st Contact Info) Description 05/08/2020 Scanned Document [facility] Neurosurgery [place] [address] [facility] [address] [place] [phone] Suresh Sellers MD 85 [facility] [place] [address] [place] [address] Social History Tobacco Use Types Packs/Day Years [...] on filedocumented in this encounter Care Teams Neurosurgery Physician Relationship Specialty Start Date End Date Leroy Schneider MD [address] [place] [address] PCP - General 04/02/20 documented as of this encounter
--- NOTE | 2025-04-12 22:12 | ED.GENADULT ---
HPI - General Adult General Chief complaint: Neck Pain/Injury Stated complaint: neck pain Time Seen by Provider: 04/12/25 22:11 Source: patient Mode of arrival: ambulatory Limitations: no limitations History of Present Illness ED Provider: Romulo MOLINA HPI narrative: Patient is a 55-year-old male presenting to the ED reporting morning he noted slight stiffness in his neck which got worse over time. Patient reports majority of pain is with lateral rotation in either direction or hyperextension which causes pain in the left paracervical muscles radiating to the left trapezius. The patient denies any associated fever/chills, nausea, vomiting, headache, dizziness, chest pain, shortness of breath, recent sick contacts, or recent trauma. Patient denies significant pain with neck flexion. The patient denies any recent change in activity level. Patient reports not sleeping well overnight last night and woke this morning with more severe pain, pain increased throughout the day despite attempting meloxicam , which the patient takes occasionally for chronic right knee pain, at approximately 18:00, after symptoms did not improve with the meloxicam patient presented to the ED for evaluation. The patient denies any focal neurological deficit. Related Data Home Medications ?Medication ?Instructions ?Recorded ?Confirmed multivitamin 1 cap PO DAILY 06/17/20 03/27/25 Previous Rx's ?Medication ?Instructions ?Recorded metronidazole 1 % topical gel 1 appl topical BID PRN rosacea #60 11/16/24 (Metrogel) grams cyclobenzaprine 10 mg tablet 10 mg PO BEDTIME PRN muscle spasm 01/17/25 #30 tabs lisinopril 20 1 tab PO DAILY #90 tabs 01/17/25 mg-hydrochlorothiazide 25 mg tablet meloxicam 15 mg tablet 15 mg PO DAILY PRN pain #30 tabs 03/16/25 DROP FOOT BRACE (left) #1 ea 03/27/25 acetaminophen 500 mg capsule 1,000 mg (2 x 500 mg) PO .q8 PRN 04/12/25 fever or pain #30 caps diazepam 5 mg tablet (Valium) 5 mg PO TID PRN muscle spasm #10 04/12/25 tabs ibuprofen 600 mg tablet 600 mg PO Q8H PRN fever or pain 04/12/25 #30 tabs Allergies Allergy/AdvReac Type Severity Reaction Status Date / Time amoxicillin Allergy Unknown Hives Verified 04/12/25 20:52 Review of Systems Review of Systems: Yes all other systems are reviewed and are negative [facility] Past Medical History Medical History (Updated 04/12/25 @ 22:54 by Romulo Ponce PA-C) Degenerative joint disease of right knee Obesity (BMI 30-39.9) Hyperuricemia Vitamin D deficiency Impaired fasting glucose Pure hypercholesterolemia Essential hypertension Lumbar degenerative disc disease Bursitis of right shoulder Surgical History (Updated 03/27/25 @ 18:58 by Everardo Aj MD) History of colonoscopy History of carpal tunnel surgery History of lumbar laminectomy History of back surgery Family History Family History Father CVD (cardiovascular disease) Mother No problems noted. 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 Vital signs as documented. HEAD: Atraumatic, normocephalic. EYES: EOMs grossly intact, pupils equal, conjunctiva clear, no exudate. ENT: Nares patent, no discharge. Airway patent, no audible stridor, visible mucosa is pink and moist without noted lesions. NECK: trachea is midline, no obvious masses or gross abnormalities. There is no midline cervical spinal tenderness, no crepitus or step-off. There is tenderness to palpation of the inferior cervical paraspinal region radiating into the left trapezius. Patient has limited lateral rotation bilaterally, limited extension, but is able to touch chin to chest. CHEST: Symmetric movement, normal appearance. LUNGS: Non-labored work of breathing. CARDIAC: No evidence of hypoperfusion. ABDOMEN: Nondistended, no obvious injury. : Deferred. EXTREMITIES: Moves all extremities spontaneously without reported pain. No obvious injury or deformity noted. NEURO: Alert and oriented x3, CN II-XII appear grossly intact. Cerebellar Functioning grossly intact. Strength 5/5 in the bilateral upper extremities. Speech clear and appropriate. SKIN: Warm, dry, color appropriate. No rashes or lesions noted. Medical Decision Making Medical Decision Making MDM Narrative: 10:51 PM 04/12/2025 (Orville MOLINA): The patient is a 55-year-old male presenting to the ED for evaluation of acute onset neck pain which began morning and worsened throughout the past 48 hours. The patient attempted meloxicam without relief. In the ED patient appears in obvious discomfort, splinting his head to avoid lateral rotation or extension of the neck. Exam is otherwise reassuring, no focal neurological deficit. The patient is afebrile without headache or meningismus. The patient's presentation is consistent with likely spasmodic torticollis, we will treat with Tylenol and lidocaine patch to supplement meloxicam taken at 18:00. Additionally the patient will be calling for a ride home and when able to confirm a ride home with his brother who lives in [place], we will provide Ativan for muscle spasm relief. We will discharge with antispasmodics and supportive care. 11:02 PM 04/12/2025 (Orville MOLINA): Patient was unable to secure a ride home but does advised he lives on [address], which is approximately 1 block away, patient advises he feels comfortable with the plan to walk home and return in the morning to obtain his vehicle. Patient has been instructed not to operate a vehicle after being given Valium in the ED. patient will be discharged with supportive care and antispasmodics as described above. Admission/Observation Consideration of admission/observation: Escalation of care including admission/observation considered External Record Review External record reviewed: Outpatient record Prescription Management I considered prescription management with: Pain Medication and Other (anti-spasmodic) Discharge Plan Discharge Clinical Impression: Spasmodic torticollis Patient Disposition: Home, Self-Care Instructions: Spasmodic Torticollis (ED), Muscle Spasm (ED) Additional Instructions: Thank you for choosing [facility] Emergency Department for your care today. Your exam today is consistent with spasmodic torticollis, a muscle spasm in your neck causing you difficulty and pain when attempting to move your neck. At this time there is no indication for admission to the hospital or continued ED observation, and it is safe to discharge you home. You should take alternating (staggered) doses of ibuprofen 600mg and Tylenol 1000mg every 4 hours as needed for any additional pain. Do NOT take meloxicam at the same time or within 24 hours of taking ibuprofen. Please rest the injured area, and apply ice for 20 minutes every hour. You can also apply heat if this is more effective. Please stay well hydrated. As a part of your care plan, you have also been prescribed a muscle relaxer called Valium. Please take this medication only for severe pain or spasm that is not relieved by ibuprofen and/or Tylenol. Muscle relaxer medications can carry high risk of unintentional addiction and abuse. Take this medication only as directed and only if absolutely necessary. This medicine can make you drowsy, you are not allowed to drive, operate heavy machinery, or be the sole care provider for children while taking this medication. We have treated you with a lidocaine patch, if you find this provides you significant relief additional patches can be purchased at any local pharmacy without a prescription. Please follow up with your primary care physician for re-evaluation, additional management of your symptoms, and continued preventative care. If you do not have a primary care physician, please call the [facility] at [phone] to establish a new primary care physician. While waiting to establish your new primary care physician, you can call our Walk[facility]in [facility] at [phone] for non-emergency needs. Please return to the emergency department if you develop a severe or sudden change in your symptoms, a fever over 100.4 that does not improve with Tylenol or Ibuprofen, recurrent vomiting, or any other new or worsening symptoms or concerns. Prescriptions: New acetaminophen 500 mg capsule 1,000 mg PO .q8 PRN (Reason: fever or pain) Qty: 30 0RF diazepam [Valium] 5 mg tablet 5 mg PO TID PRN (Reason: muscle spasm) Qty: 10 0RF ibuprofen 600 mg tablet 600 mg PO Q8H PRN (Reason: fever or pain) Qty: 30 0RF No Action metronidazole [Metrogel] 1 % gel 1 appl topical BID PRN (Reason: rosacea) Qty: 60 0RF meloxicam 15 mg tablet 15 mg PO DAILY PRN (Reason: pain) Qty: 30 0RF multivitamin Capsule 1 cap PO DAILY (DME) DROP FOOT BRACE (left) See Rx Instructions .Route .MEDSUPPLY Qty: 1 0RF Rx Instructions: As directed cyclobenzaprine 10 mg tablet 10 mg PO BEDTIME PRN (Reason: muscle spasm) Qty: 30 3RF lisinopril-hydrochlorothiazide 20-25 mg tablet 1 tab PO DAILY Qty: 90 3RF Referrals: Everardo Aj MD [Primary Care Provider, Internal Medicine] Clinical Impression: Spasmodic torticollis Print Language: Turkmen
[2025-04-12] MEDS: Lidocaine 4 % Patch ADH..PATCH 1 PATCH TRANSDERMA (22:51)
== END 2025-04-12 23:12 | disposition home or self-care (01) ==
PROVIDERS: Emergency Provider Emergency Medicine; PCP Internal Medicine
DX: G24.3 Spasmodic torticollis (principal)
CPT/HCPCS: 99282; 99283

== ENCOUNTER 2025-04-18 14:59 | Outpatient (AMB) | payer OTHER, SELFPAY ==
[2025-04-18 15:20] VITALS: BMI 30.5
--- NOTE | 2025-04-18 15:20 | A.OFFVIS_ITS ---
Vital Signs 04/18/25 15:20 Height 6 ft Weight 225 lb BMI 30.5 Intake Visit Reasons: OV- Right knee MRI review Intake Note: Bill is a 55 year old male who presents for follow-up of his right knee pain. The patient states that he was recently seen in the emergency room with neck pain. He states that his neck pain has improved. He states that his knee symptoms began approximately 1 year ago when he had been treated for cellulitis of his right leg. He has also tried Tylenol, anti-inflammatory medicines and muscle relaxants which gave him minimal relief. Allergies amoxicillin Allergy (Unknown, Verified 04/18/25 15:21) Hives Medication List - Last Reconciled 04/19/25 by Frantz Pang MD acetaminophen 1,000 mg (2 x 500 mg) PO .q8 PRN cyclobenzaprine 10 mg PO BEDTIME PRN diazepam (Valium) 5 mg PO TID PRN [DROP FOOT BRACE (left) As directed] ibuprofen 600 mg PO Q8H PRN lisinopril-hydrochlorothiazide 20-25 mg 1 tab PO DAILY meloxicam 15 mg PO DAILY PRN metronidazole 1% (Metrogel) 1 appl topical BID PRN multivitamin 1 cap PO DAILY PFSH Medical History (Updated 04/13/25 @ 00:00 by Scot Garcia) Degenerative joint disease of right knee Obesity (BMI 30-39.9) Hyperuricemia Vitamin D deficiency Impaired fasting glucose Pure hypercholesterolemia Essential hypertension Lumbar degenerative disc disease Bursitis of right shoulder Surgical History History of colonoscopy History of carpal tunnel surgery History of lumbar laminectomy History of back surgery Family History Father CVD (cardiovascular disease) Mother No problems noted. 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 Cognitive needs: No Hearing needs: No Vision needs: No Physical Exam Vital Signs: BMI result Body Mass Index 30.5 Extrem Other: Right knee examination shows a minimal effusion, mild crepitus with range of motion, tenderness along his medial joint line, positive Ras's test, no instability Results Reviewed Results Reviewed: MRI of the patient's right knee shows mild to moderate diffuse degenerative changes as well as a tear of the medial meniscus and a loose body within the posterior aspect of the knee joint Assessment & Plan Assessment & Plan (1) Tear of medial meniscus of right knee: Code(s): S83.241A - Other tear of medial meniscus, current injury, right knee, initial encounter Category: Medical Plan Mr. Iverson presents with intermittent right knee pain due to early degenerative joint disease as well as a tear of his medial meniscus. I had a lengthy discussion with the patient regarding the treatment options. At this point the patient's symptoms are tolerable to him. He will continue with his activity modifications. He will follow up with me on an as-needed basis should his symptoms worsen in any way. Feel free to call me at any time should questions regarding his orthopedic management arise. I spent 22 minutes in reviewing the patient's records and imaging studies, seeing the patient and documenting in the medical record. Coding Level of Care Code Est Pt Level 3 (70926) Complex EM visit Add On G2211 Diagnoses Tear of medial meniscus of right knee S83.241A
--- OUTSIDE RECORDS SUMMARY | 2025-04-18 18:28 | XMS_ITS | Clinical Summary ---
Author Organization [facility] Address [address] [place] [address] Care Team Providers Care Shoe Salesman Name Role Phone Leroy Schneider MD Primary Care Provider [phone] Social History Tobacco Use Types Packs/Day Years [...] Vaccine (1 of 2) 01/28/2020 Influenza Vaccine 03/08/2025 COVID-19 Vaccine (1 - 2023- season) 2025 Insurance [employer] Care Teams Shoe Salesman Relationship Specialty Start Date End Date Leroy Schneider MD [address] [place] [address] PCP - General 04/02/20
--- OUTSIDE RECORDS SUMMARY | 2025-04-18 18:28 | XMS_ITS | Patient Health Record ---
Author Organization [facility] Address [address] [place] [address] Care Team Providers Care Jewel Cupping Machine Operator Name Role Phone Leroy Schneider MD Primary Care Provider Wili Navarro Jr Unavailable [phone] Allergies Allergen (clinical drug ingredient) Drug/Non Drug [...] Problem Status W/U Status Risk Notes Problem [id number] Colon cancer screening (Z12.11) Active confirmed Problem [id number] Encounter for other preprocedural examination (Z01.818) Active confirmed Plan Of Treatment Future Test Test Name Order Date COLONOSCOPY 06/02/2020 Insurance Providers Payer Name Payer Address Payer Phone Subscriber Number Group Number Insured Name Patient Relationship to Insured Coverage Start Date Coverage End Date [facility] [address] [place], [place] [id number] [employer]NA[employer] Self - patient is the insured Medical (General) History Medical History History ICD Code hypertension Surgical History Surgery Date(Month/Year) back surgery - lower 2003, 2017
--- OUTSIDE RECORDS SUMMARY | 2025-04-18 18:28 | XMS_ITS | Encounter Summary ---
Author Organization [facility] Address [address] [place] [id number] Care Team Providers Care Legal Paraprofessional Name Role Phone Leroy Schneider MD Primary Care Provider [phone] Encounter Details Date Type Department Care Team (Late st Contact Info) Description 05/08/2020 Scanned Document Formerly [facility] [address] [facility] [address] [place] [phone] Suresh Sellers MD [address] [facility] [place] [address] [place] [id number] Social History Tobacco Use Types Packs/Day Years [...] on filedocumented in this encounter Care Teams Legal Paraprofessional Relationship Specialty Start Date End Date Leroy Schneider MD [address] [place] [id number] PCP - General 04/02/20 documented as of this encounter
== END 2025-04-18 15:42 | disposition home or self-care (01) ==
LOC: HO.HOS 14:59
PROVIDERS: PCP Internal Medicine; Visit Provider Orthopaedic Surgery
DX: S83.241A Other tear of medial meniscus, current injury, right knee, initial encounter (principal)
CPT/HCPCS: 99213

== ENCOUNTER 2025-07-14 20:19 | Emergency (ER) | payer OTHER, SELFPAY ==
[2025-07-14] VITALS (7 sets, daily range): BP systolic 120–178; BP diastolic 72–103; PULSE 90–164; RESP 15–16; TEMP 36.9–37; O2SAT 96–97; BMI 29.9
--- NOTE | 2025-07-14 | ECG_ITS ---
Test Reason : RYTHUM CHANGE Blood Pressure : */* mmHG Vent. Rate : 88 BPM Atrial Rate : 88 BPM P-R Int : 180 ms QRS Dur : 122 ms QT Int : 362 ms P-R-T Axes : 42 -63 28 degrees QTcB Int : 438 ms Normal sinus rhythm Left anterior fascicular block Abnormal ECG When compared with ECG of 14-Jul-2025 20:27, Sinus rhythm has replaced Atrial fibrillation Vent. rate has decreased by [address] no longer depressed in Lateral leads Referred By: Erika Arellano Electronically Signed By: YUMI DOBBS MD
--- NOTE | ~2025-07-14 | XR_ITS ---
CLINICAL HISTORY: afib 2 view chest x-ray Comparison: CT - CT ANGIO CHEST PE PROTOCOL - 07/14/25 21:02 EST Findings: No consolidation, pleural effusion, or pneumothorax. Cardiac silhouette is within normal limits. No acute osseous abnormality. IMPRESSION: 1. No acute findings. This document has been electronically signed by: Alisha Jiang MD on 07/14/2025 21:56:38
--- NOTE | ~2025-07-14 | CT_ITS ---
CLINICAL HISTORY: sob CT angiography chest with contrast. 3D Postprocessing. Comparison: None provided Findings: NECK BASE: Limited views of the thyroid are unremarkable. LUNGS/PLEURA: No focal consolidation. PULM VASCULAR: No pulmonary embolism. MEDIASTINUM: No masses or lymphadenopathy. CARDIAC: No pericardial effusion. No cardiomegaly. AORTA: No aneurysm. CHEST WALL: No masses or axillary lymphadenopathy. LIMITED ABDOMEN: Limited views are unremarkable. BONES: No acute fracture. IMPRESSION: 1. Examination is limited by breathing motion artifact. No convincing pulmonary embolus. This document has been electronically signed by: Alisha Jiang MD on 07/14/2025 21:56:30
--- NOTE | 2025-07-14 20:22 | ECG_ITS ---
Test Reason : CHEST PAIN Blood Pressure : */* mmHG Vent. Rate : 180 BPM Atrial Rate : * BPM P-R Int : * ms QRS Dur : 104 ms QT Int : 280 ms P-R-T Axes : * -70 17 degrees QTcB Int : 484 ms Atrial fibrillation with rapid ventricular response Left axis deviation Incomplete right bundle branch block Nonspecific ST abnormality Abnormal ECG When compared with ECG of 19-Jan-2021 15:06, Atrial fibrillation has replaced Sinus rhythm Vent. rate has increased by 111 bpm Incomplete right bundle branch block is now Present Referred By: Generic ED Physician Electronically Signed By: YUMI DOBBS MD
[2025-07-14 20:46] LABS: Hematocrit 45.5 % (42.0-52.0); Hemoglobin 15.8 g/dl (14.0-18.0); Imm Gran Abs Auto 0.02 X10*3/uL (0.00-0.03); Imm Gran Pct Auto 0.2 % (0.0-0.4); Lymphocytes Absolute Auto 2.0 X10*3/uL (1.2-4.9); MANUAL DIFF FLAG NO; Mean Corpuscular HGB Conc 34.7 g/dl (31.0-36.0); Mean Corpuscular Hemoglobin 29.0 pg (27.0-33.0); Mean Corpuscular Volume 83.5 fL (80.0-98.0); NRBC Abs Auto 0.000 X10*3/uL (0.0-0.012); NRBC Pct Auto 0.0 /100WBC (0.0-0.2); Platelet Count 256 X10*3/uL (160-400); Red Blood Count 5.45 X10*6/uL (4.60-5.80); White Blood Count 10.6 X10*3/uL (4.8-10.8)
--- NOTE | 2025-07-14 20:53 | ED.ARRPALP ---
HPI - Arrhythmia/Palpitations General Chief Complaint: Arrhythmia/Palpitations Stated Complaint: Chest Palpitations Time Seen by Provider: 07/14/25 20:38 History of Present Illness HPI narrative: Patient is 55 years old presented today with having palpitation started about an hour prior to arrival. There is no fever no chills. Patient drinks alcohol only on a recreational basis. No leg swelling no history of blood clots. No chest pain or diaphoresis. Patient is from home. No recreational drugs. Related Data Home Medications ?Medication ?Instructions ?Recorded ?Confirmed multivitamin 1 cap PO DAILY 06/17/20 04/19/25 Previous Rx's ?Medication ?Instructions ?Recorded metronidazole 1 % topical gel 1 appl topical BID PRN rosacea #60 11/16/24 (Metrogel) grams cyclobenzaprine 10 mg tablet 10 mg PO BEDTIME PRN muscle spasm 01/17/25 #30 tabs lisinopril 20 1 tab PO DAILY #90 tabs 01/17/25 mg-hydrochlorothiazide 25 mg tablet meloxicam 15 mg tablet 15 mg PO DAILY PRN pain #30 tabs 03/16/25 DROP FOOT BRACE (left) #1 ea 03/27/25 acetaminophen 500 mg capsule 1,000 mg (2 x 500 mg) PO .q8 PRN 04/12/25 fever or pain #30 caps diazepam 5 mg tablet (Valium) 5 mg PO TID PRN muscle spasm #10 04/12/25 tabs ibuprofen 600 mg tablet 600 mg PO Q8H PRN fever or pain 04/12/25 #30 tabs diltiazem HCl 120 mg 120 mg PO DAILY #30 caps 07/14/25 capsule,extended release 24 hr (Cardizem CD) Allergies Allergy/AdvReac Type Severity Reaction Status Date / Time amoxicillin Allergy Unknown Hives Verified 07/14/25 20:38 Review of Systems Review of Systems: Positive palpitation. Positive shortness of breath Yes all other systems are reviewed and are negative PMFSH Past Medical History Attestation statement: The following information was validated with the patient. Medical History Degenerative joint disease of right knee Obesity (BMI 30-39.9) Hyperuricemia Vitamin D deficiency Impaired fasting glucose Pure hypercholesterolemia Essential hypertension Lumbar degenerative disc disease Bursitis of right shoulder Surgical History History of colonoscopy History of carpal tunnel surgery History of lumbar laminectomy History of back surgery Family History Family History Father CVD (cardiovascular disease) Mother No problems noted. 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 Oriented X3. No acute distress. Eyes: Pupils equal, round and reactive to light. ENT: Pharynx normal. Neck: Normal inspection. Neck supple. No lymph nodes noted. No crepitus CVS: tachycardic and irregular Respiratory: No respiratory distress. Breath sounds normal. No Wheezing. No rales Abdomen: Soft and nontender. No rigidity. No distention. good BS x4 Skin: Skin warm and dry. Normal skin color. Normal skin turgor. Extremities: No lower extremity edema. Neurovascular intact to all extremities. No Lacerations. No Rash Neuro: Oriented X 3. No motor deficit. No sensory deficit. Moving all extermities. No slurred speech Vital Signs: Vital Signs: Last Vital Signs Temp 98.4 F 07/14/25 20:36 Pulse 90 07/14/25 21:56 Resp 15 07/14/25 20:36 BP 178/100 H 07/14/25 21:25 Pulse Ox 97 07/14/25 20:36 O2 Del Method Room Air 07/14/25 20:36 BMI result Body Mass Index 29.9 Medications Administered Discontinued Medications Generic Name Dose Route Start Last Admin Trade Name Freq PRN Reason Stop Dose Admin Aspirin 324 mg 07/14/25 20:52 07/14/25 21:04 Aspirin 81 Mg Tab.Chew PO 07/14/25 20:53 324 mg ONCE ONE Administration Diltiazem HCl 25 mg 07/14/25 20:51 07/14/25 20:56 Diltiazem Hcl 50 Mg/10 Ml Vial IVPUSH 07/14/25 20:52 25 mg ONCE ONE Administration Diltiazem HCl 10 mg 07/14/25 21:21 07/14/25 21:25 Diltiazem Hcl 50 Mg/10 Ml Vial IVPUSH 07/14/25 21:22 10 mg ONCE ONE Administration Iohexol 65 ml 07/14/25 21:25 07/14/25 21:26 Iohexol 350 Mg/Ml 100 Ml Infus..Btl IV 07/14/25 21:26 65 ml ONCE ONE Administration Medical Decision Making Medical Decision Making [facility] Narrative: my interpretation of patient's EKG shows an atrial fibrillation heart rate is greater than 150 QRS is normal QTC is normal there is no acute ST segment elevation. Has no history of AFib before. Patient's thyroid was ordered. Electrolytes ordered. Will give 1 dose of Cardizem. Monitor carefully. Blood pressure is normal. No history of the same in the past. My calculation of patient's Domenic Vasc 2 score is a 1. Patient has a history of hypertension. He is 55 years old. No history of congestive heart failure. No known history of valvular AFib. Will hold on the anticoagulation for now. Patient was given 25 of Cardizem. Followed by another 10 mg of Cardizem. Monitored in the emergency department for about 1 hour. Spontaneously converted into a sinus pattern my interpretation of patient's 2nd EKG showed a sinus rhythm heart rate is 90 UT QRS QTC normal no acute ST segment elevation. The finding was discussed with Cardiology. Once patient to be started on Cardizem CD 120 mg daily. Will closely follow tomorrow in the office. Currently in stable condition given the CHADS-VASc 2 score is a 1 will not give any anticoagulation for now patient advised to closely follow-up worsening condition return. Differential Diagnosis Differential Diagnoses: The differential diagnosis associated with the presentation includes Hypothyroid, hyperthyroid, PE, ACS, EtOH, recreational drug use Admission/Observation Consideration of admission/observation: Escalation of care including admission/observation considered Lab Data [facility] Lab Attestation statement: I reviewed the patient's lab results. 07/14/25 20:42 07/14/25 20:42 Labs: Lab Results 07/14/25 Range/Units 20:42 WBC 10.6 (4.8-10.8) X10*3/uL RBC 5.45 (4.60-5.80) X10*6/uL Hgb 15.8 (14.0-18.0) g/dl Hct 45.5 (42.0-52.0) % MCV 83.5 (80.0-98.0) fL MCH 29.0 (27.0-33.0) pg MCHC 34.7 (31.0-36.0) g/dl RDW 12.5 (11.0-16.0) % Plt Count 256 (160-400) X10*3/uL MPV 9.8 (9.4-12.4) fL Immature Gran % (Auto) 0.2 (0.0-0.4) % Neut % (Auto) 71.3 (45-73) % Lymph % (Auto) 19.3 L (20-40) % Cascade % (Auto) 6.3 (2-11) % Eos % (Auto) 2.4 (0-4) % Baso % (Auto) 0.5 (0-2) % Lymph # (Auto) 2.0 (1.2-4.9) X10*3/uL Cascade # (Auto) 0.7 (0.1-1.2) X10*3/uL Eos # (Auto) 0.3 (0.0-0.4) X10*3/uL Baso # (Auto) 0.1 (0.0-0.2) X10*3/uL Abs Immat Gran (auto) 0.02 (0.00-0.03) X10*3/uL Absolute Neuts (auto) 7.5 (2.0-8.3) x10*3/uL Absolute Nucleated RBC 0.000 (0.0-0.012) X10*3/uL Nucleated RBC % (auto) 0.0 (0.0-0.2) /100WBC D-Dimer High Sensitivty 301 NG/ML Sodium 141 (135-145) mmol/L Potassium 3.8 (3.3-5.1) mmol/L Chloride 106 (96-108) mmol/L Carbon Dioxide 24 (22-29) mmol/L Anion Gap 15 (12-20) BUN 18 H (9-16) mg/dL Creatinine 0.84 (0.5-1.4) mg/dL Estim Creat Clear Calc 128.7 Estimated GFR > 60 Random Glucose 207 H (60-115) mg/dL Calcium 9.5 (8.4-10.2) mg/dL Total Bilirubin 0.4 (0.0-1.0) mg/dL AST 29 (5-37) U/L ALT 39 (0-40) U/L Alkaline Phosphatase 60 (39-117) U/L Troponin I High Sens < 2.7 (<3.5-35.0) ng/L Total Protein 8.1 H (6.5-8.0) g/dL Albumin 4.8 (3.5-5.0) g/dL TSH 1.63 (0.32-4.0) uIU/mL Independent Interpretation I performed an independent interpretation of an: EKG ( My interpretation patient's initial EKG shows an atrial fibrillation pattern heart rate is 180. My interpretation of patient's 2nd EKG showed sinus heart rate is 80 UT QRS QTC normal), Plain X-Ray ( chest x-ray grossly negative) and CT Scan Radiology Impression Discussion of test interpretation with radiology: I have reviewed the radiologist's reading. Chronic Conditions Patient?s care impacted by: Hypertension Critical Care Time Critical Care Time Critical Care Time: Yes Total Critical Care Time: 40 Attestation: I have personally provided 40 minutes of critical care time exclusive of time spent on separately billable procedures. Time includes review of lab data, radiology results, discussion with consultants, and monitoring for potential decompensation. Interventions were performed as documented above Discharge Plan Discharge Clinical Impression: Hypertension, A-fib Patient Disposition: Home, Self-Care Instructions: A-fib (Atrial Fibrillation) (ED) Additional Instructions: please call cardiology tomorrow for 1st appointment. Worsened condition return. Prescriptions: New diltiazem HCl [Cardizem CD] 120 mg capsule,extended release 24hr 120 mg PO DAILY Qty: 30 0RF No Action metronidazole [Metrogel] 1 % gel 1 appl topical BID PRN (Reason: rosacea) Qty: 60 0RF meloxicam 15 mg tablet 15 mg PO DAILY PRN (Reason: pain) Qty: 30 0RF multivitamin Capsule 1 cap PO DAILY acetaminophen 500 mg capsule 1,000 mg PO .q8 PRN (Reason: fever or pain) Qty: 30 0RF diazepam [Valium] 5 mg tablet 5 mg PO TID PRN (Reason: muscle spasm) Qty: 10 0RF ibuprofen 600 mg tablet 600 mg PO Q8H PRN (Reason: fever or pain) Qty: 30 0RF (DME) DROP FOOT BRACE (left) See Rx Instructions .Route .MEDSUPPLY Qty: 1 0RF Rx Instructions: As directed cyclobenzaprine 10 mg tablet 10 mg PO BEDTIME PRN (Reason: muscle spasm) Qty: 30 3RF lisinopril-hydrochlorothiazide 20-25 mg tablet 1 tab PO DAILY Qty: 90 3RF Referrals: Gaurav Glasogw MD [Physician, Cardiology] - 07/15/25 Print Language: Nigerian
[2025-07-14 20:54] LABS: D Dimer High Sensitivity 301 NG/ML
--- OUTSIDE RECORDS SUMMARY | 2025-07-14 20:56 | XMS_ITS | Encounter Summary ---
Author Organization [facility] Address [address] [place] [id number] Care Team Providers Care Product Info Specialist Name Role Phone Leroy Schneider MD Primary Care Provider [phone] Encounter Details Date Type Department Care Team (Late st Contact Info) Description 05/08/2020 Scanned Document [facility] [address] [facility] [address] [place] [id number] Suresh Sellers MD [address] [facility] [place] [address] [place] [id number] Social History Tobacco Use Types Packs/Day Years [...] on filedocumented in this encounter Care Teams Product Info Specialist Relationship Specialty Start Date End Date Leroy Schneider MD [address] [place] [id number] PCP - General 04/02/20 documented as of this encounter
--- OUTSIDE RECORDS SUMMARY | 2025-07-14 20:56 | XMS_ITS | Clinical Summary ---
Author Organization [facility] Address [address] [place] [address] Care Team Providers Care Scow Hand Name Role Phone Leroy Schneider MD Primary Care Provider [phone] Social History Tobacco Use Types Packs/Day Years [...] Influenza Vaccine 03/08/2025 COVID-19 Vaccine (1 - 2024- season) 2025 RSV Vaccine 50 years and old er and Patients (1 - 1-dose 75+ series) 2045 Insurance [employer] Care Teams Scow Hand Relationship Specialty Start Date End Date Leroy Schneider MD [address] [place] [address] PCP - General 04/02/20
--- OUTSIDE RECORDS SUMMARY | 2025-07-14 20:56 | XMS_ITS | Patient Health Record ---
Author Organization [facility] Address [address] [place] [address] Care Team Providers Care Contract Negotiation Specialist Name Role Phone Leroy Schneider MD [...] at 5:00 p.m. the day before the procedure; Duration: 1 day 06/02/2020 Active Multivitamin Active Lisinopril Active Tylenol Active Immunizations Vaccine Route Administration Date Status Comme nts Influenza Unknown 06/02/2020 Refused Social History Tobacco Use: Social History Observation Description Date Details (start date - stop date) Never Smoker NA - NA Social History Drugs/Alcohol: Social Info Question Answer Notes Alcohol Screen Did you have a drink containing alcohol in the past year? Yes How often did you have a drink containing alcohol in the past year? 2 to 4 times a month (2 points) How many drinks did you have on a typical day when you were drinking in the past year? 1 or 2 drinks (0 point) How often did you have 6 or more drinks on one occasion in the past year? 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, [employer] Problems Problem Type SNOMED Code ICD Code Onset Dates Problem Status W/U Status Risk Notes Problem Colon cancer screening (573688207) Colon cancer screening (Z12.11) Active confirmed Problem Pre-procedure evaluation check (730512598) Encounter for other preprocedural examination (Z01.818) Active confirmed Plan Of Treatment Future Test Test Name Order Date COLONOSCOPY 06/02/2020 Insurance Providers Payer Name Payer Address Payer Phone Subscriber Number Group Number Insured Name Patient Relationship to Insured Coverage Start Date Coverage End Date [facility] [address] [place], [place] [id number] MANAS SIMENTAL Self - patient is the insured Medical (General) History Medical History History ICD Code hypertension Surgical History Surgery Date(Month/Year) back surgery - lower 2017
[2025-07-14 21:06] LABS: Alanine Aminotransferase 39 U/L (0-40); Albumin Level 4.8 g/dL (3.5-5.0); Alkaline Phosphatase 60 U/L (39-117); Anion Gap 15 (12-20); Aspartate Amino Transferase 29 U/L (5-37); Blood Urea Nitrogen 18 mg/dL (9-16); Calcium 9.5 mg/dL (8.4-10.2); Carbon Dioxide 24 mmol/L (22-29); Chloride 106 mmol/L (96-108); Creatinine Clr Calc Pharmacy 128.7; Estimated Glomerular Filt Rate > 60; Potassium 3.8 mmol/L (3.3-5.1); Sodium 141 mmol/L (135-145); Total Protein 8.1 g/dL (6.5-8.0)
[2025-07-14 21:13] LABS: Troponin-I High Sensitivity < 2.7 ng/L (<3.5-35.0)
[2025-07-14 21:21] LABS: Thyroid Stimulating Hormone 1.63 uIU/mL (0.32-4.0)
[2025-07-14] MEDS: iohexoL 350 MG/ML 100 ML INFUS..BTL 65 ML IV (21:26)
--- NOTE | 2025-07-14 21:55 | PC.NURSE ---
While RN was waiting for tech to get a pump to start Cardizem drip, pt went into sinus rhythm heart rate in the 88-90s range, repeat EKG to be ordered.
== END 2025-07-14 23:06 | disposition home or self-care (01) ==
PROVIDERS: Emergency Provider Emergency Medicine Emergency Medical Services; PCP Internal Medicine
DX: I48.91 Unspecified atrial fibrillation (principal); I10 Essential (primary) hypertension; E79.0 Hyperuricemia without signs of inflammatory arthritis and tophaceous disease; E55.9 Vitamin D deficiency, unspecified; R73.01 Impaired fasting glucose; E78.00 Pure hypercholesterolemia, unspecified; Z79.899 Other long term (current) drug therapy
CPT/HCPCS: 36415; 71046; 71275; 80053; 84443; 84484; 85025; 85379; 93005; 99285; J1163; Q9967

== ENCOUNTER → 2025-07-14 20:22 | Outpatient (BNV) | payer OTHER, SELFPAY | PROVIDERS: Emergency Provider Emergency Medicine Emergency Medical Services; PCP Internal Medicine; Visit Provider Internal Medicine Cardiovascular Disease | DX: I48.91 Unspecified atrial fibrillation (principal); I45.10 Unspecified right bundle-branch block; I44.4 Left anterior fascicular block | CPT/HCPCS: 93010 ==

== ENCOUNTER → 2025-07-14 21:10 | Outpatient (BNV) | payer OTHER, SELFPAY | PROVIDERS: Emergency Provider Emergency Medicine Emergency Medical Services; PCP Internal Medicine; Visit Provider Student in an Organized Health Care Education/Training Program | DX: R06.02 Shortness of breath (principal); I48.91 Unspecified atrial fibrillation | CPT/HCPCS: 71046; 71275 ==